=== PATIENT | male | born 1950 | race Caucasian/White ===

== ENCOUNTER → 2019-01-21 | Outpatient (CLI) | payer MEDICAID, SELFPAY | END | disposition home or self-care (01) | PROVIDERS: Family Provider Physician Assistant; PCP Physician Assistant; Referring Provider Emergency Medicine; Visit Provider Emergency Medicine | DX: R07.9 Chest pain, unspecified (principal) | CPT/HCPCS: 84484 ==

== ENCOUNTER 2019-01-22 15:20 | Observation (INO) | payer MEDICARE, SELFPAY ==
[2019-01-22 15:22] VITALS: BP 113/67; PULSE 54; RESP 16; TEMP 36.6; O2SAT 98; BMI 27.4
--- NOTE | 2019-01-22 15:46 | CT_ITS ---
STUDY: CT ABDOMEN AND PELVIS WITH CONTRAST REASON FOR EXAM: Male, 68 years old. Diffuse abdominal pain with history of prior AAA repair RADIATION DOSAGE (If Supplied By Facility): CTDIvol = ( 15.66 ) mGy, DLP = ( 882.48 ) mGycm TECHNIQUE: Transaxial images were obtained from the dome of the diaphragm to the symphysis pubis without oral contrast. IV Isovue 300 75 was administered. Sagittal and coronal images were reconstructed. Individualized dose optimization techniques were used for this CT. COMPARISON: None. FINDINGS: The visualized portions of the heart are within normal limits. Normal liver. There are surgical clips in the gallbladder fossa consistent with a prior cholecystectomy. Normal spleen. Normal pancreas. Normal bilateral adrenal glands. Atrophy of the bilateral kidneys. There are simple bilateral renal cysts. Normal visualized stomach. Normal small intestine. There is long segment (diffuse) wall thickening of the colon including the right, transverse and left colon. There is non-visualization of the appendix. Significant tortuosity of descending thoracic aorta. There is a granuloma in the left lower lobe. Aortobiiliac stent graft is identified with abdominal aortic aneurysm measuring up to 5.9 cm. No endoleak or periaortic fluid/extravasation. Normal inferior vena cava. There is borderline retroperitoneal lymphadenopathy with enlarged nodes no greater than 10mm in the short axis diameter adjacent to the proximal aortic stent graft (renal artery level). Normal urinary bladder. There is enlargement of the prostate gland. Normal abdominal wall. There are diffuse degenerative changes of the visualized lumbar spine. CT/Abdomen/Pelvis W IV Cont ONLY IMPRESSION: 1. Long segment/diffuse colon wall thickening suggesting colitis. No evidence of bowel obstruction. No focal fluid collection. 2. Mild mid retroperitoneal adenopathy without dominant va mass (adjacent to proximal aortic stent graft margin). Electronically Signed: Yonis Bella MD (Brooks) at 17:08 EDT , Service support ,
--- NOTE | 2019-01-22 15:46 | EKG12_ITS ---
Test Reason : Blood Pressure : / mmHG Vent. Rate : 048 BPM Atrial Rate : 048 BPM P-R Int : 174 ms QRS Dur : 090 ms QT Int : 474 ms P-R-T Axes : 066 051 035 degrees QTc Int : 423 ms Sinus bradycardia Otherwise normal ECG Confirmed by GIULIANO ROPER, MADELEINE ([id number]), video effects editor FROILAN NEWTON ([id number]) on 02/02/2019 9:16:04 A M Referred By: DARIEN Confirmed By:MARISELA NOBLES MD
--- NOTE | 2019-01-22 15:47 | ED.DCSUM_ITS ---
History of Present Illness Chief Complaint: Nausea/Vomiting/Diarrhea Informant: Patient Onset: Days - 4 Context: Gradual Onset Timing: Intermittent Narrative: Patient is a 68-year-old male with history of coronary artery disease ([address]), aortic aneurysm status post stenting-patient, chronic diarrhea, and hypertension presenting with vomiting and diarrhea. Patient states he has not been feeling well for the past few days and has not been able to eat. He states whenever he eats he has vomiting and diarrhea. He states he had 2 episodes of diarrhea today. He denies any blood in his vomit or stool. He has not had any vomiting today. He is taken Imodium is not been helping. Patient denies any associated abdominal pain, chest pain, shortness of breath, sweating or urinary symptoms. Patient states his symptoms are slightly improved today but still present. He went to urgent care at [facility] yesterday. He was sent home. Patient was then called because apparently he was supposed to go to the emergency room for a CT. Patient states that he is not sure why they wanted a CT but that it was because he has a bent aorta. Past Medical History - Allergies and Home Meds Allergies/Adverse Reactions: Allergies tiotropium [From Spiriva with HandiHaler] Allergy (Verified 01/22/19 15:21) Swelling Smoking Status: Current every day smoker Review of Systems All systems negative except as indicated Gastrointestinal: Reports: Nausea, Vomiting, Diarrhea. Denies: Melena, Hematochezia Physical Exam Vital Signs/Narrative: Vital Signs Temp Pulse Resp BP Pulse Ox 01/22/19 15:22 97.9 F 54 L 16 113/67 98 Inital Vital Signs reviewed: Yes General: Well nourished, Well developed, No Acute Distress Head: Normocephalic, Atraumatic Eyes: Perrl, EOMI ENT: No rhinorrhea, Dry mucous membranes Neck: Supple, Nontender Cardiovascular: Regular rate, Regular rhythm, No murmurs Respiratory: No distress, CTA bilaterally, Chest nontender Abdomen: Soft, Nontender, Nondistended, Hypoactive bowel sounds, - - No pulsatile mass Back: Nontender, Normal Inspection Extremities: Nontender, No edema Skin: Normal color, No rash Neurological: Alert, Oriented x3, Cranial nerves II-XII grossly intact, Normal Strength, Normal Sensation Psychological: Normal affect, Normal Mood Diagnostic/Tx/Re-eval Clinical Impression(s) from Imaging Studies Abdomen/Pelvis CT 01/22/19 15:46 IMPRESSION: 1. Long segment/diffuse colon wall thickening suggesting colitis. No evidence of bowel obstruction. No focal fluid collection. 2. Mild mid retroperitoneal adenopathy without dominant va mass (adjacent to proximal aortic stent graft margin). Electronically Signed: Yonis Bella MD (Brooks) at 17:08 EDT , Service support , Laboratory Data 01/22/19 01/22/19 15:56 15:56 WBC 6.8 RBC 4.44 L Hgb 14.7 Hct 44.2 MCV 99.5 H MCH 33.1 H MCHC 33.3 RDW Std Deviation 46.8 H RDW Coeff of Kylie 12.8 Plt Count 163 MPV 9.5 Immature Gran % (Auto) 0.300 Neut % (Auto) 64.2 Lymph % (Auto) 25.7 [place] % (Auto) 7.1 Eos % (Auto) 2.1 Baso % (Auto) 0.6 Absolute Neuts (auto) 4.4 Absolute Lymphs (auto) 1.75 Nucleated RBC % 0 Sodium 137 Potassium 3.9 Chloride 104 Carbon Dioxide 29.0 Anion Gap 4 L BUN 29 H Creatinine 1.93 H Estim Creat Clear Calc 30.25 Est GFR (MDRD) Af Amer 45 L Est GFR (MDRD) Non-Af 37 L BUN/Creatinine Ratio 15.0 Glucose 166 H Calcium 9.5 Total Bilirubin 0.50 AST 16 ALT 18 Alkaline Phosphatase 95 Troponin I < 0.015 Total Protein 8.6 H Albumin 3.7 Globulin 4.9 H Albumin/Globulin Ratio 0.8 L Lipase 110 - Rhythm Strip Rhythm Strip: Sinus bradycardia Rate: 48 Ectopy: None - EKG Initial EKG Interpretation: Sinus Bradycardia, - - Normal intervals Normal ST segments Normal axis No prior EKG available for comparison - Medical Decision Making Patient is evaluated for a couple days of diarrhea and decreased appetite. He appears nontoxic in no acute distress. Vital signs remarkable for bradycardia. Patient is on blood pressure medication which may cause this. Abdomen is soft and nontender. He has normal white blood cell count. Patient does not have diarrhea while in the emergency room. I do not suspect C. difficile at this time however stool culture is ordered. Patient does have an elevated creatinine. His states he has a history of CKD 3. No prior lab work is available so I am not sure if this is an acute or chronic elevation of his crea tinine. Patient is given a liter of IV fluids in the emergency room. CT of the abdomen does show colitis. He will be admitted for IV antibiotics and further monitoring. He is agreeable to this plan. He is given first dose of Rocephin and Flagyl in the emergency room. He is stable for the general medical floor at time of disposition. ED Disposition - Plan for ED Patient: Disposition: Acute [facility] Diagnosis: Colitis, Elevated serum creatinine
[2019-01-22] MEDS: Ondansetron 4 MG/2 ML Vial IV (16:01)
[2019-01-22] MEDS: 0.9% Normal Saline 1,000 ML 1000 ML IV (16:01)
[2019-01-22 16:21] LABS: ALB/GLOB Ratio 0.8 RATIO (0.9-2.4); AST(SGOT) 16 U/L (15-37); Alanine Aminotransfer ALT/SGPT 18 U/L (16-61); Albumin, Serum 3.7 g/dL (3.2-5.0); Alkaline Phosphatase 95 U/L (45-117); Anion Gap 4 (5-15); BUN 29 mg/dL (7-18); Calcium,Total 9.5 mg/dL (8.5-10.1); Chloride 104 mmol/L (98-107); Creatinine, Serum 1.93 mg/dL (0.70-1.30); EST Glomerular Filtration Rate 37 mL/min (>60); Est Glom Filt Rate - Afr Amer 45 mL/min (>60); Estimated Creatinine Clearance 30.25 ml/min; Globulin 4.9 g/dL (2.2-4.2); Glucose 166 mg/dL (74-106); Lipase 110 U/L (73-393); Potassium 3.9 mmol/L (3.5-5.1); Protein, Total 8.6 g/dL (6.4-8.2); Sodium Level 137 mmol/L (136-145)
[2019-01-22 16:24] LABS: Absolute Lymphocyte Count 1.75 X10^3/uL (0.83-4.51); Absolute Neutrophil Count 4.4 X10^3/uL (2.0-7.7); Basophil# 0.04 X10^3/uL; Basophil% 0.6 % (0-1); Eosinophil# 0.14 X10^3/uL; Eosinophils% 2.1 % (0-5); Hematocrit 44.2 % (40-54); Hemoglobin 14.7 g/dL (13.0-16.5); Lymphocyte # 1.75 X10^3/ul (4.0); Lymphocyte % 25.7 % (19-41); Mean Corp Hgb Conc 33.3 g/dL (32-36); Mean Corpuscular Hgb 33.1 pg (27.0-32.0); Mean Corpuscular Volume 99.5 fL (80-94); Mean Platelet Vol. 9.5 fl (6.2-12.0); Monocyte# 0.48 X10^3/uL; Monocyte% 7.1 % (0-10); NRBC Flagged by Analyzer 0 % (0-5); Neutrophil # 4.37 X10^3/uL (2.7-7.7); Neutrophil % 64.2 % (47-70); Platelet Count 163 K/mm3 (150-450); RBC Distribution Width CV 12.8 % (11.6-14.6); RBC Distribution Width SD 46.8 fl (35.1-43.9); Red Blood Count 4.44 M/mm3 (4.6-6.2); White Blood Count 6.8 K/mm3 (4.4-11.0)
--- NOTE | 2019-01-22 17:36 | HP.PCM_ITS ---
History of Present Illness Date of Admission: 01/22/19 Chief Complaint: diarrhea and vomiting The patient is a 68 year old M with a past medical history of CAD status post stents x2 in 2014, and hypertension. He was admitted through the ED on 01/22/2019 with a complaint of diarrhea and vomiting for the past few days prior to admission. He had no assisted fever and chills and denied taking any antibiotics recently. He had gone to a [facility] urgent care on the day prior to admission and was sent home. However on the morning of admission, his daughter was called from the urgent care and told that an x-ray of his abdomen which was done on the day of admission showed a twist in his aorta in his chest and abdomen so recommended that he come to the emergency room for a CT scan to evaluate this. Diarrhea has improved and he had only 2 episodes today. he also complained of mild chest pain yesterday, which resolved spontaneously, and he hasnt had any symptoms since then. He is able to tolerate oral liquids but he was up when he takes solids. Patient states he has been told he has stage III kidney disease and is scheduled to see a professional tutor soon. also said that he had been noted to have a slow heart rate and his heart rate went as low as 47 today. Patient is on beta-blockers on account of CAD but states he has not had a history of slow heart rate in the past. Evaluation in the ED, blood pressure was 147/87 and pulse rate was 50. Chemistry showed creatinine of 1.93 with no baseline in the EMR; chemistry was otherwise normal. CBC showed no leukocytosis and was otherwise normal. CT of the abdomen and pelvis done showed a long segment diffuse colon wall thickening suggesting colitis with no evidence of bowel obstruction and no focal fluid collection with mild mid retroperitoneal adenopathy without dominant va mass. He has been admitted to be managed for colitis. [] Past Medical History Allergies tiotropium [From Spiriva with HandiHaler] Allergy (Verified 01/22/19 15:21) Swelling Home Medications: Ambulatory Orders Medication Instructions Recorded Albuterol Inhaler [Ventolin Hfa 2 puff INHALATION Q4H PRN PRN 01/22/19 (SP)] Amlodipine [Norvasc] 5 mg PO DAILY 01/22/19 Aspirin E.C. [Ecotrin] 81 mg PO DAILY@0800 01/22/19 Atorvastatin Calcium [Lipitor] 20 mg PO QHS 01/22/19 Budesonide/Formoterol Fumarate 10.2 gm IH 4X/DAY PRN PRN 01/22/19 [Symbicort 80-4.5 Mcg Inhaler] Carvedilol 25 mg PO DAILY 01/22/19 Cholecalciferol (Vitamin D3) 1,000 unit PO DAILY 01/22/19 [Vitamin D3] Clonidine HCl [Catapres] 0.1 mg PO BID 01/22/19 Clopidogrel Bisulfate [Clopidogrel] 75 mg PO DAILY 01/22/19 Duloxetine Hcl [Cymbalta] 30 mg PO BID 01/22/19 Famotidine [Pepcid] 20 mg PO BID 01/22/19 Loperamide [Imodium] 2 mg PO BID 01/22/19 Loratadine [Claritin] 10 mg PO DAILY 01/22/19 Mometasone Furoate [Nasonex] 2 spray NASAL DAILY 01/22/19 Prednisone 20 mg PO DAILY 01/22/19 Surgical History: no surgical history Psychiatric History: Depression Lives: Spouse/ Significant Other Smoking Status: Current every day smoker Tobacco Use: Cigarettes - Half pack daily Alcohol: None Drugs: None - *Family History Maternal History Items: No pertinent history Paternal History Items: No pertinent history Review of Systems Constitutional: Denies: Chills, Fever, Malaise, Weakness, Weight Change, Fatigue Eyes: Denies: Blurred vision HEENT: Denies: Head Aches, Sinus Congestion, Sinus Drainage Cardiovascular: Denies: Chest Pain, Palpitations Respiratory: Denies: Cough, Shortness of breath at rest, Sputum production Gastrointestinal: Reports: Diarrhea, Nausea, Vomiting. Denies: Abdominal Pain Genitourinary: Denies: Dysuria Musculoskeletal: Denies: Joint Pain, Joint Tenderness Skin: Denies: Rash, Wounds Neurological: Denies: Numbness, Tingling, Focal weakness Psychiatric: Denies: Anxiety, Depression, Homicidal Ideations, Suicidal Ideations Hematologic/ Lymphatic: Denies: Easy Bruising, Easy Bleeding VTE Information - Inpt Only VTE Present on Admission: No VTE Pharm Prophylaxis ordered?: Yes - Physical Exam General: Alert, Oriented x3, Cooperative, No apparent distress HEENT: Atraumatic, PERRLA, EOMI, Normocephalic Oral: Dry Mucosa Neck: Supple, No JVD, Negative Carotid Bruits Lungs: Clear to auscultation, Normal air movement, No rhonchi, No wheeze, No rales Cardiovascular: Regular rate, Regular Rhythm, Normal S1, Normal S2, No murmurs Abdomen: Bowel Sounds Present, Soft, Non Tender, Non-Distended, No Hepato- splenomegaly Extremities: No clubbing, No cyanosis, No edema, Capillary Refill Less than 3 Seconds Skin: No rashes, No breakdown Musculoskeletal: No Tenderness to Palpation of Joints or Extremities Lymphatic: No Cervical, Supraclavicular, or Inguinal Adenopathy Neurological: Cranial nerves II-XII grossly intact, Neuro grossly intact, Motor Exam 5/5 strength throughout Psych/Mental Status: Normal Affect, Appropriate, Alert and oriented to time, place, person, mood and affect Vital Signs Temp Pulse Resp BP Pulse Ox 97.9 F 54 L 16 113/67 98 01/22/19 15:22 01/22/19 15:22 01/22/19 15:22 01/22/19 15:22 01/22/19 15:22 Oxygen Delivery Method Room Air Weight: 160 lb Body Mass Index (BMI) 27.4 Intake and Output for Last 24 Hours 01/20/19 01/21/19 01/22/19 23:59 23:59 23:59 Intake Total 1000 / 1000 Balance 1000 / 1000 Laboratory Tests Past 24 Hrs 01/22/19 01/22/19 15:56 15:56 WBC 6.8 RBC 4.44 L Hgb 14.7 Hct 44.2 MCV 99.5 H MCH 33.1 H MCHC 33.3 RDW Std Deviation 46.8 H RDW Coeff of Kylie 12.8 Plt Count 163 MPV 9.5 Immature Gran % (Auto) 0.300 Neut % (Auto) 64.2 Lymph % (Auto) 25.7 [place] % (Auto) 7.1 Eos % (Auto) 2.1 Baso % (Auto) 0.6 Absolute Neuts (auto) 4.4 Absolute Lymphs (auto) 1.75 Nucleated RBC % 0 Sodium 137 Potassium 3.9 Chloride 104 Carbon Dioxide 29.0 Anion Gap 4 L BUN 29 H Creatinine 1.93 H Estim Creat Clear Calc 30.25 Est GFR (MDRD) Af Amer 45 L Est GFR (MDRD) Non-Af 37 L BUN/Creatinine Ratio 15.0 Glucose 166 H Calcium 9.5 Total Bilirubin 0.50 AST 16 ALT 18 Alkaline Phosphatase 95 Troponin I < 0.015 Total Protein 8.6 H Albumin 3.7 Globulin 4.9 H Albumin/Globulin Ratio 0.8 L Lipase 110 Diagnostic Data Abdomen/Pelvis CT 01/22/19 15:46 IMPRESSION: 1. Long segment/diffuse colon wall thickening suggesting colitis. No evidence of bowel obstruction. No focal fluid collection. 2. Mild mid retroperitoneal adenopathy without dominant va mass (adjacent to proximal aortic stent graft margin). Electronically Signed: Yonis Bella MD (Brooks) at 17:08 EDT , Service support , Assessment/Plan 68 y/o admitted with a complaint of diarrhea and vomiting. 1. colitis, likely infectious * patient has had 2 episodes of nonbloody diarrhea and vomiting today * denies any significant abdominal pain * CT abdomen showed long segment/diffuse colon wall thickening suggesting colitis with no bowel obstruction or focal fluid collection * admit to Med surg * hydrate with IVF * C Diff screen * patient says diarrhea is actually getting better, and he is able to tolerate oral diet. Patient received a dose of IV ceftriaxone and flagyl in the ED * clear liquid diet, to advance as tolerated. * 2. Bradycardia * HR was 50 at time of review; says HR was as low as 47 on admission. Doesnt have a history of bradycardia. * Hold beta blockers for now and monitor * 3.CAD s/p stents: had 2 stents placed in [place] in 2016. On aspirin, Plavix, atorvastatin and carvedilol. Carvedilol currently on hold. 4. CKD stage III: * Creatinine is 1.93. Baseline is not known. * However patient and his state he has been diagnosed with CKD stage III and is scheduled to follow-up with Dr. Bettye horowitz. * 5. Hypertension: On amlodipine and carvedilol. Also on clonidine. Carvedilol held as under 2. DVT prophylaxis: Lovenox Code Visit OBSV E&M: 43393 Initial observation care L2
[2019-01-22] MEDS: Ceftriaxone 1 GM/50 ML BAG IV (17:55)
[2019-01-22 17:56] VITALS: BP 147/87; PULSE 50; RESP 16; O2SAT 92
[2019-01-22 18:20] VITALS: BMI 28.0; BMI 28.1
[2019-01-22 18:35] VITALS: BP 144/80; PULSE 53; RESP 18; TEMP 36.8; O2SAT 92
[2019-01-22] MEDS: 0.9% Normal Saline 1,000 ML 150 ML IV (18:51)
[2019-01-22] MEDS: metroNIDAZOLE 500 MG/100 ML BAG 100 MG IV (18:53)
[2019-01-22 19:38] LABS: Bacteria 0 SEEN /hpf (None Seen); Mucous, Urine 0 SEEN /hpf (<or=2+); White Blood Cells 0 SEEN /hpf (0-5)
[2019-01-22 19:43] LABS: Color, Urine Yellow (Yellow); Glucose, Dipstick Normal (Normal); Ketone-Dipstick Negative (Negative); Leukocyte Esterase-Dipstick Negative /ul (Negative); Nitrite-Dipstick Negative (Negative); Occult Blood-Urine 25 /ul (Negative); Protein-Dipstick 30 mg/dl (Negative); Specific Gravity, Urine 1.015 (1.002-1.030); Urine Bilirubin Dipstick Negative (Negative); Urine Clarity Sl. Cloudy (Clear); Urine Urobilinogen 1 mg/dl (Normal)
[2019-01-22 19:49] LABS: Red Blood Cells-Urine 0-5 SEEN /hpf (0-5)
[2019-01-22 19:50] LABS: Amorphous Sediment 1+ URATE; Squamous Epithelial Cells - UA 0-5 SEEN /hpf (0-5)
--- NOTE | 2019-01-22 20:10 | NURSING ---
Updated home medication list provided by pt's daughter. Changes made to home med list in computer and made known to primary RN.
[2019-01-22 21:32] VITALS: BP 148/82; PULSE 58; RESP 16; TEMP 36.4; O2SAT 96
[2019-01-22] MEDS: DULoxetine Hcl 30 MG Capsule PO (21:40)
[2019-01-22] MEDS: cloNIDine HCl 0.1 MG Tablet PO (21:40)
[2019-01-22] MEDS: Atorvastatin Calcium 20 MG Tablet PO (21:40)
[2019-01-22 21:46] VITALS: O2SAT 96
[2019-01-23] MEDS: 0.9% Normal Saline 1,000 ML 150 ML IV (02:37)
[2019-01-23 04:37] VITALS: BP 150/74; PULSE 60; RESP 18; TEMP 36.3; O2SAT 96
[2019-01-23] MEDS: 0.9% NaCl Peripheral Flush Adult/Peds IV (04:49)
[2019-01-23 04:55] VITALS: PULSE 56; RESP 14; O2SAT 92
[2019-01-23] MEDS: Albuterol 2.5 MG/3 ML VIAL.NEB. INHALATION (04:55)
[2019-01-23 07:12] VITALS: O2SAT 96
[2019-01-23 07:36] VITALS: BP 140/60; PULSE 57; RESP 20; TEMP 36.5; O2SAT 93
[2019-01-23] MEDS: Fluticasone 0.05% 1 SPRAY NASAL.SRY NASAL (07:39)
[2019-01-23] MEDS: amLODIPine 5 MG Tablet PO (07:40)
[2019-01-23] MEDS: Clopidogrel Bisulfate 75 MG Tablet PO (07:41)
[2019-01-23] MEDS: DULoxetine Hcl 30 MG Capsule PO (07:41)
[2019-01-23] MEDS: Famotidine 20 MG Tablet PO (07:41)
[2019-01-23] MEDS: Aspirin E.C. 81 MG Tablet PO (07:41)
[2019-01-23] MEDS: cloNIDine HCl 0.1 MG Tablet PO ×2 (07:41→21:19)
[2019-01-23] MEDS: Loratadine 10 MG Tablet PO (07:41)
[2019-01-23 08:09] LABS: Anion Gap 6 (5-15); BUN 23 mg/dL (7-18); BUN/Creat Ratio 14.6 RATIO (10-20); Calcium,Total 8.5 mg/dL (8.5-10.1); Chloride 111 mmol/L (98-107); Creatinine, Serum 1.57 mg/dL (0.70-1.30); EST Glomerular Filtration Rate 47 mL/min (>60); Est Glom Filt Rate - Afr Amer 57 mL/min (>60); Estimated Creatinine Clearance 37.18 ml/min; Glucose 91 mg/dL (74-106); Potassium 4.1 mmol/L (3.5-5.1); Sodium Level 141 mmol/L (136-145)
[2019-01-23 08:10] LABS: Thyroid Stim Hormone (TSH) 1.22 uIU/mL (0.358-3.74)
[2019-01-23 08:54] LABS: Basophil% 0.6 % (0-1); Eosinophils% 2.2 % (0-5); Hematocrit 40.2 % (40-54); Hemoglobin 13.3 g/dL (13.0-16.5); Lymphocyte % 30.8 % (19-41); Mean Corp Hgb Conc 33.1 g/dL (32-36); Mean Corpuscular Hgb 33.4 pg (27.0-32.0); Mean Platelet Vol. 9.5 fl (6.2-12.0); Monocyte% 11.1 % (0-10); Platelet Count 142 K/mm3 (150-450); RBC Distribution Width CV 13.1 % (11.6-14.6); RBC Distribution Width SD 48.3 fl (35.1-43.9); Red Blood Count 3.98 M/mm3 (4.6-6.2); White Blood Count 6.4 K/mm3 (4.4-11.0)
[2019-01-23 08:55] LABS: Absolute Lymphocyte Count 1.97 X10^3/uL (0.83-4.51); Absolute Neutrophil Count 3.5 X10^3/uL (2.0-7.7); Basophil# 0.04 X10^3/uL; Eosinophil# 0.14 X10^3/uL; Lymphocyte # 1.97 X10^3/ul (4.0); Monocyte# 0.71 X10^3/uL; NRBC Flagged by Analyzer 0 % (0-5); Neutrophil # 3.52 X10^3/uL (2.7-7.7)
[2019-01-23] MEDS: Ciprofloxacin 400 MG/200 ML BAG 200 MG IV ×2 (10:02→22:40)
[2019-01-23] MEDS: 0.9% NaCl IVPB Med Flush (250 mL) 15 ML IV (11:24)
[2019-01-23] MEDS: metroNIDAZOLE 500 MG/100 ML BAG 100 MG IV ×2 (11:24→21:19)
--- NOTE | 2019-01-23 12:43 | PN_ITS ---
Patient Problems: Active and Suspected Problems Colitis (Acute) Subjective: Feels better. No further diarrhea. Vitals/I&O's: Vital Signs Temp Pulse Resp BP Pulse Ox 36.5 C L 57 L 20 H 140/60 H 93 01/23/19 07:36 01/23/19 07:36 01/23/19 07:36 01/23/19 07:36 01/23/19 07:36 Oxygen Flow Rate (L/min) 2 Oxygen Delivery Method Nasal Cannula Weight: 74.2 kg Body Mass Index (BMI) 28.0 Intake and Output for Last 24 Hours 01/21/19 01/22/19 01/23/19 23:59 23:59 23:59 Intake Total 1152.5 / 1152.5 2397.5 / 2397.5 Balance 1152.5 / 1152.5 2397.5 / 2397.5 General: Alert, No apparent distress HEENT: Atraumatic, Normocephalic Oral: Moist Mucosa, No Gingival or Mucosal Lesions/ Ulcerations Neck: No Nodes, Thyroid Normal Size and Texture Lungs: Clear to auscultation, Normal air movement, No rhonchi, No wheeze Cardiovascular: Regular rate, Regular Rhythm, Normal S1, Normal S2, No murmurs Abdomen: Bowel Sounds Present, Soft, Non Tender, Non-Distended, No Hepato- splenomegaly Extremities: No edema, No Calf Tenderness Psych/Mental Status: Normal Affect, Appropriate Laboratory Results 01/22/19 15:56: WBC 6.8, RBC 4.44 L, Hgb 14.7, Hct 44.2, MCV 99.5 H, MCH 33.1 H, MCHC 33.3, RDW Std Deviation 46.8 H, RDW Coeff of Kylie 12.8, Plt Count 163, MPV 9.5, Immature Gran % (Auto) 0.300, Neut % (Auto) 64.2, Lymph % (Auto) 25.7, Lucas % (Auto) 7.1, Eos % (Auto) 2.1, Baso % (Auto) 0.6, Absolute Neuts (auto) 4.4, Absolute Lymphs (auto) 1.75, Nucleated RBC % 0 01/22/19 15:56: Sodium 137, Potassium 3.9, Chloride 104, Carbon Dioxide 29.0, Anion Gap 4 L, BUN 29 H, Creatinine 1.93 H, Estim Creat Clear Calc 30.25, Est GFR (MDRD) Af Amer 45 L, Est GFR (MDRD) Non-Af 37 L, BUN/Creatinine Ratio 15.0, Glucose 166 H, Calcium 9.5, Total Bilirubin 0.50, AST 16, ALT 18, Alkaline Phosphatase 95, Troponin I < 0.015, Total Protein 8.6 H, Albumin 3.7, Globulin 4.9 H, Albumin/Globulin Ratio 0.8 L, Lipase 110 01/22/19 19:30: Urine Color Yellow, Urine Clarity Sl. Cloudy, Urine pH 6.0, Ur Specific Richards 1.015, Urine Protein 30 H, Urine Glucose (UA) Normal, Urine Ketones Negative, Urine Occult Blood 25 H, Urine Nitrite Negative, Urine Bilirubin Negative, Urine Urobilinogen 1 H, Ur Leukocyte Esterase Negative, Urine RBC 0-5 SEEN, Urine WBC 0 SEEN, Ur Squamous Epith Cells 0-5 SEEN, Amorphous Sediment 1+ URATE, Urine Bacteria 0 SEEN, Urine Mucus 0 SEEN 01/23/19 06:38: Sodium 141, Potassium 4.1, Chloride 111 H, Carbon Dioxide 24.0, Anion Gap 6, BUN 23 H, Creatinine 1.57 H, Estim Creat Clear Calc 37.18, Est GFR (MDRD) Af Amer 57 L, Est GFR (MDRD) Non-Af 47 L, BUN/Creatinine Ratio 14.6, Glucose 91, Calcium 8.5, TSH 1.22 01/23/19 06:38: WBC 6.4, RBC 3.98 L, Hgb 13.3, Hct 40.2, MCV 101.0 H, MCH 33.4 H , MCHC 33.1, RDW Std Deviation 48.3 H, RDW Coeff of Kylie 13.1, Plt Count 142 L, MPV 9.5, Immature Gran % (Auto) 0.300, Neut % (Auto) 55.0, Lymph % (Auto) 30.8, Lucas % (Auto) 11.1 H, Eos % (Auto) 2.2, Baso % (Auto) 0.6, Absolute Neuts (auto) 3.5, Absolute Lymphs (auto) 1.97, Nucleated RBC % 0 Current Medications Albuterol Sulfate (Ventolin Aerosols) 2.5 mg INHALATION Q4H PRN Last Admin: 01/23/19 04:55 Dose: 2.5 mg Documented by: Amlodipine Besylate (Norvasc) 5 mg PO DAILY [facility] Last Admin: 01/23/19 07:40 Dose: 5 mg Documented by: Aspirin (Ecotrin) 81 mg PO DAILY@0800 [facility] Last Admin: 01/23/19 07:41 Dose: 81 mg Documented by: Atorvastatin Calcium (Lipitor) 20 mg PO QHS [facility] Last Admin: 01/22/19 21:40 Dose: 20 mg Documented by: Cholecalciferol (Vitamin D) 1,000 unit PO DAILY [facility] Last Admin: 01/23/19 07:40 Dose: 1,000 unit Documented by: Clonidine (Catapres) 0.1 mg PO BID [facility] Last Admin: 01/23/19 07:41 Dose: 0.1 mg Documented by: Clopidogrel Bisulfate (Plavix) 75 mg PO DAILY [facility] Last Admin: 01/23/19 07:41 Dose: 75 mg Documented by: Dextrose (D50w Syringe) 0 gm IV X1 PRN; Protocol PRN Reason: Hypoglycemia Famotidine (Pepcid) 20 mg PO DAILY [facility] Last Admin: 01/23/19 07:41 Dose: 20 mg Documented by: Fluticasone Propionate (Flonase Nasal [place]) 0 spray NASAL DAILY [facility] Last Admin: 01/23/19 07:39 Dose: 1 spray Documented by: Glucagon () 1 mg IM .X1 PRN PRN Reason: Hypoglycemia Ciprofloxacin (Cipro) 400 mg in 200 mls @ 200 mls/hr IV Q12 [facility] Last Infusion: 01/23/19 11:02 Dose: Infused Documented by: Metronidazole (Flagyl) 500 mg in 100 mls @ 100 mls/hr IV Q8 [facility] Last Admin: 01/23/19 11:24 Dose: 100 mls/hr Documented by: Sodium Chloride () 250 mls @ 15 mls/hr IV .[id number] PRN PRN Reason: SALINE FLUSH Last Infusion: 01/23/19 11:24 Dose: 0 mls/hr Documented by: Loratadine (Claritin) 10 mg PO DAILY [facility] Last Admin: 01/23/19 07:41 Dose: 10 mg Documented by: Ondansetron HCl (Zofran) 4 mg IV Q8H PRN PRN PRN Reason: NAUSEA/VOMITING Sodium Chloride () 5 - 15 ml IV UD PRN PRN Reason: SALINE FLUSH Last Admin: 01/23/19 04:49 Dose: 10 ml Documented by: Medical Necessity - Tobacco Use Smoking Status: Current every day smoker Tobacco Use: Cigarettes Assessment/Plan All Active Problems Colitis (Acute) 1. acute colitis * presumably infectious * diet advanced * continue abx * stool studies ordered, but not performed yet. 2. KENNY * presumed as we don't have any baseline labs * admission creatinine 1.97, down to 1.57 * monitor 3. bradycardia, mild * suspect iatrogenic from carvedilol, recommend decreasing to 12.5 BID and observe * likely this is chronic * asymptomatic 4. VTE proph: LMWH Code Visit Inpatient E&M: 47043 Subs Hosp L2
[2019-01-23 13:39] VITALS: BP 128/72; PULSE 60; RESP 18; TEMP 36.9; O2SAT 92
[2019-01-23 19:49] VITALS: BP 139/73; PULSE 65; RESP 18; TEMP 36.6; O2SAT 92
[2019-01-23] MEDS: Atorvastatin Calcium 20 MG Tablet PO (21:19)
[2019-01-23] MEDS: Carvedilol 12.5 MG Tablet PO (21:21)
[2019-01-24 02:30] VITALS: BP 150/75; PULSE 58; RESP 16; TEMP 36.5; O2SAT 95
[2019-01-24] MEDS: metroNIDAZOLE 500 MG/100 ML BAG 100 MG IV (05:21)
[2019-01-24] MEDS: Enoxaparin 40 MG/0.4 ML Syringe SC (05:22)
[2019-01-24 06:57] LABS: Absolute Neutrophil Count 4.7 X10^3/uL (2.0-7.7); Basophil# 0.03 X10^3/uL; Basophil% 0.4 % (0-1); Eosinophil# 0.16 X10^3/uL; Eosinophils% 2.1 % (0-5); Hematocrit 38.5 % (40-54); Hemoglobin 12.7 g/dL (13.0-16.5); Lymphocyte % 27.2 % (19-41); Mean Corpuscular Hgb 32.8 pg (27.0-32.0); Mean Corpuscular Volume 99.5 fL (80-94); Mean Platelet Vol. 9.4 fl (6.2-12.0); Monocyte# 0.72 X10^3/uL; Monocyte% 9.3 % (0-10); NRBC Flagged by Analyzer 0 % (0-5); Neutrophil % 60.7 % (47-70); Platelet Count 146 K/mm3 (150-450); RBC Distribution Width SD 47.4 fl (35.1-43.9); Red Blood Count 3.87 M/mm3 (4.6-6.2); White Blood Count 7.7 K/mm3 (4.4-11.0)
[2019-01-24 07:15] LABS: Anion Gap 9 (5-15); BUN 23 mg/dL (7-18); BUN/Creat Ratio 14.1 RATIO (10-20); Calcium,Total 8.6 mg/dL (8.5-10.1); Chloride 107 mmol/L (98-107); Creatinine, Serum 1.63 mg/dL (0.70-1.30); EST Glomerular Filtration Rate 45 mL/min (>60); Est Glom Filt Rate - Afr Amer 54 mL/min (>60); Estimated Creatinine Clearance 35.81 ml/min; Glucose 89 mg/dL (74-106); Potassium 3.8 mmol/L (3.5-5.1); Sodium Level 142 mmol/L (136-145)
[2019-01-24 08:04] VITALS: O2SAT 95
[2019-01-24 08:11] VITALS: BP 139/77; PULSE 56; RESP 16; TEMP 36.3; O2SAT 90
[2019-01-24] MEDS: Aspirin E.C. 81 MG Tablet PO (08:14)
[2019-01-24 08:20] VITALS: O2SAT 90
[2019-01-24] MEDS: Famotidine 20 MG Tablet PO (09:41)
[2019-01-24] MEDS: amLODIPine 5 MG Tablet PO (09:42)
[2019-01-24] MEDS: Loratadine 10 MG Tablet PO (09:43)
[2019-01-24] MEDS: Clopidogrel Bisulfate 75 MG Tablet PO (09:44)
[2019-01-24] MEDS: cloNIDine HCl 0.1 MG Tablet PO (09:44)
[2019-01-24] MEDS: Ciprofloxacin 400 MG/200 ML BAG 200 MG IV (09:48)
--- NOTE | 2019-01-24 10:25 | PN_ITS ---
Patient Problems: Active and Suspected Problems Colitis (Acute) Subjective: The patient is a 68-year-old male with a past medical history of hypertension, tobacco dependence, chronic renal failure stage III, coronary artery disease (2 stents placed in 2014), depression and probable COPD( on Symbicort) who presented to the emergency department at [facility] on 01/22/2019 complaining of diarrhea and vomiting for the preceding few days (was improving). He had been seen at [facility] and sent home but he received a phone call from the [facility] on 01/22/2019 informing him the x-ray of his abdomen showed a twisting his aorta and they advised him to come to the emergency room for a CT scan. CT scan of the abdomen and pelvis showed atrophy of both kidneys with simple renal cysts, a granuloma in the left lower lobe, tortuosity of the descending thoracic aorta, aortobiiliac stent graft with abdominal aortic an eurysm measuring up to 5.9 cm, enlarged prostate gland and a long segment of diffuse wall thickening of the colon including the right, transverse and left colon. CBC was unremarkable. BUN was 29 with a creatinine of 1.93 and a creatinine clearance of 30. We have no prior labs on this gentleman in the computer. TSH was 1.22. A UA had 0 WBCs. He was admitted to the hospital with a diagnosis of colitis, suspected to be infectious and bradycardia (on both a beta chito and Clonidine). He was started on Cipro and Flagyl at admission. On 01/23/2019 he had no diarrhea. None of the stool studies ordered have been completed because he has not had a BM. All events of the past 24 hours have been reviewed. Afebrile since admission Heart rate remains in the 50s ....he remains on both Clonidine and Coreg. WBC has been normal since admission . CREAT is 1.63 today. TSH is normal at 1.22. - Physical Exam Vital Signs Temp Pulse Resp BP Pulse Ox 97.4 F L 56 L 16 139/77 H 90 01/24/19 08:11 01/24/19 08:11 01/24/19 08:11 01/24/19 08:11 01/24/19 08:20 Oxygen Flow Rate (L/min) 3 Oxygen Delivery Method Room Air Weight: 163 lb 9.328 oz Body Mass Index (BMI) 28.0 Intake and Output for Last 24 Hours 01/22/19 01/23/19 01/24/19 23:59 23:59 23:59 Intake Total 1152.5 / 1152.5 3656.25 / 3656.25 385.5 / 385.5 Balance 1152.5 / 1152.5 3656.25 / 3656.25 385.5 / 385.5 Laboratory Tests Past 24 Hrs 01/23/19 01/24/19 01/24/19 06:38 06:05 06:05 WBC 7.7 RBC 3.87 L Hgb 12.7 L Hct 38.5 L MCV 99.5 H MCH 32.8 H MCHC 33.0 RDW Std Deviation 47.4 H RDW Coeff of Kylie 13.0 Plt Count 146 L MPV 9.4 Immature Gran % (Auto) 0.300 Neut % (Auto) 60.7 Lymph % (Auto) 27.2 [place] % (Auto) 9.3 Eos % (Auto) 2.1 Baso % (Auto) 0.4 Absolute Neuts (auto) 4.7 Absolute Lymphs (auto) 2.10 Nucleated RBC % 0 Sodium 141 142 Potassium 4.1 3.8 Chloride 111 H 107 Carbon Dioxide 24.0 26.0 Anion Gap 6 9 BUN 23 H 23 H Creatinine 1.57 H 1.63 H Estim Creat Clear Calc 37.18 35.81 Est GFR (MDRD) Af Amer 57 L 54 L Est GFR (MDRD) Non-Af 47 L 45 L BUN/Creatinine Ratio 14.6 14.1 Glucose 91 89 Calcium 8.5 8.6 TSH 1.22 Medical Necessity - Tobacco Use Smoking Status: Current every day smoker Tobacco Use: Cigarettes Assessment/Plan All Active Problems Colitis (Acute)
--- NOTE | 2019-01-24 11:09 | CASEMGMT ---
Case Management Progress Note: This instructional writer to bedside, introduced self and role. Explained and reviewed CALLE form with patient regarding his current treatment. Notified patient that outpatient billing is determined by his insurance policy and status during hospital stay is reviewed for changes in condition that may warrant inpatient stay. Patient states understanding and signed CALLE form which was placed in patient chart. Patient given a copy and denies any questions or concerns. Delia Hancock RNCM
[2019-01-24] MEDS: 0.9% NaCl IVPB Med Flush (250 mL) 15 ML IV (11:29)
--- NOTE | 2019-01-24 11:50 | DCINST_ITS ---
- Discharge Diagnoses Current Active Problems: Current Active and Chronic Problems Colitis (Acute) You will use the following diet at home:: Other - Resume previous diet....IT SHOULD BE A LOW SALT LOW CHOLESTEROL DIET. Your food should be the consistency of: Regular Your liquids should be the consistency of: Regular/Thin Discharge Activity: Return to Normal Activity Call your doctor if you observe: Fever of 101 or Higher, Shortness of breath, Dizziness, Fainting spells, Swelling in the ankles, Chest pain, - - Recurrent nausea/vomiting/abdominal pain/diarrhea Additional Instructions: 1. i THINK YOU PROBABLY HAD A VIRAL INFECTION THAT CAUSED THE DIARRHEA.......YOU HAVE HAD NO FEVERS, NO ELEVATION OF THE WBC COUNT AND YOUR SYMPTOMS WERE ALREADY GETTING BETTER PRIOR TO ADMISSION. I DO NOT THINK YOU NEED ANTIBIOTICS AND SO I AM NOT SENDING YOU HOME WITH A PRESCRIPTION. IF YOU HAVE RECURRENT NAUSEA, VOMITING, DIARRHEA OR ABDOMINAL PAIN CALL YOUR PCP OR RETURN TO THE ER. 2. YOUR HEART RATE IS SLOW BECAUSE YOU ARE ON 2 MEDICATIONS THAT SLOW YOUR HEART RATE....CLONIDINE AND COREG. THE COREG IS FOR YOUR HEART AND SINCE WE KNOW YOU HAVE CORONARY DISEASE I THINK YOU SHOULD STAY ON THIS MEDICATION. THE CLONIDINE HAS TO BE WEANED OFF SO TAKE THE CLONIDINE ONLY ONCE A DAY FOR THE NEXT 5 DAYS AND THEN DISCONTINUE CLONIDINE. SEE YOUR PCP IN 7-10 DAYS TO HAVE THE BLOOD PRESSURE AND THE HEART RATE CHECKED. 3. SMOKING SIGNIFICANTLY INCREASES THE RISK THAT STENTS AND GRAFTS CLOSE UP.......IT WOULD BE IN YOUR BEST INTEREST TO QUIT SMOKING SINCE IT IS SUCH A HUGE RISK FACTOR FOR STROKES AND HEART ATTACKS. WE HAVE A SMOKING CESSATION PROGRAM AT THE HOSPITAL AND ALL YOU HAVE TO DO IS CALL THE HOSPITAL AND ASK TO SPEAK WITH THE SMOKING CESSATION COORDINATOR. Pending Tests on Discharge: NONE Allergies/Adverse Reactions: Allergies tiotropium [From Spiriva with HandiHaler] Allergy (Verified 01/22/19 15:21) Swelling Medications to take at Discharge Albuterol Inhaler [Ventolin Hfa] 2 puff INHALATION Q4H PRN PRN 01/22/19 Amlodipine [Norvasc] 5 mg PO DAILY 01/22/19 Aspirin E.C. [Ecotrin] 81 mg PO DAILY@0800 01/22/19 Atorvastatin Calcium [Lipitor] 20 mg PO QHS 01/22/19 Budesonide/Formoterol Fumarate [Symbicort 80-4.5 Mcg Inhaler] 2 puff INHALATION BID 01/22/19 Carvedilol 25 mg PO BID 01/22/19 Cholecalciferol (Vitamin D3) [Vitamin D3] 1,000 unit PO DAILY 01/22/19 Clopidogrel Bisulfate [Clopidogrel] 75 mg PO DAILY 01/22/19 Duloxetine Hcl [Cymbalta] 60 mg PO DAILY 01/22/19 Famotidine [Pepcid] 20 mg PO DAILY 01/22/19 Loperamide [Imodium] 4 mg PO Q4H PRN 01/22/19 Loratadine [Claritin] 10 mg PO DAILY 01/22/19 Losartan Potassium 50 mg PO DAILY 01/22/19 Mometasone Furoate [Nasonex] 2 spray NASAL DAILY 01/22/19 Nitroglycerin (INPATIENT USE) [Nitrostat] 0.4 mg SUBLINGUAL PRN PRN 01/22/19 Clonidine HCl [Catapres] 0.1 mg PO DAILY #0 01/24/19 Primary Care Physician: Edi Steven PA [Primary Care Provider] - Please follow up with your Primary Care Physician in: 7-10 DAYS TO CHECK bp AND HEART RATE Test Results: Test results from this visit will be discussed in further detail at your follow- up appointment, if applicable. Proposed Discharge Date: 01/24/19
[2019-01-24 12:45] VITALS: BP 138/100; PULSE 85; RESP 18; TEMP 36.5; O2SAT 90; O2SAT 91
[2019-01-24 12:50] VITALS: BP 138/89
--- NOTE | 2019-01-24 13:35 | DS.PCM_ITS ---
Discharge Date and Diagnosis - Problem List Patient Problems: Active and Suspected Problems Acute kidney injury (Suspected) Bradycardia with 41-50 beats per minute (Acute) Date of Admission: 01/22/19 Date of Discharge: 01/24/19 - Primary Discharge Diagnosis Active and Suspected Problems Acute kidney injury (Suspected) likely has CRF - no baseline lab available Bradycardia with 41-50 beats per minute (Acute) - due to the combined effects of Clonidine and Coreg Colitis - diagnosed from CT scan. Suspect what he had was Viral Gastroenteritis - Secondary Discharge Diagnosis Suspected chronic kidney disease-stage III Hypertension Coronary artery disease with history of PTCA/JULIA in [facility] in 2016 Tobacco dependence Hospital Course and Treatment Imaging Results: Clinical Impression(s) from Imaging Studies Abdomen/Pelvis CT 01/22/19 15:46 IMPRESSION: 1. Long segment/diffuse colon wall thickening suggesting colitis. No evidence of bowel obstruction. No focal fluid collection. 2. Mild mid retroperitoneal adenopathy without dominant va mass (adjacent to proximal aortic stent graft margin). Electronically Signed: Yonis Bella MD (Brooks) at 17:08 EDT , Service support , Laboratory Results - last 24 hr 01/24/19 01/24/19 06:05 06:05 WBC 7.7 RBC 3.87 L Hgb 12.7 L Hct 38.5 L MCV 99.5 H MCH 32.8 H MCHC 33.0 RDW Std Deviation 47.4 H RDW Coeff of Kylie 13.0 Plt Count 146 L MPV 9.4 Immature Gran % (Auto) 0.300 Neut % (Auto) 60.7 Lymph % (Auto) 27.2 [place] % (Auto) 9.3 Eos % (Auto) 2.1 Baso % (Auto) 0.4 Absolute Neuts (auto) 4.7 Absolute Lymphs (auto) 2.10 Nucleated RBC % 0 Sodium 142 Potassium 3.8 Chloride 107 Carbon Dioxide 26.0 Anion Gap 9 BUN 23 H Creatinine 1.63 H Estim Creat Clear Calc 35.81 Est GFR (MDRD) Af Amer 54 L Est GFR (MDRD) Non-Af 45 L BUN/Creatinine Ratio 14.1 Glucose 89 Calcium 8.6 none Operations: None Procedures: None Summary of Care Provided: The patient is a 68-year-old male with a past medical history of hypertension, tobacco dependence, suspected chronic renal failure stage III, coronary artery disease (2 stents placed in 2016 in [facility]), depression and probable COPD or asthma (on Symbicort) who presented to the emergency department at [facility] on 01/22/2019 complaining of diarrhea and vomiting for the preceding few days (sx were improving). He had been seen at an [facility] and sent home but he received a phone call from the [facility] on 01/22/2019 informing him the x-ray of his abdomen showed a twisting of his aorta and they advised him to come to the emergency room for a CT scan. CT scan of the abdomen and pelvis showed atrophy of both kidneys with simple renal cysts, a granuloma in the left lower lobe, tortuosity of the descending thoracic aorta, aortobiiliac stent graft with abdominal aortic aneurysm measuring up to 5.9 cm, enlarged prostate gland and a long segment of diffuse wall thickening of the colon including the right, transverse and left colon. He denied abdominal pain. CBC was unremarkable. BUN was 29 with a creatinine of 1.93 and a creatinine clearance of 30. We have no prior labs on this gentleman in the computer, but I suspect he has chronic renal failure because both kidneys are a trophied. TSH was 1.22. A UA had 0 WBCs. He was admitted to the hospital with a diagnosis of colitis, suspected to be infectious and bradycardia with heart rates in the 40-50 range (on both a beta chito and Clonidine). Coreg was held atr admission and Clonidine was continued. He was started on Cipro and Flagyl at admission. On 01/23/2019 he had no diarrhea. His diet was advanced. None of the stool studies ordered were completed because he had no BM since the morning of admission. On 01/24/19 he denied Nausea, abdominal pain, diarrhea and vomiting. He was tolerating a regular cardiac diet. He was afebrile for the duration of the hospital stay and the WBC counts were WNL X 3. I doubt he had colitis, he was already getting better at the time of admission and his sx completely resolved within 24 H of admission. The diagnosis is more consistent with gastroenteritis. He was not discharged on antibiotics. Since he has a hx of CAD and PCI we thought it more prudent to continue the Coreg and DC the Clonidine. Clonidine must be tapered so he was instructed at discharge to take the Clonidine only once a day for 5 days and then discontinue. He will follow up with James Steven in the office in 7-10 days to check the BP. He was asymptomatic with bradycardia and the heart rate prior to DC was in the 50-60 range at rest. Smoking cessation counselling was provided while he was in the hospital and he was strongly advised to quit smoking. PHYSICAL EXAM: GENERAL: alert, oriented X 3, Cooperative, NAD ORAL: moist mucosa, no mucosal lesions NECK: No JVD, supple, trachea midline LUNGS: CTA, symmetric chest expansion HEART: RRR, Normal S1 and S2, no rub, no gallop ABDOMEN: soft, NT, ND, BS present, no guarding with palpation EXTREMITIES: no edema, no cyanosis, no calf tenderness SKIN: No rashes, no breakdown NEUROLOGIC: no focal neurologic deficits PSYCH: appropriate, normal affect, pleasant This note was generated with [employer] dictation software. It may contain incorrect words, spelling, and punctuation that were not noted in checking the note before signing. Patient Problems: Active and Suspected Problems Acute kidney injury (Suspected) Bradycardia with 41-50 beats per minute (Acute) - Physical Exam Vital Signs Temp Pulse Resp BP Pulse Ox 97.7 F L 85 18 138/89 H 91 01/24/19 12:45 01/24/19 12:45 01/24/19 12:45 01/24/19 12:50 01/24/19 12:45 Oxygen Flow Rate (L/min) 3 Oxygen Delivery Method Room Air Weight: 163 lb 9.328 oz Body Mass Index (BMI) 28.0 Intake and Output for Last 24 Hours 01/22/19 01/23/19 01/24/19 23:59 23:59 23:59 Intake Total 1152.5 / 1152.5 3656.25 / 3656.25 626.50 / 626.50 Balance 1152.5 / 1152.5 3656.25 / 3656.25 626.50 / 626.50 Laboratory Tests Past 24 Hrs 01/24/19 01/24/19 06:05 06:05 WBC 7.7 RBC 3.87 L Hgb 12.7 L Hct 38.5 L MCV 99.5 H MCH 32.8 H MCHC 33.0 RDW Std Deviation 47.4 H RDW Coeff of Kylie 13.0 Plt Count 146 L MPV 9.4 Immature Gran % (Auto) 0.300 Neut % (Auto) 60.7 Lymph % (Auto) 27.2 [place] % (Auto) 9.3 Eos % (Auto) 2.1 Baso % (Auto) 0.4 Absolute Neuts (auto) 4.7 Absolute Lymphs (auto) 2.10 Nucleated RBC % 0 Sodium 142 Potassium 3.8 Chloride 107 Carbon Dioxide 26.0 Anion Gap 9 BUN 23 H Creatinine 1.63 H Estim Creat Clear Calc 35.81 Est GFR (MDRD) Af Amer 54 L Est GFR (MDRD) Non-Af 45 L BUN/Creatinine Ratio 14.1 Glucose 89 Calcium 8.6 Discharge Activity: Return to Normal Activity Call your doctor if you observe: Fever of 101 or Higher, Shortness of breath, Dizziness, Fainting spells, Swelling in the ankles, Chest pain, - - Recurrent nausea/vomiting/abdominal pain/diarrhea Home Medications: Medications to take at Discharge Albuterol Inhaler [Ventolin Hfa] 2 puff INHALATION Q4H PRN PRN 01/22/19 Amlodipine [Norvasc] 5 mg PO DAILY 01/22/19 Aspirin E.C. [Ecotrin] 81 mg PO DAILY@0800 01/22/19 Atorvastatin Calcium [Lipitor] 20 mg PO QHS 01/22/19 Budesonide/Formoterol Fumarate [Symbicort 80-4.5 Mcg Inhaler] 2 puff INHALATION BID 01/22/19 Carvedilol 25 mg PO BID 01/22/19 Cholecalciferol (Vitamin D3) [Vitamin D3] 1,000 unit PO DAILY 01/22/19 Clopidogrel Bisulfate [Clopidogrel] 75 mg PO DAILY 01/22/19 Duloxetine Hcl [Cymbalta] 60 mg PO DAILY 01/22/19 Famotidine [Pepcid] 20 mg PO DAILY 01/22/19 Loperamide [Imodium] 4 mg PO Q4H PRN 01/22/19 Loratadine [Claritin] 10 mg PO DAILY 01/22/19 Losartan Potassium 50 mg PO DAILY 01/22/19 Mometasone Furoate [Nasonex] 2 spray NASAL DAILY 01/22/19 Nitroglycerin (INPATIENT USE) [Nitrostat] 0.4 mg SUBLINGUAL PRN PRN 01/22/19 Clonidine HCl [Catapres] 0.1 mg PO DAILY #0 01/24/19 Primary Care Physician: Edi Steven PA [Primary Care Provider] - Please follow up with your Primary Care Physician in: 7-10 DAYS TO CHECK bp AND HEART RATE Disposition: Home Minutes spent on discharge:: 30 Medical Necessity - Tobacco Use Smoking Status: Current every day smoker Tobacco Use: Cigarettes Meaningful Use Info Meaningful Use Diagnoses (Choose all that apply): None applicable Code Visit Inpatient E&M: 14795 Disch Hosp
== END 2019-01-24 12:55 | disposition home or self-care (01) ==
LOC: ED 15:41 → MS3 18:25
PROVIDERS: Admitting Provider Student in an Organized Health Care Education/Training Program; Emergency Provider Emergency Medicine; Family Provider Physician Assistant; PCP Physician Assistant; Visit Provider Internal Medicine
DX: K52.9 Noninfective gastroenteritis and colitis, unspecified (principal); R00.1 Bradycardia, unspecified; I25.10 Atherosclerotic heart disease of native coronary artery without angina pectoris; I10 Essential (primary) hypertension; F17.210 Nicotine dependence, cigarettes, uncomplicated; F32.9 Major depressive disorder, single episode, unspecified; Z79.899 Other long term (current) drug therapy; Z95.5 Presence of coronary angioplasty implant and graft; Z79.82 Long term (current) use of aspirin; Z79.02 Long term (current) use of antithrombotics/antiplatelets
CPT/HCPCS: 36415; 74177; 80048; 80053; 81001; 83690; 84443; 84484; 85025; 93005; 94640; 96361; 96365; 96366; 96367; 96372; 96375; 99218; 99284; 99406; J7030; J7050; Q9967; A4216; G0378; J0744; J2405

== ENCOUNTER 2019-07-19 19:11 | Inpatient (IN) | payer MEDICARE, MEDICAID, SELFPAY ==
[2019-01-22 18:20] VITALS: BMI 28.0
[2019-07-19 19:14] VITALS: BP 145/75; PULSE 55; RESP 21; TEMP 36.4; O2SAT 94; BMI 21.4
--- NOTE | 2019-07-19 19:14 | ED.RN ---
rn called for ekg, pull old ekgs for
[2019-07-19 19:20] VITALS: BP 145/75; PULSE 55; RESP 21; TEMP 36.4; O2SAT 94
--- NOTE | 2019-07-19 19:24 | CT_ITS ---
STUDY: CT BRAIN WITHOUT CONTRAST REASON FOR EXAM: Male, 69 years old. SYNCOPE EPISODE,ALTERED MENTAL STATUS,NAUSEA -- HX:HTN,COPD RADIATION DOSAGE (If Supplied By Facility): CTDIvol = ( 44.99 ) mGy, DLP = ( 812.98 ) mGycm TECHNIQUE: Transaxial CT imaging of the brain was performed without administration of intravenous contrast material. Individualized dose optimization techniques were used for this CT. COMPARISON: No relevant priors. FINDINGS: Normal soft tissue structures. Normal calvarium. Normal size ventricles and extra-axial spaces for the patient''s age. There are areas of decreased attenuation within the white matter tracts of the supratentorial brain, consistent with microvascular disease changes. Normal age-related changes of the basal ganglia. Normal brainstem. Normal cerebellum. There is no intracranial hemorrhage. There are no findings of an acute ischemic infarction. Remote infarcts in the bilateral brewer radiata. Normal visualized paranasal sinuses. CT/Brain/Head without Contrast IMPRESSION: No CT evidence of acute infarct or hemorrhage. If there is clinical concern for hyperacute ischemia that is not evident by CT, MRI should be considered if possible. Electronically Signed: Mohsen Pulido MD at 19:58 EDT Tel , Service support ,
--- NOTE | 2019-07-19 19:25 | EKG12_ITS ---
Test Reason : CP Blood Pressure : / mmHG Vent. Rate : 057 BPM Atrial Rate : 057 BPM P-R Int : 170 ms QRS Dur : 088 ms QT Int : 476 ms P-R-T Axes : 061 057 057 degrees QTc Int : 463 ms Sinus bradycardia Otherwise normal ECG Confirmed by GIULIANO ROPER, MADELEINE ([id number]), makeup editor GERSON CALLE ([id number]) on 07/26/2019 2:00:11 PM Referred By: MASSIMO Confirmed By:MARISELA NOBLES MD
--- NOTE | 2019-07-19 19:27 | ED.DCSUM_ITS ---
History of Present Illness Chief Complaint: Syncope Informant: Process Design Engineer Onset: Today Context: Sudden Onset Timing: Continuous Quality: Collapsed Location: Home Current Severity: Mild Maximum Severity: Severe Worsened by: Unknown Relieved by: Unknown Associated Symptoms: Unknown Narrative: Patient is a 69-year-old male who had a syncopal episode with incontinence. There was no seizure activity per paramedics. According the nurse who took the report from the paramedics he collapsed. There is no seizure activity. They called for cardiopulmonary arrest since they did not believe he was breathing. Upon arrival he is oriented to person only. He does not appear well. He is breathing shallowly. He is bradycardic on the monitor. No other history is available at this time. Per old records he was admitted the end of last year for colitis and acute kidney injury. Prior similar symptoms: No Recent Illness/Hospitalization: No - Past Medical History (1) Bradycardia with 41-50 beats per minute Status: Acute (2) Acute kidney injury Status: Suspected (3) Colitis Status: Resolved Past Medical History - Allergies and Home Meds Allergies/Adverse Reactions: Allergies tiotropium [From Spiriva with HandiHaler] Allergy (Verified 07/19/19 19:37) Swelling Primary Care Physician: Edi Steven PA [Primary Care Provider] - Prior records reviewed: Yes Surgical History: no surgical history Lives: Spouse/ Significant Other, With Family Smoking Status: Current every day smoker Alcohol: None Drugs: None - Family History Maternal Family History: Reports: No pertinent history Paternal Family History: Reports: No pertinent history Review of Systems ROS: Unable to Obtain - Patient responded no to every question asked. Physical Exam Vital Signs/Narrative: Vital Signs Temp Pulse Resp BP Pulse Ox 07/19/19 19:14 97.6 F L 55 L 21 H 145/75 H 94 Inital Vital Signs reviewed: Yes General: Well nourished, Well developed, No Acute Distress, - - Does not appear well. He appears older than age. Head: Normocephalic, Atraumatic. Negative for: Trauma, Tenderness Eyes: EOMI, - - Nipples are pinpoint. Squad gave Narcan with no improvement.. Negative for: Pale conjunctiva, Scleral icterus ENT: No rhinorrhea, TM's clear, - - Is no clinical findings of basilar skull fracture. Neck: Supple, Nontender, No lymphadenopathy, No JVD Cardiovascular: Regular rate, No murmurs, Normal S1, Normal S2, Bradycardia Respiratory: No distress, Chest nontender, - - There is a friction rub noted on the left, pleuritic. Negative for: CTA bilaterally Abdomen: Soft, Nontender, Nondistended, Normal bowel sounds, No masses Rectal: Deferred Back: Nontender, Normal Inspection. Negative for: CVA tenderness Skin: No rash, No Trauma, Pallor. Negative for: Cyanosis, Diaphoresis, Jaundice Neurological: Cranial nerves II-XII grossly intact, Normal Strength, Normal Sensation, Normal DTR - TR 1+ symmetric with no clonus. He withdraws when testing for Babinski sign.. Negative for: Alert, Oriented x3, Normal Gait Psychological: - - Unable to determine Diagnostic/Tx/Re-eval Impressions Brain CT 07/19/19 19:24 IMPRESSION: No CT evidence of acute infarct or hemorrhage. If there is clinical concern for hyperacute ischemia that is not evident by CT, MRI should be considered if possible. Electronically Signed: Mohsen Pulido MD at 19:58 EDT Tel , Service support , 07/19/19 19:24 Brain/Head without Contrast [CT] Stat 07/19/19 19:40 Chest 1 View (Portable) [RAD] Stat Laboratory Results 07/19/19 07/19/19 07/19/19 19:15 19:15 19:15 WBC 8.6 RBC 3.68 L Hgb 12.1 L Hct 36.8 L MCV 100.0 H MCH 32.9 H MCHC 32.9 RDW Std Deviation 50.8 H RDW Coeff of Kylie 13.7 Plt Count 150 MPV 9.7 Immature Gran % (Auto) 0.300 Neut % (Auto) 59.2 Lymph % (Auto) 27.3 [place] % (Auto) 9.7 Eos % (Auto) 2.7 Baso % (Auto) 0.8 Absolute Neuts (auto) 5.1 Absolute Lymphs (auto) 2.34 Nucleated RBC % 0 PT 15.6 H INR 1.3 APTT 31.9 Specimen Type Sample Site VBG pH VBG pO2 VBG O2 Sat (Calc) VBG O2 Content VBG Base Excess POC Mix VBG pCO2 Pt Tmp O2 Delivery Device Blood Gas Notified Whom Blood Gas Notified Time Sodium 139 Potassium 3.9 Chloride 109 H Carbon Dioxide 25.0 Anion Gap 5 BUN 46 H Creatinine 2.18 H Estim Creat Clear Calc 31.89 Est GFR (MDRD) Af Amer 39 L Est GFR (MDRD) Non-Af 32 L BUN/Creatinine Ratio 21.1 H Glucose 121 H Lactic Acid Calcium 8.7 Total Bilirubin 0.50 AST 17 ALT 19 Alkaline Phosphatase 75 Troponin I < 0.015 B-Natriuretic Peptide Total Protein 7.2 Albumin 3.2 Globulin 4.0 Albumin/Globulin Ratio 0.8 L Urine Color Urine Clarity Urine pH Ur Specific [place] Urine Protein Urine Glucose (UA) Urine Ketones Urine Occult Blood Urine Nitrite Urine Bilirubin Urine Urobilinogen Ur Leukocyte Esterase Urine RBC Urine WBC Ur Squamous Epith Cells Ur Transition Epith Cell Urine Bacteria Hyaline Casts Urine Mucus 07/19/19 07/19/19 07/19/19 19:15 19:15 19:30 WBC RBC Hgb Hct MCV MCH MCHC RDW Std Deviation RDW Coeff of Kylie Plt Count MPV Immature Gran % (Auto) Neut % (Auto) Lymph % (Auto) [place] % (Auto) Eos % (Auto) Baso % (Auto) Absolute Neuts (auto) Absolute Lymphs (auto) Nucleated RBC % PT INR APTT Specimen Type Sample Site VBG pH VBG pO2 VBG O2 Sat (Calc) VBG O2 Content VBG Base Excess POC Mix VBG pCO2 Pt Tmp O2 Delivery Device Blood Gas Notified Whom Blood Gas Notified Time Sodium Potassium Chloride Carbon Dioxide Anion Gap BUN Creatinine Estim Creat Clear Calc Est GFR (MDRD) Af Amer Est GFR (MDRD) Non-Af BUN/Creatinine Ratio Glucose Lactic Acid 1.2 Calcium Total Bilirubin AST ALT Alkaline Phosphatase Troponin I B-Natriuretic Peptide 53.0 Total Protein Albumin Globulin Albumin/Globulin Ratio Urine Color Yellow Urine Clarity Clear Urine pH 6.0 Ur Specific [place] 1.015 Urine Protein 100 H Urine Glucose (UA) Normal Urine Ketones Negative Urine Occult Blood 25 H Urine Nitrite Negative Urine Bilirubin Negative Urine Urobilinogen Normal Ur Leukocyte Esterase Negative Urine RBC 0-5 SEEN Urine WBC 0-5 SEEN Ur Squamous Epith Cells 0 SEEN Ur Transition Epith Cell 0-5 SEEN Urine Bacteria 0 SEEN Hyaline Casts 0-5 SEEN Urine Mucus 0 SEEN 07/19/19 20:09 WBC RBC Hgb Hct MCV MCH MCHC RDW Std Deviation RDW Coeff of Kylie Plt Count MPV Immature Gran % (Auto) Neut % (Auto) Lymph % (Auto) [place] % (Auto) Eos % (Auto) Baso % (Auto) Absolute Neuts (auto) Absolute Lymphs (auto) Nucleated RBC % PT INR APTT Specimen Type JASON Sample Site L Brachial VBG pH 7.29 L VBG pO2 26 VBG O2 Sat (Calc) 41 L VBG O2 Content 26 VBG Base Excess -2 L POC Mix VBG pCO2 Pt Tmp 51.2 H O2 Delivery Device Room Air Blood Gas Notified Whom ED MD Blood Gas Notified Time 1999 Sodium Potassium Chloride Carbon Dioxide Anion Gap BUN Creatinine Estim Creat Clear Calc Est GFR (MDRD) Af Amer Est GFR (MDRD) Non-Af BUN/Creatinine Ratio Glucose Lactic Acid Calcium Total Bilirubin AST ALT Alkaline Phosphatase Troponin I B-Natriuretic Peptide Total Protein Albumin Globulin Albumin/Globulin Ratio Urine Color Urine Clarity Urine pH Ur Specific [place] Urine Protein Urine Glucose (UA) Urine Ketones Urine Occult Blood Urine Nitrite Urine Bilirubin Urine Urobilinogen Ur Leukocyte Esterase Urine RBC Urine WBC Ur Squamous Epith Cells Ur Transition Epith Cell Urine Bacteria Hyaline Casts Urine Mucus Globin is approximately 1 to 2 g lower than prior labs. Creatinine is at baseline. BUN is slightly higher than prior. This would raise question for GI bleed. Venous blood gas reveals a acidosis. Troponin, BNP and lactate are normal. With acute change in mental status collapse with incontinence need to admit for further work-up to determine etiology. - Medical Decision Making With collapse incontinence need to evaluate for cardiac versus noncardiac etiology of syncope. Need to rule out GI bleed. Since patient is not hypoxic doubt pulmonary embolus. CT of the head was obtained to rule out intracranial process ischemic versus hemorrhagic versus other abnormality. CBC to assess white count and H&H. With prior history of KENNY basic metabolic panel was ordered. Since patient is not capable of standing Bravo was placed for accurate I's and O's and to prevent skin breakdown/irritation since he is incontinent. - Critical Care Time Critical care time (excluding procedures): 30-74 minutes - Critical care time 31 minutes, Discussing w/Patient &/or Family/Pipe Stem Repairer, Discussing w/Consultants, Arranging Admission or Transfer ED Disposition - Plan for ED Patient: Disposition: Acute Care Hospital [facility] Diagnosis: Altered mental status, Syncope and collapse, End stage renal disease Referrals: Edi Steven PA [Primary Care Provider] -
[2019-07-19 19:34] LABS: Bacteria 0 SEEN /hpf (None Seen); Mucous, Urine 0 SEEN /hpf (<or=2+); Squamous Epithelial Cells - UA 0 SEEN /hpf (0-5)
[2019-07-19 19:36] LABS: Color, Urine Yellow (Yellow); Glucose, Dipstick Normal (Normal); Ketone-Dipstick Negative (Negative); Leukocyte Esterase-Dipstick Negative /ul (Negative); Nitrite-Dipstick Negative (Negative); Occult Blood-Urine 25 /ul (Negative); Protein-Dipstick 100 mg/dl (Negative); Specific Gravity, Urine 1.015 (1.002-1.030); Urine Bilirubin Dipstick Negative (Negative); Urine Clarity Clear (Clear); Urine Urobilinogen Normal (Normal)
[2019-07-19 19:40] LABS: Absolute Lymphocyte Count 2.34 X10^3/uL (0.83-4.51); Absolute Neutrophil Count 5.1 X10^3/uL (2.0-7.7); Basophil# 0.07 X10^3/uL; Basophil% 0.8 % (0-1); Eosinophil# 0.23 X10^3/uL; Eosinophils% 2.7 % (0-5); Hematocrit 36.8 % (40-54); Hemoglobin 12.1 g/dL (13.0-16.5); Lymphocyte # 2.34 X10^3/ul (4.0); Lymphocyte % 27.3 % (19-41); Mean Corp Hgb Conc 32.9 g/dL (32-36); Mean Corpuscular Hgb 32.9 pg (27.0-32.0); Mean Platelet Vol. 9.7 fl (6.2-12.0); Monocyte# 0.83 X10^3/uL; Monocyte% 9.7 % (0-10); NRBC Flagged by Analyzer 0 % (0-5); Neutrophil # 5.08 X10^3/uL (2.7-7.7); Neutrophil % 59.2 % (47-70); Platelet Count 150 K/mm3 (150-450); RBC Distribution Width CV 13.7 % (11.6-14.6); RBC Distribution Width SD 50.8 fl (35.1-43.9); Red Blood Count 3.68 M/mm3 (4.6-6.2); White Blood Count 8.6 K/mm3 (4.4-11.0)
--- NOTE | 2019-07-19 19:40 | RAD_ITS ---
STUDY: X-RAY CHEST REASON FOR EXAM: Male, 69 years old. SYNCOPAL EPISODE, SHORTNESS OF BREATH TECHNIQUE: Single frontal view of the chest. COMPARISON: None. FINDINGS: Patchy alveolar disease is suspected in both lung bases. Mild bibasilar pneumonia cannot be excluded. Left basilar atelectasis. There is no demonstrated pleural abnormality. Normal size heart. Normal mediastinum and estefani. Normal visualized pulmonary arteries. There is atherosclerotic tortuosity of the aortic arch and descending thoracic aorta. Normal visualized thoracic spine. Normal visualized ribs, clavicles, and shoulders. There is no demonstrated abnormality of the visualized soft tissue structures of the upper abdomen. RAD/Chest 1 View (Portable) IMPRESSION: Patchy alveolar disease is suspected in both lung bases. Mild bibasilar pneumonia cannot be excluded. Left basilar atelectasis. Electronically Signed: Mohsen Pulido MD at 20:51 EDT Tel , Service support ,
[2019-07-19 19:44] LABS: International Normalized Ratio 1.3; Prothrombin Time (Protime)PT. 15.6 SECONDS (11.7-14.9)
[2019-07-19 19:45] LABS: Partial Thromboplast Time 31.9 Seconds (24.1-36.2)
[2019-07-19 19:48] LABS: Hyaline Cast 0-5 SEEN /lpf (0-5)
[2019-07-19 19:52] LABS: Red Blood Cells-Urine 0-5 SEEN /hpf (0-5)
[2019-07-19 19:52] LABS: ALB/GLOB Ratio 0.8 RATIO (0.9-2.4); AST(SGOT) 17 U/L (15-37); Alanine Aminotransfer ALT/SGPT 19 U/L (16-61); Albumin, Serum 3.2 g/dL (3.2-5.0); Alkaline Phosphatase 75 U/L (45-117); Anion Gap 5 (5-15); BUN 46 mg/dL (7-18); BUN/Creat Ratio 21.1 RATIO (10-20); Calcium,Total 8.7 mg/dL (8.5-10.1); Chloride 109 mmol/L (98-107); Creatinine, Serum 2.18 mg/dL (0.70-1.30); EST Glomerular Filtration Rate 32 mL/min (>60); Est Glom Filt Rate - Afr Amer 39 mL/min (>60); Estimated Creatinine Clearance 31.89 ml/min; Glucose 121 mg/dL (74-106); Lactic Acid 1.2 mmol/L (0.4-1.9); Potassium 3.9 mmol/L (3.5-5.1); Protein, Total 7.2 g/dL (6.4-8.2); Sodium Level 139 mmol/L (136-145)
[2019-07-19 19:53] LABS: Transitional Epithelial - Ur 0-5 SEEN /hpf (0-5); White Blood Cells 0-5 SEEN /hpf (0-5)
[2019-07-19] MEDS: Ondansetron 4 MG/2 ML Vial IV (19:56)
[2019-07-19 20:16] LABS: Blood Gas Specimen Type VEN; O2 Delivery Device Room Air; SITE L Brachial; Time Given 2000; VBG BASE EXCESS -2 mmol/L (-1.0-3.5); VBG Bicarbonate 25 mmol/L (22-26); VBG Oxygen Content 26 mmol/L (23-33); VBG PO2 26 mmHg (25-40); VBG SO2 41 % (50-70); VBG pCO2 51.2 mmHg (41-51); VBG pH 7.29 (7.32-7.42)
--- NOTE | 2019-07-19 20:30 | HP.PCM_ITS ---
Problem List (1) Syncope Status: Acute History of Present Illness Date of Admission: 07/19/19 Chief Complaint: syncope The patient is a 69 year old M with significant history of hypertension; COPD who presented to emergency department with a syncopal episode. Reportedly he was briefly unresponsive. Patient was brought to emergency department by the paramedics. No CPR was done. At the time of evaluation patient did not recall event leading to Hospit alization. Past Medical History Past Medical History (Chronic Problems): Chronic Problems (Last Updated 07/20/19 @ 00:[address] Suresh Shetty MD) HTN (hypertension) (Chronic) Medical History: Medical History (Last Updated 07/20/19 @ 00:[address] Suresh Shetty MD) HTN (hypertension) (Chronic) I10 Allergies tiotropium [From Spiriva with HandiHaler] Allergy (Verified 07/19/19 19:37) Swelling Home Medications: Ambulatory Orders Medication Instructions Recorded Albuterol Inhaler [Ventolin Hfa] 2 puff INHALATION Q4H PRN PRN 01/22/19 Amlodipine [Norvasc] 5 mg PO DAILY 01/22/19 Aspirin E.C. [Ecotrin] 81 mg PO DAILY@0800 01/22/19 Atorvastatin Calcium [Lipitor] 20 mg PO QHS 01/22/19 Budesonide/Formoterol Fumarate 2 puff INHALATION BID 01/22/19 [Symbicort 80-4.5 Mcg Inhaler] Carvedilol 25 mg PO BID 01/22/19 Cholecalciferol (Vitamin D3) 1,000 unit PO DAILY 01/22/19 [Vitamin D3] Clopidogrel Bisulfate [Clopidogrel] 75 mg PO DAILY 01/22/19 Duloxetine Hcl [Cymbalta] 60 mg PO DAILY 01/22/19 Famotidine [Pepcid] 20 mg PO DAILY 01/22/19 Loperamide [Imodium] 4 mg PO Q4H PRN 01/22/19 Losartan Potassium 50 mg PO DAILY 01/22/19 Nitroglycerin (INPATIENT USE) 0.4 mg SUBLINGUAL PRN PRN 01/22/19 [Nitrostat] Surgical History: - - Patient denies any surgical history. Psychiatric History: Depression Lives: Spouse/ Significant Other, With Family Smoking Status: Current every day smoker Alcohol: None Drugs: None - *Family History Maternal History Items: - - Patient denies knowledge of maternal medical history. Paternal History Items: Heart Disease Review of Systems Constitutional: Denies: Chills, Fever, Weight Change HEENT: Denies: Head Aches, Sinus Congestion, Sinus Drainage Cardiovascular: Reports: Syncope. Denies: Chest Pain, Palpitations Respiratory: Denies: Cough, Shortness of breath at rest, Sputum production Gastrointestinal: Denies: Abdominal Pain, Nausea, Vomiting Genitourinary: Denies: Dysuria Musculoskeletal: Denies: Joint Pain, Joint Tenderness Skin: Denies: Rash, Wounds Neurological: Denies: Numbness, Tingling, Focal weakness Psychiatric: Denies: Anxiety, Depression, Homicidal Ideations, Suicidal Ideations Hematologic/ Lymphatic: Denies: Easy Bruising, Easy Bleeding VTE Information - Inpt Only VTE Present on Admission: No VTE Mechan Device Prophylaxis: None VTE Pharm Prophylaxis ordered?: Yes Patient Problems: Active and Suspected Problems (Last Updated 07/20/19 @ 00:[address] Suresh Shetty MD) Altered mental status (Acute) Syncope and collapse (Acute) End stage renal disease (Acute) Syncope (Acute) - Physical Exam Vitals/I&O's: Vital Signs Temp Pulse Resp BP Pulse Ox 97.6 F L 55 L 21 H 145/75 H 94 07/19/19 19:20 07/19/19 19:20 07/19/19 19:20 07/19/19 19:20 07/19/19 19:20 Oxygen Delivery Method Room Air Weight: 71.5 kg Body Mass Index (BMI) 21.4 General: Alert, Cooperative, - - The patient's knows the city and the state. He knows that he is in the hospital. He does not know the year or the month. HEENT: Atraumatic, EOMI, Normocephalic Neck: Supple, Trachea Midline Lungs: Clear to auscultation, Normal air movement Cardiovascular: Normal S1, Normal S2, No murmurs, Bradycardic Abdomen: Bowel Sounds Present, Soft, Non Tender Extremities: No edema, Capillary Refill Less than 3 Seconds Skin: No rashes, No breakdown Musculoskeletal: No Tenderness to Palpation of Joints or Extremities Neurological: Cranial nerves II-XII grossly intact Psych/Mental Status: Normal Affect, Appropriate Laboratory Results 07/19/19 19:15: WBC 8.6, RBC 3.68 L, Hgb 12.1 L, Hct 36.8 L, MCV 100.0 H, MCH 32.9 H, MCHC 32.9, RDW Std Deviation 50.8 H, RDW Coeff of Kylie 13.7, Plt Count 150, MPV 9.7, Immature Gran % (Auto) 0.300, Neut % (Auto) 59.2, Lymph % (Auto) 2 7.3, [place] % (Auto) 9.7, Eos % (Auto) 2.7, Baso % (Auto) 0.8, Absolute Neuts (auto) 5.1, Absolute Lymphs (auto) 2.34, Nucleated RBC % 0 07/19/19 19:15: PT 15.6 H, INR 1.3, APTT 31.9 07/19/19 19:15: Sodium 139, Potassium 3.9, Chloride 109 H, Carbon Dioxide 25.0, Anion Gap 5, BUN 46 H, Creatinine 2.18 H, Estim Creat Clear Calc 31.89, Est GFR (MDRD) Af Amer 39 L, Est GFR (MDRD) Non-Af 32 L, BUN/Creatinine Ratio 21.1 H, Glucose 121 H, Calcium 8.7, Total Bilirubin 0.50, AST 17, ALT 19, Alkaline Phosphatase 75, Troponin I < 0.015, Total Protein 7.2, Albumin 3.2, Globulin 4.0, Albumin/Globulin Ratio 0.8 L 07/19/19 19:15: Lactic Acid 1.2 07/19/19 19:15: B-Natriuretic Peptide 53.0 07/19/19 19:30: Urine Color Yellow, Urine Clarity Clear, Urine pH 6.0, Ur Specific [place] 1.015, Urine Protein 100 H, Urine Glucose (UA) Normal, Urine Ketones Negative, Urine Occult Blood 25 H, Urine Nitrite Negative, Urine Bilirubin Negative, Urine Urobilinogen Normal, Ur Leukocyte Esterase Negative, Urine RBC 0-5 SEEN, Urine WBC 0-5 SEEN, Ur Squamous Epith Cells 0 SEEN, Ur Transition Epith Cell 0-5 SEEN, Urine Bacteria 0 SEEN, Hyaline Casts 0-5 SEEN, Urine Mucus 0 SEEN 07/19/19 20:09: Specimen Type JASON, Sample Site L Brachial, VBG pH 7.29 L, VBG pO2 26, VBG O2 Sat (Calc) 41 L, VBG O2 Content 26, VBG Base Excess -2 L, POC Mix VBG pCO2 Pt Tmp 51.2 H, O2 Delivery Device Room Air, Blood Gas Notified Whom ED MD, Blood Gas Notified Time 1999 Assessment/Plan All Active Problems (Last Updated 07/20/19 @ 00:[address] Suresh Shetty MD) Colitis (Resolved) Bradycardia with 41-50 beats per minute (Acute) Altered mental status (Acute) Syncope and collapse (Acute) End stage renal disease (Acute) Syncope (Acute) The patient is a 69 year old M with significant history of hypertension; COPD who presented to emergency department with a syncopal episode Syncope EKG showed sinus bradycardia. Get orthostatic vitals. Get an echocardiogram Watch patient overnight on the telemetry. IV fluids. Teleneurologist consult KENNY on CKD stage III His creatinine on presentation was 2.18. His creatinine in January 2019 was 1.57, 1.63 and 1.93. Avoid nephrotoxins. As such will hold home losartan. Gentle IV hydration Trend BMP. Hypertension Resume home antihypertensive medication. Avoid nephrotoxins. COPD On home ICS?LABA continued. Albuterol as needed. DVT Prophylaxis Subcutaneous Lovenox. OBSV E&M: [id number] Initial observation care L3
--- NOTE | 2019-07-19 20:54 | ED.RN ---
yahir : [id number]
[2019-07-19 21:02] VITALS: BP 130/77; PULSE 62; RESP 23; TEMP 36.6; O2SAT 92
--- NOTE | 2019-07-19 21:19 | ED.RN ---
daughter sebas was notified per pt request of getting admitted
[2019-07-19 21:38] VITALS: BMI 25.1; BMI 25.2
--- NOTE | 2019-07-19 21:38 | ECHOD_ITS ---
Reason For Study: SYNCOPE/NEAR SYNCOPE Procedure This was a 2D Doppler, Color Flow transthoracic echocardiogram. Exam performed portable in patient room. Left Ventricle Mild concentric left ventricular hypertrophy. The estimated ejection fraction is 65 %. Stage 1 diastolic dysfunction. No regional wall motion abnormalities noted. Right Ventricle Normal size and thickness. Normal systolic function. Atria Normal left atrium. Normal right atrium. Normal atrial septum. Mitral Valve Mild diffuse mitral valve thickening. Mild mitral annular calcification extending into the posterior leaflet. Trivial mitral valve insufficiency. Tricuspid Valve Normal tricuspid valve. Trivial tricuspid valve insufficiency. Right ventricular systolic pressure estimated to be 34 mmHg. Aortic Valve Trisinus/trileaflet aortic valve. Mild diffuse aortic valve thickening. There is no aortic stenosis. Trivial aortic valve insufficiency. Pulmonic Valve Normal pulmonic valve. Great Vessels Normal aortic root. Normal arch. Normal inferior vena cava. Inferior vena cava collapse with sniff. Pericardium/Pleural No pericardial effusion. MMode/2D Measurements & Calculations LVIDd: 4.7 cm IVSd: 1.2 cm Ao root diam: 3.6 cm LVIDs: 3.0 cm LVPWd: 1.2 cm RVDd: 3.5 cm FS: 35.6 % LAV(MOD-bp): 58.8 ml LA A4 area: 19.3 cm2 LA dimension(2D): 3.8 cm LAV(MOD-bp) Indexed: 31.1 ml/m2 LAV(MOD-sp2): 58.4 ml LAV(MOD-sp4): 58.0 ml RA A4 area: 13.4 cm2 Time Measurements MV dec time: 0.19 sec Doppler Measurements & Calculations MV E max edison: 64.2 cm/sec Lat Peak E' Edison: 8.5 cm/sec Med Peak E' Edison: 7.5 cm/sec MV A max edison: 79.5 cm/sec E/E' lat: 7.6 E/E' med: 8.6 MV E/A: 0.81 Ao V2 max: 135.7 cm/sec AI max edison: 398.9 cm/sec LV V1 max: 87.7 cm/sec Ao max P.4 mmHg AI max P.8 mmHg LV V1 max P.1 mmHg Ao V2 mean: 99.8 cm/sec AI dec slope: 222.7 cm/sec2 LV V1 mean P.8 mmHg Ao mean P.3 mmHg AI P1/2t: 524.7 msec LV V1 mean: 64.0 cm/sec Ao V2 VTI: 27.5 cm LV V1 VTI: 22.8 cm PA V2 max: 96.9 cm/sec TR max edison: 270.0 cm/sec TR max P.2 mmHg Interpretation Summary Mild concentric left ventricular hypertrophy. The estimated ejection fraction is 65 %. Stage 1 diastolic dysfunction. Trivial mitral valve insufficiency. Trivial tricuspid valve insufficiency. Right ventricular systolic pressure estimated to be 34 mmHg. Trivial aortic valve insufficiency. There is no aortic stenosis. There is no comparison study available. Ordering Physician: Suresh Shetty Referring Physician: Scott Steven Performed By: Mala Villegas RDCS, RVT
[2019-07-19 21:40] VITALS: BP 146/75; PULSE 62; RESP 18; TEMP 36.4; O2SAT 94
[2019-07-19 22:03] VITALS: PULSE 63
[2019-07-19] MEDS: 0.9% Normal Saline 1,000 ML 100 ML IV (22:06)
[2019-07-20] VITALS (10 sets, daily range): BP systolic 104–148; BP diastolic 53–81; PULSE 61–93; RESP 16–20; TEMP 36.4–37.1; O2SAT 85–95
[2019-07-20 01:07] LABS: Prolactin 36.8 ng/mL
[2019-07-20] MEDS: 0.9% Saline Lock 10 ML Syringe IV ×3 (05:12→12:45)
[2019-07-20] MEDS: Enoxaparin 30 MG/0.3 ML Syringe SC (05:12)
[2019-07-20 06:03] LABS: Absolute Lymphocyte Count 1.61 X10^3/uL (0.83-4.51); Absolute Neutrophil Count 4.5 X10^3/uL (2.0-7.7); Basophil# 0.04 X10^3/uL; Basophil% 0.6 % (0-1); Eosinophil# 0.09 X10^3/uL; Eosinophils% 1.3 % (0-5); Hematocrit 37.1 % (40-54); Hemoglobin 12.3 g/dL (13.0-16.5); Lymphocyte # 1.61 X10^3/ul (4.0); Lymphocyte % 23.5 % (19-41); Mean Corp Hgb Conc 33.2 g/dL (32-36); Mean Corpuscular Volume 99.5 fL (80-94); Mean Platelet Vol. 9.4 fl (6.2-12.0); Monocyte# 0.61 X10^3/uL; Monocyte% 8.9 % (0-10); NRBC Flagged by Analyzer 0 % (0-5); Neutrophil # 4.47 X10^3/uL (2.7-7.7); Neutrophil % 65.3 % (47-70); Platelet Count 149 K/mm3 (150-450); RBC Distribution Width CV 13.5 % (11.6-14.6); Red Blood Count 3.73 M/mm3 (4.6-6.2); White Blood Count 6.9 K/mm3 (4.4-11.0)
[2019-07-20 06:23] LABS: Anion Gap 9 (5-15); BUN 45 mg/dL (7-18); BUN/Creat Ratio 24.3 RATIO (10-20); Calcium,Total 8.7 mg/dL (8.5-10.1); Chloride 107 mmol/L (98-107); Creatinine, Serum 1.85 mg/dL (0.70-1.30); EST Glomerular Filtration Rate 39 mL/min (>60); Est Glom Filt Rate - Afr Amer 47 mL/min (>60); Estimated Creatinine Clearance 32.32 ml/min; Glucose 169 mg/dL (74-106); Sodium Level 137 mmol/L (136-145)
[2019-07-20] MEDS: Albuterol 2.5 MG/3 ML VIAL.NEB. INHALATION ×2 (07:05→18:24)
[2019-07-20] MEDS: Budesonide Respules 0.5 MG/2 ML AMPUL.NEB. INHALATION (07:05)
[2019-07-20] MEDS: 0.9% Normal Saline 1,000 ML 100 ML IV ×2 (08:13→19:40)
--- NOTE | 2019-07-20 08:55 | MRI_ITS ---
STUDY: MRI BRAIN WITHOUT CONTRAST REASON FOR EXAM: Male, 69 years old. SYNCOPE, ALTERED MENTAL STATUS TECHNIQUE: Standardized multiplanar fat and water weighted pulse sequences were obtained. COMPARISON: [address] of the head FINDINGS: There is moderate cerebral atrophy with widening of the extra-axial spaces and ventricular dilatation. There are multiple white matter hyperintensities, distributed throughout the deep white matter tracts of the cerebral hemispheres, consistent with moderate chronic white matter ischemic changes. There is no extra-axial fluid accumulation. Normal flow voids within the major intracranial circulation suggesting patency by spin echo criteria. Normal sella turcica, pituitary gland, infundibular stalk, optic chiasm and hypothalamus. Normal tectal plate and pineal gland. Normal midbrain, miah and medulla. Normal cerebellum. Normal basal cisterns. MRI/Brain without Contrast IMPRESSION: No acute intracranial abnormality. Moderate chronic microvascular ischemic changes Electronically Signed: Darlene Thomson MD at 14:38 EDT Tel , Service support ,
[2019-07-20] MEDS: Aspirin E.C. 81 MG Tablet PO (09:31)
[2019-07-20] MEDS: Carvedilol 25 MG Tablet PO ×2 (09:31→22:35)
[2019-07-20] MEDS: DULoxetine Hcl 60 MG Capsule PO (09:31)
[2019-07-20] MEDS: Famotidine 20 MG Tablet PO (09:32)
[2019-07-20] MEDS: Clopidogrel Bisulfate 75 MG Tablet PO (09:32)
[2019-07-20] MEDS: amLODIPine 5 MG Tablet PO (09:32)
--- NOTE | 2019-07-20 12:05 | PN_ITS ---
<Neris Corral - Last Filed: 07/20/19 12:18> Patient Problems: Active and Suspected Problems (Last Updated 07/20/19 @ 00:[address] Suresh Shetty MD) Altered mental status (Acute) Syncope and collapse (Acute) End stage renal disease (Acute) Syncope (Acute) Subjective: Patient seen and examined. No further syncope, lightheadedness. Denies other complaints. - Physical Exam Vitals/I&O's: Vital Signs Temp Pulse Resp BP Pulse Ox 97.5 F L 80 20 H 107/53 L 95 07/20/19 09:30 07/20/19 09:30 07/20/19 09:30 07/20/19 09:30 07/20/19 09:30 Oxygen Flow Rate (L/min) 2 Oxygen Delivery Method Nasal Cannula Weight: 151 lb 3.794 oz Body Mass Index (BMI) 25.1 Orthostatic Vital Signs Start: 07/20/19 03:47 Freq: q24h Status: Active Protocol: Activity Type Activity Date Activity User E-Sign Co-Sign Detail Recorded Client Recorded Date Recorded By Document 07/20/19 03:40 MAB [id number] 07/20/19 04:11 MAB 07/20/19 03:40 Orthostatic Vitals Standing -Blood Pressure (90/60-120/80) 107/71 -Extremity Use Right Arm -Pulse Rate (60-100) 93 Sitting -Blood Pressure (90/60-120/80) 104/72 -Extremity Use Right Arm -Pulse Rate (60-100) 90 Lying -Blood Pressure (90/60-120/80) 114/81 H -Extremity Use Right Arm -Pulse Rate (60-100) 82 Intake and Output for Last 24 Hours 07/18/19 07/19/19 07/20/19 23:59 23:59 23:59 Intake Total 1480 / 1480 Output Total 350 / 350 200 / 200 Balance -350 / -350 1280 / 1280 General: Alert, Oriented x3, Cooperative HEENT: Atraumatic, PERRLA, EOMI, Normocephalic Neck: Supple, No JVD, Negative Carotid Bruits Lungs: Clear to auscultation, Normal air movement Cardiovascular: Regular rate, Regular Rhythm, Normal S1, Normal S2, No murmurs Abdomen: Bowel Sounds Present, Soft, Non Tender, Non-Distended Extremities: No clubbing, No cyanosis, No edema, Capillary Refill Less than 3 Seconds Skin: No rashes, No breakdown Musculoskeletal: No Tenderness to Palpation of Joints or Extremities Neurological: Cranial nerves II-XII grossly intact, Neuro grossly intact Psych/Mental Status: Normal Affect, Appropriate Laboratory Results 07/19/19 19:15: WBC 8.6, RBC 3.68 L, Hgb 12.1 L, Hct 36.8 L, MCV 100.0 H, MCH 32.9 H, MCHC 32.9, RDW Std Deviation 50.8 H, RDW Coeff of Kylie 13.7, Plt Count 150, MPV 9.7, Immature Gran % (Auto) 0.300, Neut % (Auto) 59.2, Lymph % (Auto) 27.3, [place] % (Auto) 9.7, Eos % (Auto) 2.7, Baso % (Auto) 0.8, Absolute Neuts (auto) 5.1, Absolute Lymphs (auto) 2.34, Nucleated RBC % 0 07/19/19 19:15: PT 15.6 H, INR 1.3, APTT 31.9 07/19/19 19:15: Sodium 139, Potassium 3.9, Chloride 109 H, Carbon Dioxide 25.0, Anion Gap 5, BUN 46 H, Creatinine 2.18 H, Estim Creat Clear Calc 31.89, Est GFR (MDRD) Af Amer 39 L, Est GFR (MDRD) Non-Af 32 L, BUN/Creatinine Ratio 21.1 H, Glucose 121 H, Calcium 8.7, Total Bilirubin 0.50, AST 17, ALT 19, Alkaline Phosphatase 75, Troponin I < 0.015, Total Protein 7.2, Albumin 3.2, Globulin 4.0, Albumin/Globulin Ratio 0.8 L 07/19/19 19:15: Lactic Acid 1.2 07/19/19 19:15: B-Natriuretic Peptide 53.0 07/19/19 19:15: Prolactin 36.8 07/19/19 19:30: Urine Color Yellow, Urine Clarity Clear, Urine pH 6.0, Ur Specific [place] 1.015, Urine Protein 100 H, Urine Glucose (UA) Normal, Urine Ketones Negative, Urine Occult Blood 25 H, Urine Nitrite Negative, Urine Bilirubin Negative, Urine Urobilinogen Normal, Ur Leukocyte Esterase Negative, Urine RBC 0-5 SEEN, Urine WBC 0-5 SEEN, Ur Squamous Epith Cells 0 SEEN, Ur Transition Epith Cell 0-5 SEEN, Urine Bacteria 0 SEEN, Hyaline Casts 0-5 SEEN, Urine Mucus 0 SEEN 07/19/19 20:09: Specimen Type JASON, Sample Site L Brachial, VBG pH 7.29 L, VBG pO2 26, VBG O2 Sat (Calc) 41 L, VBG O2 Content 26, VBG Base Excess -2 L, POC Mix VBG pCO2 Pt Tmp 51.2 H, O2 Delivery Device Room Air, Blood Gas Notified Whom ED MD, Blood Gas Notified Time 199907/20/19 05:30: WBC 6.9, RBC 3.73 L, Hgb 12.3 L, Hct 37.1 L, MCV 99.5 H, MCH 33.0 H, MCHC 33.2, RDW Std Deviation 49.0 H, RDW Coeff of Kylie 13.5, Plt Count 149 L, MPV 9.4, Immature Gran % (Auto) 0.400, Neut % (Auto) 65.3, Lymph % (Auto) 23.5, [place] % (Auto) 8.9, Eos % (Auto) 1.3, Baso % (Auto) 0.6, Absolute Neuts (auto) 4.5, Absolute Lymphs (auto) 1.61, Nucleated RBC % 0 07/20/19 05:30: Sodium 137, Potassium 4.0, Chloride 107, Carbon Dioxide 21.0, Anion Gap 9, BUN 45 H, Creatinine 1.85 H, Estim Creat Clear Calc 32.32, Est GFR (MDRD) Af Amer 47 L, Est GFR (MDRD) Non-Af 39 L, BUN/Creatinine Ratio 24.3 H, Glucose 169 H, Calcium 8.7 Current Medications Albuterol Sulfate (Ventolin Aerosols) 2.5 mg INHALATION Q2H PRN PRN PRN Reason: sob/wheezing Albuterol Sulfate (Ventolin Aerosols) 2.5 mg INHALATION Q6HWA.RT [facility] Last Admin: 07/20/19 07:05 Dose: 2.5 mg Documented by: Amlodipine Besylate (Norvasc) 5 mg PO DAILY [facility] Last Admin: 07/20/19 09:32 Dose: 5 mg Documented by: Aspirin (Ecotrin) 81 mg PO DAILY@0800 [facility] Last Admin: 07/20/19 09:31 Dose: 81 mg Documented by: Atorvastatin Calcium (Lipitor) 20 mg PO QHS [facility] Budesonide (Pulmicort Aerosol) 0.5 mg INHALATION Q12H.RT [facility] Last Admin: 07/20/19 07:05 Dose: 0.5 mg Documented by: Carvedilol (Coreg) 25 mg PO BID [facility] Last Admin: 07/20/19 09:31 Dose: 25 mg Documented by: Cholecalciferol (Vitamin D (25mcg)) 1,000 unit PO DAILY [facility] Last Admin: 07/20/19 09:31 Dose: 1,000 unit Documented by: Clopidogrel Bisulfate (Plavix) 75 mg PO DAILY [facility] Last Admin: 07/20/19 09:32 Dose: 75 mg Documented by: Dextrose (D50w Syringe) 0 gm IV X1 PRN; Protocol PRN Reason: Hypoglycemia Duloxetine HCl (Cymbalta) 60 mg PO DAILY [facility] Last Admin: 07/20/19 09:31 Dose: 60 mg Documented by: Enoxaparin Sodium (Lovenox) 30 mg SC DAILY@0600 [facility] Last Admin: 07/20/19 05:12 Dose: 30 mg Documented by: Famotidine (Pepcid) 20 mg PO DAILY [facility] Last Admin: 07/20/19 09:32 Dose: 20 mg Documented by: Glucagon () 1 mg IM .X1 PRN PRN Reason: Hypoglycemia Sodium Chloride () 1,000 mls @ 100 mls/hr IV .Q10H [facility] Last Admin: 07/20/19 08:13 Dose: 100 mls/hr Documented by: Sodium Chloride () 250 mls @ 15 mls/hr IV .[id number] PRN PRN Reason: Saline Flush Sodium Chloride () 250 mls @ 15 mls/hr IV .[id number] PRN PRN Reason: Additional IVPB Infusion Ondansetron HCl (Zofran) 4 mg IV Q8H PRN PRN PRN Reason: NAUSEA/VOMITING Sodium Chloride () 10 - 40 ml IV UD PRN PRN Reason: SALINE FLUSH Last Admin: 07/20/19 09:36 Dose: 10 ml Documented by: Medical Necessity - Tobacco Use Smoking Status: Current every day smoker Tobacco Use: Cigarettes Assessment/Plan All Active Problems (Last Updated 07/20/19 @ 00:[address] Suresh Shetty MD) Colitis (Resolved) Bradycardia with 41-50 beats per minute (Acute) Altered mental status (Acute) Syncope and collapse (Acute) End stage renal disease (Acute) Syncope (Acute) 1. Syncope-unclear etiology. Orthostatic vitals negative. Patient dehydrated on admission. Neurology consult obtained, recommended EEG, MRI of brain. EEG unremarkable. MRI of brain pending. Echocardiogram pending. Troponin negative. 2. CAD with history of stents x2-continue aspirin, statin, Plavix, carvedilol, losartan. Patient denies chest pain. 3. Acute kidney injury on chronic kidney disease stage III-improved following hydration. Trend BMP. 4. Chronic COPD-no exacerbation. As needed albuterol aerosol. 5. Hypertension-stable, continue amlodipine, carvedilol, losartan regimen. 6. Tobacco dependence-encouraged cessation. 7. Depression-continue home Cymbalta regimen. DVT prophylaxis-Lovenox subcu This patient was seen by KRISTAN Champagne under the supervision of Dr. Schuster. <Yvon Schuster F - Last Filed: 07/20/19 12:46> - Physical Exam Vitals/I&O's: Vital Signs Temp Pulse Resp BP Pulse Ox 97.5 F L 80 20 H 107/53 L 95 07/20/19 09:30 07/20/19 09:30 07/20/19 09:30 07/20/19 09:30 07/20/19 09:30 Oxygen Flow Rate (L/min) 2 Oxygen Delivery Method Nasal Cannula Weight: 151 lb 3.794 oz Body Mass Index (BMI) 25.1 Orthostatic Vital Signs Start: 07/20/19 03:47 Freq: q24h Status: Active Protocol: Activity Type Activity Date Activity User E-Sign Co-Sign Detail Recorded Client Recorded Date Recorded By Document 07/20/19 03:40 MAB [id number] 07/20/19 04:11 MAB 07/20/19 03:40 Orthostatic Vitals Standing -Blood Pressure (90/60-120/80) 107/71 -Extremity Use Right Arm -Pulse Rate (60-100) 93 Sitting -Blood Pressure (90/60-120/80) 104/72 -Extremity Use Right Arm -Pulse Rate (60-100) 90 Lying -Blood Pressure (90/60-120/80) 114/81 H -Extremity Use Right Arm -Pulse Rate (60-100) 82 Intake and Output for Last 24 Hours 07/18/19 07/19/19 07/20/19 23:59 23:59 23:59 Intake Total 1480 / 1480 Output Total 350 / 350 200 / 200 Balance -350 / -350 1280 / 1280 Laboratory Results 07/19/19 19:15: WBC 8.6, RBC 3.68 L, Hgb 12.1 L, Hct 36.8 L, MCV 100.0 H, MCH 32.9 H, MCHC 32.9, RDW Std Deviation 50.8 H, RDW Coeff of Kylie 13.7, Plt Count 150, MPV 9.7, Immature Gran % (Auto) 0.300, Neut % (Auto) 59.2, Lymph % (Auto) 27.3, [place] % (Auto) 9.7, Eos % (Auto) 2.7, Baso % (Auto) 0.8, Absolute Neuts (auto) 5.1, Absolute Lymphs (auto) 2.34, Nucleated RBC % 0 07/19/19 19:15: PT 15.6 H, INR 1.3, APTT 31.9 07/19/19 19:15: Sodium 139, Potassium 3.9, Chloride 109 H, Carbon Dioxide 25.0, Anion Gap 5, BUN 46 H, Creatinine 2.18 H, Estim Creat Clear Calc 31.89, Est GFR (MDRD) Af Amer 39 L, Est GFR (MDRD) Non-Af 32 L, BUN/Creatinine Ratio 21.1 H, Glucose 121 H, Calcium 8.7, Total Bilirubin 0.50, AST 17, ALT 19, Alkaline Phosphatase 75, Troponin I < 0.015, Total Protein 7.2, Albumin 3.2, Globulin 4.0, Albumin/Globulin Ratio 0.8 L 07/19/19 19:15: Lactic Acid 1.2 07/19/19 19:15: B-Natriuretic Peptide 53.0 07/19/19 19:15: Prolactin 36.8 07/19/19 19:30: Urine Color Yellow, Urine Clarity Clear, Urine pH 6.0, Ur Specific [place] 1.015, Urine Protein 100 H, Urine Glucose (UA) Normal, Urine Ketones Negative, Urine Occult Blood 25 H, Urine Nitrite Negative, Urine Bilirubin Negative, Urine Urobilinogen Normal, Ur Leukocyte Esterase Negative, Urine RBC 0-5 SEEN, Urine WBC 0-5 SEEN, Ur Squamous Epith Cells 0 SEEN, Ur Transition Epith Cell 0-5 SEEN, Urine Bacteria 0 SEEN, Hyaline Casts 0-5 SEEN, Urine Mucus 0 SEEN 07/19/19 20:09: Specimen Type JASON, Sample Site L Brachial, VBG pH 7.29 L, VBG pO2 26, VBG O2 Sat (Calc) 41 L, VBG O2 Content 26, VBG Base Excess -2 L, POC Mix VBG pCO2 Pt Tmp 51.2 H, O2 Delivery Device Room Air, Blood Gas Notified Whom ED , Blood Gas Notified Time 199907/20/19 05:30: WBC 6.9, RBC 3.73 L, Hgb 12.3 L, Hct 37.1 L, MCV 99.5 H, MCH 33.0 H, MCHC 33.2, RDW Std Deviation 49.0 H, RDW Coeff of Kylie 13.5, Plt Count 149 L, MPV 9.4, Immature Gran % (Auto) 0.400, Neut % (Auto) 65.3, Lymph % (Auto) 23.5, [place] % (Auto) 8.9, Eos % (Auto) 1.3, Baso % (Auto) 0.6, Absolute Neuts (auto) 4.5, Absolute Lymphs (auto) 1.61, Nucleated RBC % 0 07/20/19 05:30: Sodium 137, Potassium 4.0, Chloride 107, Carbon Dioxide 21.0, Anion Gap 9, BUN 45 H, Creatinine 1.85 H, Estim Creat Clear Calc 32.32, Est GFR (MDRD) Af Amer 47 L, Est GFR (MDRD) Non-Af 39 L, BUN/Creatinine Ratio 24.3 H, Glucose 169 H, Calcium 8.7 Current Medications Albuterol Sulfate (Ventolin Aerosols) 2.5 mg INHALATION Q2H PRN PRN PRN Reason: sob/wheezing Albuterol Sulfate (Ventolin Aerosols) 2.5 mg INHALATION Q6HWA.RT [facility] Last Admin: 07/20/19 07:05 Dose: 2.5 mg Documented by: Amlodipine Besylate (Norvasc) 5 mg PO DAILY [facility] Last Admin: 07/20/19 09:32 Dose: 5 mg Documented by: Aspirin (Ecotrin) 81 mg PO DAILY@0800 [facility] Last Admin: 07/20/19 09:31 Dose: 81 mg Documented by: Atorvastatin Calcium (Lipitor) 20 mg PO QHS [facility] Budesonide (Pulmicort Aerosol) 0.5 mg INHALATION Q12H.RT [facility] Last Admin: 07/20/19 07:05 Dose: 0.5 mg Documented by: Carvedilol (Coreg) 25 mg PO BID [facility] Last Admin: 07/20/19 09:31 Dose: 25 mg Documented by: Cholecalciferol (Vitamin D (25mcg)) 1,000 unit PO DAILY [facility] Last Admin: 07/20/19 09:31 Dose: 1,000 unit Documented by: Clopidogrel Bisulfate (Plavix) 75 mg PO DAILY [facility] Last Admin: 07/20/19 09:32 Dose: 75 mg Documented by: Dextrose (D50w Syringe) 0 gm IV X1 PRN; Protocol PRN Reason: Hypoglycemia Duloxetine HCl (Cymbalta) 60 mg PO DAILY [facility] Last Admin: 07/20/19 09:31 Dose: 60 mg Documented by: Enoxaparin Sodium (Lovenox) 30 mg SC DAILY@0600 [facility] Last Admin: 07/20/19 05:12 Dose: 30 mg Documented by: Famotidine (Pepcid) 20 mg PO DAILY [facility] Last Admin: 07/20/19 09:32 Dose: 20 mg Documented by: Glucagon () 1 mg IM .X1 PRN PRN Reason: Hypoglycemia Sodium Chloride () 1,000 mls @ 100 mls/hr IV .Q10H [facility] Last Admin: 07/20/19 08:13 Dose: 100 mls/hr Documented by: Sodium Chloride () 250 mls @ 15 mls/hr IV .[id number] PRN PRN Reason: Saline Flush Sodium Chloride () 250 mls @ 15 mls/hr IV .[id number] PRN PRN Reason: Additional IVPB Infusion Ondansetron HCl (Zofran) 4 mg IV Q8H PRN PRN PRN Reason: NAUSEA/VOMITING Sodium Chloride () 10 - 40 ml IV UD PRN PRN Reason: SALINE FLUSH Last Admin: 07/20/19 09:36 Dose: 10 ml Documented by: Addendum: Dr. Schuster I personally examined the patient and reviewed the chart. I agree with the above. 69-year-old male with a history of hypertension, and COPD presents with what appears to be a syncopal episode. There was initial some concern for possible seizure versus stroke so tele-neurology was consulted and they felt that an EEG and an MRI of the brain would be warranted. The EEG is negative for any seizure-like activity however the MRI is pending. Given the syncope and some bradycardia, an echocardiogram is also pending. He does have an KENNY, his baseline creatinine is around 1.6 and on admission was 2.18. He started some IV fluids and his creatinine today is 1.85. We will continue with PT/OT evaluation for possible placement and await further results of his testing. He is currently not bradycardic, with heart rate in the 70s and 80s. Therefore we will continue with his home blood pressure medications and continue to monitor. Orthostatic vital signs are unremarkable. OBSV E&M: [id number] Subsequent observation care L2
[2019-07-20] MEDS: LORazepam 2 MG/ML Syringe 0.5 MG IV (12:45)
[2019-07-20] MEDS: predniSONE 20 MG Tablet 40 MG PO (15:19)
--- NOTE | 2019-07-20 15:45 | NURSING ---
This RN taking over patient care at this time. Report received from Alyssa Harris RN
[2019-07-20] MEDS: Atorvastatin Calcium 20 MG Tablet PO (22:35)
[2019-07-21] MEDS: Enoxaparin 30 MG/0.3 ML Syringe SC (05:25)
[2019-07-21] MEDS: 0.9% Normal Saline 1,000 ML 100 ML IV (05:25)
[2019-07-21 06:51] VITALS: PULSE 74
[2019-07-21 07:34] VITALS: PULSE 88; RESP 18; O2SAT 90
[2019-07-21] MEDS: Albuterol 2.5 MG/3 ML VIAL.NEB. INHALATION (07:34)
[2019-07-21 08:56] LABS: Anion Gap 8 (5-15); BUN 36 mg/dL (7-18); BUN/Creat Ratio 20.1 RATIO (10-20); Calcium,Total 8.4 mg/dL (8.5-10.1); Chloride 108 mmol/L (98-107); Creatinine, Serum 1.79 mg/dL (0.70-1.30); EST Glomerular Filtration Rate 40 mL/min (>60); Est Glom Filt Rate - Afr Amer 48 mL/min (>60); Glucose 119 mg/dL (74-106); Potassium 4.3 mmol/L (3.5-5.1); Sodium Level 136 mmol/L (136-145)
[2019-07-21 09:00] VITALS: BP 166/89; PULSE 75; RESP 20; TEMP 36.4; O2SAT 93
[2019-07-21] MEDS: Aspirin E.C. 81 MG Tablet PO (09:05)
[2019-07-21] MEDS: Clopidogrel Bisulfate 75 MG Tablet PO (09:05)
[2019-07-21] MEDS: predniSONE 20 MG Tablet 40 MG PO (09:05)
[2019-07-21] MEDS: amLODIPine 5 MG Tablet PO (09:05)
[2019-07-21] MEDS: Carvedilol 25 MG Tablet PO (09:05)
[2019-07-21] MEDS: DULoxetine Hcl 60 MG Capsule PO (09:05)
[2019-07-21] MEDS: Famotidine 20 MG Tablet PO (09:05)
--- NOTE | 2019-07-21 10:15 | CASEMGMT ---
Addendum entered by Domenica Hill 07/21/19 14:24: D/C summary faxed at this time. [place] MARTI TOWNSEND Original Note: MARTI TOWNSEND Face to Face with patient for initial transition planning/care coordination assessment. MARTI TOWNSEND introduced self and role at [facility]. Patient sitting in chair, alert and confused. Patient gave permission for CM to call . RN CM called and willing to participate in assessment and is able to answer all questions appropriately. Care providers, pharmacy, and demographics verified. , Jada, wishes for patient to discharge home with HHC. MARTI TOWNSEND review list of HHC with and [facility] states she has no further needs or concerns at this time. CM to follow for discharge planning needs that may arise. PCP: Maurizio Specialists: [facility] on [address] Preferred Pharmacy: [facility] Insurance: [facility] Prescription Benefit: yes Living Will/HPOA: none LNOK: , daughter, grandson Living Arrangements: Patient lives with and grandson in 1 story home with no steps to enter. states that patient needs assistance with ADLs. Transportation: DME/HHC: states patient has cane and walkers at home. Oxygen 2 lpm with portability through [facility] in [place] [phone]. Patient mostly wears oxygen at night if he remembers. Per , oxygen company in [place] says concentrator is his as insurance has paid for it and portable tanks are not the companies responsibility anymore. states it has been over five years since they have used the company. Disposition Plan: Patient to discharge home with HHC, family support, and follow-up plans in place. Domenica MENDIETA, RN, CM
--- NOTE | 2019-07-21 10:58 | PCM.DC ---
- Discharge Diagnoses Current Active Problems: Current Active and Chronic Problems (Last Updated 07/20/19 @ 00:[address] Suresh Shetty MD) Altered mental status (Acute) Syncope and collapse (Acute) End stage renal disease (Acute) Syncope (Acute) HTN (hypertension) (Chronic) You will use the following diet at home:: Cardiac Your food should be the consistency of: Regular Your liquids should be the consistency of: Regular/Thin Discharge Activity: Return to Normal Activity Additional Instructions: discuss with your PCP whether you may resume taking losartan. Allergies/Adverse Reactions: Allergies tiotropium [From [facility] with [employer]] Allergy (Verified 07/19/19 19:37) Swelling Medications to take at Discharge Albuterol Inhaler [Ventolin Hfa] 2 puff INHALATION Q4H PRN PRN 01/22/19 Amlodipine [Norvasc] 5 mg PO DAILY 01/22/19 Aspirin E.C. [Ecotrin] 81 mg PO DAILY@0800 01/22/19 Atorvastatin Calcium [Lipitor] 20 mg PO QHS 01/22/19 Budesonide/Formoterol Fumarate [Symbicort 80-4.5 Mcg Inhaler] 2 puff INHALATION BID 01/22/19 Carvedilol 25 mg PO BID 01/22/19 Cholecalciferol (Vitamin D3) [Vitamin D3] 1,000 unit PO DAILY 01/22/19 Clopidogrel Bisulfate [Clopidogrel] 75 mg PO DAILY 01/22/19 Duloxetine Hcl [Cymbalta] 60 mg PO DAILY 01/22/19 Famotidine [Pepcid] 20 mg PO DAILY 01/22/19 Loperamide [Imodium] 4 mg PO Q4H PRN 01/22/19 Nitroglycerin (INPATIENT USE) [Nitrostat] 0.4 mg SUBLINGUAL PRN PRN 01/22/19 predniSONE tablet 40 mg PO DAILY@0800 #6 tab 07/21/19 The following prescriptions were given: predniSONE tablet 40 mg PO DAILY@0800 #6 tab Transmission Status: Pending to [id number] Primary Care Physician: Edi Steven PA [Primary Care Provider] - Please follow up with your Primary Care Physician in: 1 week Test Results: Test results from this visit will be discussed in further detail at your follow-up appointment, if applicable. Proposed Discharge Date: 07/21/19
[2019-07-21 11:24] VITALS: O2SAT 80
--- NOTE | 2019-07-21 11:26 | NURSING ---
discharge instructions reviewed with daughter, Stefanie, via phone. informed that we are waiting for new portable oxygen tank to arrive and then will be able to d/c patient. will call daughter when tank arrives.
--- NOTE | 2019-07-21 12:04 | PCM.DC.SUM ---
<Juaquin Hercules - Last Filed: 07/21/19 12:04> Discharge Date and Diagnosis Date of Admission: 07/19/19 Date of Discharge: 07/21/19 - Primary Discharge Diagnosis Active and Suspected Problems (Last Updated 07/20/19 @ 00:[address] Suresh Shetty MD) Syncope, KENNY, 2/2 dehydration, CKD III Chronic hypoxic respiratory failure 2/2 COPD, no acute exacerbation HTN Suspect underlying dementia - Secondary Discharge Diagnosis Chronic Problems (Last Updated 07/20/19 @ 00:[address] Suresh Shetty MD) HTN (hypertension) (Chronic) Hospital Course and Treatment Imaging Results: CT/Brain/Head without Contrast IMPRESSION: No CT evidence of acute infarct or hemorrhage. If there is clinical concern for hyperacute ischemia that is not evident by CT, MRI should be considered if possible. RAD/Chest 1 View (Portable) IMPRESSION: Patchy alveolar disease is suspected in both lung bases. Mild bibasilar pneumonia cannot be excluded. Left basilar atelectasis. Echo: Interpretation Summary Mild concentric left ventricular hypertrophy. The estimated ejection fraction is 65 %. Stage 1 diastolic dysfunction. Trivial mitral valve insufficiency. Trivial tricuspid valve insufficiency. Right ventricular systolic pressure estimated to be 34 mmHg. Trivial aortic valve insufficiency. There is no aortic stenosis. There is no comparison study available. MRI/Brain without Contrast IMPRESSION: No acute intracranial abnormality. Moderate chronic microvascular ischemic changes EEG: negative Operations: None Procedures: 2-D Echocardiogram, Electroencephalogram Summary of Care Provided: Hospital course: The patient is a 69 year old M with pmhx as above who presented to the ER with c/o syncope. The patient cannot remember what happened. He was brought to the ER by paramedics from home, he had some bradycardia on EKG. He had a BMP consistent with KENNY on CKD stage III. His Coreg and losartan were held. He was admitted for syncope work-up. Tele-neurology was consulted. CT of the brain was negative, MRI of the brain was negative, EEG was negative, echo was unremarkable as above. He was felt to have had syncope secondary to dehydration and KENNY, he was given IV fluids for this and had good improvement in his renal function. Coreg was resumed with no further issues with bradycardia. Losartan continues to be held due to his acute kidney injury, the possibility of restarting this can be discussed with his PCP at follow-up. Also of note he did continue to require oxygen throughout the day, normally he only uses it at night. Is felt that he did not have any acute issue attributing to this, he likely was receiving inadequate oxygen supplementation with his prior dose, and will continue to need 2 L/min via nasal cannula during the day as well as he is active at home and in the community. He continued to have some underlying confusion at times and we suspect he has some underlying dementia. The patient was discharged home with home health care in stable condition. He will need follow-up with his PCP in 1 week. This patient was seen by Juaquin Hercules PA-C under the supervision of Doctor Landen. [] - Physical Exam Vitals/I&O's: Vital Signs Temp Pulse Resp BP Pulse Ox 97.5 F L 75 20 H 166/89 H 80 07/21/19 09:00 07/21/19 09:00 07/21/19 09:00 07/21/19 09:00 07/21/19 11:24 Oxygen Flow Rate (L/min) 2 Oxygen Delivery Method Nasal Cannula Weight: 151 lb 3.794 oz Body Mass Index (BMI) 25.1 Intake and Output for Last 24 Hours 07/19/19 07/20/19 07/21/19 23:59 23:59 23:59 Intake Total 2960.00 / 3510.00 2100 / 2100 Output Total 350 / 350 975 / 1300 325 / 325 Balance -350 / -350 1985.00 / 2210.00 1775 / 1775 General: Alert, Oriented x3, Cooperative HEENT: Atraumatic, PERRLA, EOMI, Normocephalic Neck: Supple, No JVD, Negative Carotid Bruits Lungs: Clear to auscultation, Normal air movement Cardiovascular: Regular rate, No murmurs Abdomen: Bowel Sounds Present, Soft, Non Tender Extremities: No edema, Capillary Refill Less than 3 Seconds Skin: No rashes, No breakdown Musculoskeletal: No Tenderness to Palpation of Joints or Extremities Neurological: Cranial nerves II-XII grossly intact Psych/Mental Status: Normal Affect, Appropriate, Alert and oriented to time, place, person, mood and affect Laboratory Results 07/21/19 04:50: Sodium 136, Potassium 4.3, Chloride 108 H, Carbon Dioxide 20.0 L, Anion Gap 8, BUN 36 H, Creatinine 1.79 H, Estim Creat Clear Calc 33.40, Est GFR (MDRD) Af Amer 48 L, Est GFR (MDRD) Non-Af 40 L, BUN/Creatinine Ratio 20.1 H, Glucose 119 H, Calcium 8.4 L Current Medications Albuterol Sulfate (Ventolin Aerosols) 2.5 mg INHALATION Q2H PRN PRN PRN Reason: sob/wheezing Albuterol Sulfate (Ventolin Aerosols) 2.5 mg INHALATION Q6HWA.RT [facility] Last Admin: 07/21/19 07:34 Dose: 2.5 mg Documented by: Amlodipine Besylate (Norvasc) 5 mg PO DAILY [facility] Last Admin: 07/21/19 09:05 Dose: 5 mg Documented by: Aspirin (Ecotrin) 81 mg PO DAILY@0800 [facility] Last Admin: 07/21/19 09:05 Dose: 81 mg Documented by: Atorvastatin Calcium (Lipitor) 20 mg PO QHS [facility] Last Admin: 07/20/19 22:35 Dose: 20 mg Documented by: Carvedilol (Coreg) 25 mg PO BID [facility] Last Admin: 07/21/19 09:05 Dose: 25 mg Documented by: Cholecalciferol (Vitamin D (25mcg)) 1,000 unit PO DAILY [facility] Last Admin: 07/21/19 09:05 Dose: 1,000 unit Documented by: Clopidogrel Bisulfate (Plavix) 75 mg PO DAILY [facility] Last Admin: 07/21/19 09:05 Dose: 75 mg Documented by: Dextrose (D50w Syringe) 0 gm IV X1 PRN; Protocol PRN Reason: Hypoglycemia Duloxetine HCl (Cymbalta) 60 mg PO DAILY [facility] Last Admin: 07/21/19 09:05 Dose: 60 mg Documented by: Enoxaparin Sodium (Lovenox) 30 mg SC DAILY@0600 [facility] Last Admin: 07/21/19 05:25 Dose: 30 mg Documented by: Famotidine (Pepcid) 20 mg PO DAILY [facility] Last Admin: 07/21/19 09:05 Dose: 20 mg Documented by: Glucagon () 1 mg IM .X1 PRN PRN Reason: Hypoglycemia Sodium Chloride () 1,000 mls @ 100 mls/hr IV .Q10H [facility] Last Infusion: 07/21/19 11:10 Dose: Infused Documented by: Sodium Chloride () 250 mls @ 15 mls/hr IV .[id number] PRN PRN Reason: Saline Flush Sodium Chloride () 250 mls @ 15 mls/hr IV .[id number] PRN PRN Reason: Additional IVPB Infusion Ondansetron HCl (Zofran) 4 mg IV Q8H PRN PRN PRN Reason: NAUSEA/VOMITING Prednisone () 40 mg PO DAILY@0800 [facility] Last Admin: 07/21/19 09:05 Dose: 40 mg Documented by: Sodium Chloride () 10 - 40 ml IV UD PRN PRN Reason: SALINE FLUSH Last Admin: 07/20/19 12:45 Dose: 10 ml Documented by: Discharge Diet: Low fat/ Low Cholesterol, 2000 mg Sodium Diet Discharge Activity: Return to Normal Activity Home Medications: Medications to take at Discharge Albuterol Inhaler [Ventolin Hfa] 2 puff INHALATION Q4H PRN PRN 01/22/19 Amlodipine [Norvasc] 5 mg PO DAILY 01/22/19 Aspirin E.C. [Ecotrin] 81 mg PO DAILY@0800 01/22/19 Atorvastatin Calcium [Lipitor] 20 mg PO QHS 01/22/19 Budesonide/Formoterol Fumarate [Symbicort 80-4.5 Mcg Inhaler] 2 puff INHALATION BID 01/22/19 Carvedilol 25 mg PO BID 01/22/19 Cholecalciferol (Vitamin D3) [Vitamin D3] 1,000 unit PO DAILY 01/22/19 Clopidogrel Bisulfate [Clopidogrel] 75 mg PO DAILY 01/22/19 Duloxetine Hcl [Cymbalta] 60 mg PO DAILY 01/22/19 Famotidine [Pepcid] 20 mg PO DAILY 01/22/19 Loperamide [Imodium] 4 mg PO Q4H PRN 01/22/19 Nitroglycerin (INPATIENT USE) [Nitrostat] 0.4 mg SUBLINGUAL PRN PRN 01/22/19 predniSONE tablet 40 mg PO DAILY@0800 #6 tab 07/21/19 Following Prescrptions Were Given to Patient: predniSONE tablet 40 mg PO DAILY@0800 #6 tab Transmission Status: Received by [facility] Primary Care Physician: Edi Steven PA [Primary Care Provider] - Please follow up with your Primary Care Physician in: 1 week Disposition: Home with Home Health Minutes spent on discharge:: 35 Patient Condition:: Stable Medical Necessity - Tobacco Use Smoking Status: Current every day smoker Tobacco Use: Cigarettes Meaningful Use Info Meaningful Use Diagnoses (Choose all that apply): None applicable <Yvon Schuster Suzanne - Last Filed: 07/21/19 17:04> Discharge Date and Diagnosis - Secondary Discharge Diagnosis Chronic Problems (Last Updated 07/20/19 @ 00:[address] Suresh Shetty MD) HTN (hypertension) (Chronic) Hospital Course and Treatment Summary of Care Provided: The patient is a 69 year old M [] - Physical Exam Vitals/I&O's: Vital Signs Temp Pulse Resp BP Pulse Ox 97.5 F L 75 20 H 166/89 H 80 07/21/19 09:00 07/21/19 09:00 07/21/19 09:00 07/21/19 09:00 07/21/19 11:24 Oxygen Flow Rate (L/min) 2 Oxygen Delivery Method Nasal Cannula Weight: 151 lb 3.794 oz Body Mass Index (BMI) 25.1 Intake and Output for Last 24 Hours 07/19/19 07/20/19 07/21/19 23:59 23:59 23:59 Intake Total 2960.00 / 3510.00 2100 / 2100 Output Total 350 / 350 975 / 1300 325 / 325 Balance -350 / -350 1985.00 / 2210.00 1775 / 1775 Laboratory Results 07/21/19 04:50: Sodium 136, Potassium 4.3, Chloride 108 H, Carbon Dioxide 20.0 L, Anion Gap 8, BUN 36 H, Creatinine 1.79 H, Estim Creat Clear Calc 33.40, Est GFR (MDRD) Af Amer 48 L, Est GFR (MDRD) Non-Af 40 L, BUN/Creatinine Ratio 20.1 H, Glucose 119 H, Calcium 8.4 L Addendum: Dr. Schuster I personally examined the patient and reviewed the chart. I agree with the above. 69-year-old male with a history of hypertension and COPD presents with what appears to be a syncopal episode. He had some incontinence with the episode so there is also concern for some possible seizure-like activity therefore [facility] neurology was consulted. They recommended an MRI and EEG both of which were negative. He also did have an KENNY on admission with a creatinine of 2.18 and his baseline is generally around 1.6. He was started on IV fluids and ultimately did improve to 1.79 however his losartan was continued to be held. He also was evaluated by PT and OT, however he stated he did not want to go to a [place] [facility] [place] facility his felt that she could help take care of him at home. So he was discharged home with home health. He does normally take oxygen at night at 2 L but he was requiring 2 L 24 hours a day so he was discharged home with continuous oxygen. His lungs did have some wheezes and therefore it was felt that he could be in a COPD exacerbation and therefore was also started on prednisone and discharged home with that as well. There was also an issue of some bradycardia, the lowest is gotten here was in the 50s and he was continued on his Coreg and did not have any further issues with bradycardia therefore his syncope was likely related to his KENNY and possible prerenal volume depletion. He will need to follow-up with his primary care doctor likely via tele-visit on discharge. Inpatient E&M: [id number] Disch Hosp
== END 2019-07-21 12:13 | disposition home or self-care (01) | DRG 641 ==
LOC: ED 20:29 → PCU 20:48
PROVIDERS: Nurse Practitioner Family; Admitting Provider Hospitalist; Emergency Provider Emergency Medicine; PCP Physician Assistant; Visit Provider Family Medicine
DX: E86.0 Dehydration (principal); N17.9 Acute kidney failure, unspecified; J96.11 Chronic respiratory failure with hypoxia; N18.3 Chronic kidney disease, stage 3 (moderate); I12.9 Hypertensive chronic kidney disease with stage 1 through stage 4 chronic kidney disease, or unspecified chronic kidney disease; R55 Syncope and collapse; J44.9 Chronic obstructive pulmonary disease, unspecified; F03.90 Unspecified dementia, unspecified severity, without behavioral disturbance, psychotic disturbance, mood disturbance, and anxiety; R41.82 Altered mental status, unspecified; Z79.51 Long term (current) use of inhaled steroids; Z79.899 Other long term (current) drug therapy; F32.9 Major depressive disorder, single episode, unspecified; F17.210 Nicotine dependence, cigarettes, uncomplicated; Z79.82 Long term (current) use of aspirin; I25.10 Atherosclerotic heart disease of native coronary artery without angina pectoris; Z95.5 Presence of coronary angioplasty implant and graft; Z23 Encounter for immunization
CPT/HCPCS: 36415; 36600; 51702; 70450; 70551; 71045; 80048; 80053; 81001; 82803; 83605; 83880; 84146; 84484; 85025; 85610; 85730; 93005; 93306; 94640; 95819; 97110; 97116; 97162; 99285; 99406; G0008; J7030; 90686; A4216; J2405

== ENCOUNTER 2019-07-29 16:02 | Emergency (ER) | payer MEDICARE, MEDICAID, SELFPAY ==
[2019-07-19 21:38] VITALS: BMI 25.1
[2019-07-29 16:03] VITALS: BP 145/85; PULSE 64; RESP 16; TEMP 36.6; O2SAT 96; BMI 29.9
--- NOTE | 2019-07-29 16:52 | EKG12_ITS ---
Test Reason : SOB Blood Pressure : / mmHG Vent. Rate : 059 BPM Atrial Rate : 059 BPM P-R Int : 146 ms QRS Dur : 084 ms QT Int : 410 ms P-R-T Axes : 051 043 056 degrees QTc Int : 405 ms Sinus bradycardia Otherwise normal ECG Confirmed by MELVIN ROPER, DOUG ([id number]), film and video editor GERSON CALLE ([id number]) on 08/01/2019 8:39:14 AM Referred By: BEATRIZ Confirmed By:DOUG CHARLES MD
--- NOTE | 2019-07-29 17:03 | ED.DCSUM_ITS ---
History of Present Illness Chief Complaint: Shortness of Breath Informant: Patient Onset: Month(s) - 2 Timing: Continuous Associated Symptoms: Cough. Negative for: Chills, Fever, Sore throat Narrative: Patient is a 69-year-old male with history of chronic hypoxia on 2 to 3 L in the evening presenting with worsening shortness of breath. Patient states that worsening shortness of breath over the past 2 months. He denies any associated chest pain. He states he does have a mild cough that is been nonproductive. He denies any fever or chills. Denies any swelling of his legs. He does have intermittent wheezing. He states his daughter came over today and was concerned and insisted he come to the emergency room. Patient otherwise would not have came. Patient denies any other complaints at this time. He states his been eating and drinking normally. No GI or symptoms. Past Medical History - Allergies and Home Meds Allergies/Adverse Reactions: Allergies tiotropium [From Spiriva with HandiHaler] Allergy (Verified 07/29/19 16:04) Swelling Primary Care Physician: Edi Steven PA [Primary Care Provider] - 5-7 Days Past Medical History: - - Syncope, chronic kidney disease, hypertension, COPD Surgical History: - - Patient denies any surgical history. Smoking Status: Current every day smoker - Family History Maternal Family History: Reports: - - Patient denies knowledge of maternal medical history. Paternal Family History: Reports: Heart Disease Review of Systems General: Denies: Chills, Fever, Sweats Eyes: Denies: Visual changes - bilaterally, Diplopia ENT: Denies: Rhinorrhea, Sore throat Cardiovascular: Denies: Chest pain, Palpitations Respiratory: Reports: Dyspnea, Cough, Dyspnea on exertion Gastrointestinal: Denies: Abdominal pain, Nausea, Vomiting, Diarrhea, Melena, Hematochezia Genitourinary: Denies: Dysuria, Hematuria, Frequency Musculoskeletal: Denies: Back pain, Extremity Pain Skin: Denies: Rash, Wounds Neurological: Denies: Headache, Weakness, Numbness Physical Exam Vital Signs/Narrative: Vital Signs Temp Pulse Resp BP Pulse Ox 07/29/19 16:03 97.8 F 64 16 145/85 H 96 Inital Vital Signs reviewed: Yes General: Well nourished, Well developed, No Acute Distress Head: Normocephalic, Atraumatic Eyes: Perrl, EOMI ENT: Moist mucous membranes, No rhinorrhea, TM's clear Neck: Supple, Nontender, No JVD Cardiovascular: Regular rate, Regular rhythm, No murmurs Respiratory: No distress, Chest nontender, Rhonchi - Bases bilaterally Abdomen: Soft, Nontender, Nondistended, Normal bowel sounds Back: Nontender, Normal Inspection Extremities: Nontender, No edema Skin: Normal color, No rash Neurological: Alert, Oriented x3, Cranial nerves II-XII grossly intact, Normal Strength, Normal Sensation Psychological: Normal affect, Normal Mood Diagnostic/Tx/Re-eval Chest X-Ray - ED: 1 View, Read by Radiologist Clinical Impression(s) from Imaging Studies Chest X-Ray 07/29/19 17:55 IMPRESSION: Prominent interstitial markings in the lower lobes with slightly improved aeration since previous study. Electronically Signed: Markos Marin MD at 18:15 EDT , Service support , Laboratory Data 07/29/19 07/29/19 07/29/19 17:04 17:04 17:04 WBC 6.1 RBC 4.05 L Hgb 13.3 Hct 39.7 L MCV 98.0 H MCH 32.8 H MCHC 33.5 RDW Std Deviation 47.5 H RDW Coeff of Kylie 13.2 Plt Count 163 MPV 9.7 Immature Gran % (Auto) 0.700 Neut % (Auto) 84.3 H Lymph % (Auto) 11.9 L [place] % (Auto) 2.9 Eos % (Auto) 0.0 Baso % (Auto) 0.2 Absolute Neuts (auto) 5.2 Absolute Lymphs (auto) 0.73 L Nucleated RBC % 0 Differential Comment SCANNED Platelet Estimate ADEQUATE RBC Morphology NORM C+C Sodium 135 L Potassium 4.8 Chloride 102 Carbon Dioxide 28.0 Anion Gap 5 BUN 32 H Creatinine 1.64 H Estim Creat Clear Calc 36.46 Est GFR (MDRD) Af Amer 54 L Est GFR (MDRD) Non-Af 44 L BUN/Creatinine Ratio 19.5 Glucose 134 H Calcium 9.4 Troponin I < 0.015 B-Natriuretic Peptide 219.1 H - Rhythm Strip Rhythm Strip: bradycardia Rate: 59 Ectopy: None - EKG Initial EKG Interpretation: Sinus Bradycardia, - - Sinus bradycardia rate of 59Normal intervals, normal axis. Normal ST segments. - Medical Decision Making Patient is evaluated for worsening shortness of breath over the past few months. Not clear why exactly he came today but seems to be because his daughter was worried about him. Patient is on his baseline oxygen. He is not in any type of extremis. He is hemodynamically stable. He is not hypoxic. Patient is ambulating emergency room and stays above 92%. He is not symptomatic. Patient does have some interstitial changes at the base of his lungs and an elevation of his proBNP. Patient be started on diuretic therapy. I did touch base with PCP on-call, Dr. eRsendez, is agreeable with plan. He is counseled that patient will need follow-up within the week. Patient's creatinine is actually slightly better than his baseline so I think he should tolerate the Lasix well. He will start it tomorrow morning it is his evening time and he is not up all night urinating. Patient counseled on signs and symptoms require return the emergency room. He denies any findings concerning for pneumonia, ACS or acute viral syndrome. Patient discharged home in stable condition. ED Disposition - Plan for ED Patient: Disposition: Home or Assisted Living Diagnosis: Dyspnea, Fluid overload Instructions: ED CHF General Prescriptions: Furosemide [Lasix] 40 mg PO DAILY #10 tab Transmission Status: Pending to [facility] Referrals: Edi Steven PA [Primary Care Provider] - 5-7 Days
[2019-07-29 17:14] LABS: Absolute Lymphocyte Count 0.73 X10^3/uL (0.83-4.51); Absolute Neutrophil Count 5.2 X10^3/uL (2.0-7.7); Basophil# 0.01 X10^3/uL; Basophil% 0.2 % (0-1); Hematocrit 39.7 % (40-54); Hemoglobin 13.3 g/dL (13.0-16.5); Lymphocyte # 0.73 X10^3/ul (4.0); Lymphocyte % 11.9 % (19-41); Mean Corp Hgb Conc 33.5 g/dL (32-36); Mean Corpuscular Hgb 32.8 pg (27.0-32.0); Mean Platelet Vol. 9.7 fl (6.2-12.0); Monocyte# 0.18 X10^3/uL; Monocyte% 2.9 % (0-10); NRBC Flagged by Analyzer 0 % (0-5); Neutrophil # 5.15 X10^3/uL (2.7-7.7); Neutrophil % 84.3 % (47-70); POSITIVE MORPHOLOGY YES; Platelet Count 163 K/mm3 (150-450); RBC Distribution Width CV 13.2 % (11.6-14.6); RBC Distribution Width SD 47.5 fl (35.1-43.9); Red Blood Count 4.05 M/mm3 (4.6-6.2); White Blood Count 6.1 K/mm3 (4.4-11.0)
[2019-07-29 17:43] LABS: Differential Indicated SCAN CRITERIA MET
[2019-07-29 17:44] LABS: Anion Gap 5 (5-15); BUN 32 mg/dL (7-18); BUN/Creat Ratio 19.5 RATIO (10-20); Calcium,Total 9.4 mg/dL (8.5-10.1); Chloride 102 mmol/L (98-107); Creatinine, Serum 1.64 mg/dL (0.70-1.30); EST Glomerular Filtration Rate 44 mL/min (>60); Est Glom Filt Rate - Afr Amer 54 mL/min (>60); Estimated Creatinine Clearance 36.46 ml/min; Glucose 134 mg/dL (74-106); Potassium 4.8 mmol/L (3.5-5.1); Sodium Level 135 mmol/L (136-145)
[2019-07-29 17:49] LABS: BNP,B-Type NATRIURETIC PEPTIDE 219.1 pg/mL (0-100)
--- NOTE | 2019-07-29 17:55 | RAD_ITS ---
STUDY: X-RAY CHEST REASON FOR EXAM: Male, 69 years old. SOB, WORSENING DYSPNEA, HX COPD TECHNIQUE: PA and lateral COMPARISON: July 19, 2019 FINDINGS: There is prominence of the interstitial markings in the lower lobes.. There is no demonstrated pleural abnormality. Normal size heart. Normal mediastinum and estefani. Normal visualized pulmonary arteries. Tortuous aortic arch and descending thoracic aorta. Dorsal spine is trace degenerative change Normal visualized ribs, clavicles, and shoulders. Postsurgical changes are seen within the upper abdomen. There is slightly improved aeration in the lower lobes since prior exam. RAD/Chest PA and Lateral IMPRESSION: Prominent interstitial markings in the lower lobes with slightly improved aeration since previous study. Electronically Signed: Markos Marin MD at 18:15 EDT , Service support ,
[2019-07-29 18:24] VITALS: BP 145/78; PULSE 88; RESP 14; O2SAT 97
[2019-07-29 18:37] VITALS: O2SAT 99
[2019-07-29 18:43] LABS: Differential Comment SCANNED; Platelet Estimate ADEQUATE (ADEQ); Red Cell Morphology NORM C+C NORMAL (NORM C&C)
[2019-07-29 19:30] VITALS: BP 173/99; PULSE 91; RESP 20; O2SAT 96
--- NOTE | 2019-07-29 19:51 | ED.RN ---
CALLED FOR A RIDE FOR THE PT. SAID SHE WAS GOING TO GET IN TOUCH WITH HIS DAUGHTER TO PICK HIM UP.
--- NOTE | 2019-07-29 21:03 | ED.RN ---
CALLED FAMILY FOR A RIDE FOR A SECOND TIME. THEY SAID THEY WERE ON THEIR WAY TO GET HIM.
== END 2019-07-29 19:34 | disposition home or self-care (01) ==
PROVIDERS: Emergency Provider Emergency Medicine; PCP Physician Assistant
DX: E87.70 Fluid overload, unspecified (principal); R06.00 Dyspnea, unspecified; J44.9 Chronic obstructive pulmonary disease, unspecified; I12.9 Hypertensive chronic kidney disease with stage 1 through stage 4 chronic kidney disease, or unspecified chronic kidney disease; N18.9 Chronic kidney disease, unspecified; F17.200 Nicotine dependence, unspecified, uncomplicated; Z79.51 Long term (current) use of inhaled steroids; Z79.82 Long term (current) use of aspirin; Z79.899 Other long term (current) drug therapy
CPT/HCPCS: 71046; 80048; 83880; 84484; 85025; 93005; 99284; A4216

== ENCOUNTER 2020-05-17 11:07 | Inpatient (IN) | payer MEDICARE, MEDICAID, SELFPAY ==
[2020-05-17] VITALS (13 sets, daily range): BP systolic 163–205; BP diastolic 82–105; PULSE 54–63; RESP 12–20; TEMP 36.3–37.2; O2SAT 96–100; BMI 23.8; BMI 24.5; BMI 23.9; BMI 24.0
--- NOTE | 2020-05-17 11:10 | EKG12_ITS ---
Test Reason : Blood Pressure : / mmHG Vent. Rate : 055 BPM Atrial Rate : 055 BPM P-R Int : 152 ms QRS Dur : 086 ms QT Int : 466 ms P-R-T Axes : 064 046 063 degrees QTc Int : 445 ms Sinus bradycardia Minimal voltage criteria for LVH, may be normal variant Borderline ECG Confirmed by EDSON ROPER, JERZY ([id number]), newspaper or periodical editor JOSE CANNON ([id number]) on 05/30/2020 9:03:15 AM Referred By: LATONYA Confirmed By:JERZY SANDHU MD
--- NOTE | 2020-05-17 11:10 | CT_ITS ---
STUDY: CT HEAD STROKE PROTOCOL W/O CONTRAST INJECTION REASON FOR EXAM: Male, 70 years old. CVA RADIATION DOSAGE (If Supplied By Facility): CTDIvol = ( 44.99 ) mGy, DLP = ( 762.36 ) mGycm TECHNIQUE: Transaxial CT imaging of the brain was performed without administration of intravenous contrast material. Individualized dose optimization techniques were used for this CT. COMPARISON: Comparison is made with prior study dated 07/19/2019. FINDINGS: Normal soft tissue structures. Normal calvarium. There is mild cerebral atrophy with widening of the extra-axial spaces and ventricular dilatation. There are areas of decreased attenuation within the white matter tracts of the supratentorial brain, consistent with microvascular disease changes. 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 Normal brainstem. Normal cerebellum. There is no intracranial hemorrhage. There are no findings of an acute ischemic infarction. Atherosclerotic calcification of the cavernous portions of the internal carotid arteries bilaterally. Normal visualized paranasal sinuses. CT/STROKE Brain/Head without Cont IMPRESSION: Chronic involutional changes of the brain. N.B. : The above information has been verbally conveyed by Med Srinivasan MD to Chase Andersen on 05/17/2020 11:22:18 (ET). Electronically Signed: Med Srinivasan MD at 11:23 EST , Service support ,
--- NOTE | 2020-05-17 11:10 | CM.ED ---
SOCIAL WORK Responded to Stroke Alert. No family present at this time. This worker to remain available for needs. Angela Darnell, NFL PLAYER, SALES CLERK
--- NOTE | 2020-05-17 11:11 | CT_ITS ---
STUDY: CTA HEAD AND NECK WITH CONTRAST REASON FOR EXAM: Male, 70 years old. Neuro deficit, left side. Hx hypertension. RADIATION DOSAGE (If Supplied By Facility): CTDIvol = ( 27.82 ) mGy, DLP = ( 723.97 ) mGycm TECHNIQUE: CT angiography was performed with a multi-detector CT scanner. Data acquisition was obtained from the skull base through the vertex following intravenous administration of IV 100mL Isovue-370. MIP images were reconstructed from the axial data set. Post-processing of the angiographic images was performed, with multiplanar reformation and 3D reconstruction. Individualized dose optimization techniques were used for this CT. COMPARISON: CT earlier today FINDINGS: Mild amount calcified plaque within the petrous carotid arteries bilaterally but without significant stenosis. There is calcified plaque formation of the right cavernous carotid artery, without a cross-sectional luminal stenosis. There is calcified plaque formation of the left cavernous carotid artery, without a cross-sectional luminal stenosis. Normal right A1 segments of the anterior cerebral artery. Normal left A1 segments of the anterior cerebral artery. Normal intact anterior communicating artery (ACOM). Normal bilateral A2 segments of the anterior cerebral arteries. Normal right M1 and M2 segments of the middle cerebral arteries, with a normal M1 bifurcation. Normal left M1 and M2 segments of the middle cerebral arteries, with a normal M1 bifurcation. There is a persistent origin of the right posterior cerebral artery with absence of the posterior communicating artery (PCOM). Normal left posterior communicating artery (PCOM). Normal bilateral vertebral arteries. Normal basilar artery with a normal basilar bifurcation. The visualized bilateral superior cerebellar (SCA) arteries are normal. Normal bilateral P1, P2 and visualized P3 segments of the posterior cerebral arteries. There is no demonstrated aneurysm of the [place] of [place]. There is no demonstrated abnormality of the visualized brain. AORTIC ARCH: Normal visualized aortic arch. Normal origins of the brachiocephalic, left common carotid, and left subclavian arteries. RIGHT CAROTID ARTERIES: Normal right common carotid artery (CCA). There is mild atherosclerotic plaque formation with minimal narrowing of the right carotid bulb. There is mild atherosclerotic plaque formation of the origin of the right internal carotid artery with less than 50% cross sectional diameter stenosis. Normal visualized cervical portion of the right internal carotid artery. Normal origin of the right external carotid artery (ECA). LEFT CAROTID ARTERIES: Normal left common carotid artery (CCA). There is mild atherosclerotic plaque formation with minimal narrowing of the left carotid bulb. Normal origin of the left internal carotid (ICA) artery without a hemodynamically significant stenosis. Normal visualized cervical portion of the left internal carotid artery. Normal origin of the left external carotid artery (ECA). VERTEBRAL ARTERIES: Normal bilateral vertebral arteries. CT/STROKE CTA Head AND Neck W/Con IMPRESSION: 1. Mild (20%) carotid stenosis bilaterally. 2. Patent vertebral arteries. 3. No intracranial stenosis or aneurysm. N.B. : The above information has been verbally conveyed by Keron Barcenas MD to Chase Andersen MD, on 05/17/2020 12:07:56 (ET). Electronically Signed: Keron Barcenas MD at 12:09 EST Tel , Service support ,
[2020-05-17 11:39] LABS: Absolute Lymphocyte Count 1.69 X10^3/uL (0.83-4.51); Absolute Neutrophil Count 2.5 X10^3/uL (2.0-7.7); Basophil# 0.04 X10^3/uL; Basophil% 0.8 % (0-1); Eosinophils% 4.1 % (0-5); Hematocrit 31.9 % (40-54); Hemoglobin 10.4 g/dL (13.0-16.5); Lymphocyte # 1.69 X10^3/ul (4.0); Lymphocyte % 34.3 % (19-41); Mean Corp Hgb Conc 32.6 g/dL (32-36); Mean Corpuscular Hgb 32.1 pg (27.0-32.0); Mean Corpuscular Volume 98.5 fL (80-94); Mean Platelet Vol. 9.2 fl (6.2-12.0); Monocyte# 0.52 X10^3/uL; Monocyte% 10.6 % (0-10); NRBC Flagged by Analyzer 0 % (0-5); Neutrophil # 2.45 X10^3/uL (2.7-7.7); Neutrophil % 49.8 % (47-70); POSITIVE COUNT YES; Platelet Count 93 K/mm3 (150-450); RBC Distribution Width CV 13.7 % (11.6-14.6); RBC Distribution Width SD 49.2 fl (35.1-43.9); Red Blood Count 3.24 M/mm3 (4.6-6.2); White Blood Count 4.9 K/mm3 (4.4-11.0)
[2020-05-17 11:40] LABS: Differential Indicated SCAN CRITERIA MET
[2020-05-17 11:44] LABS: International Normalized Ratio 1.3; Prothrombin Time (Protime)PT. 15.9 SECONDS (11.7-14.9)
[2020-05-17 11:45] LABS: Partial Thromboplast Time 36.3 Seconds (24.1-36.2)
[2020-05-17 11:47] LABS: Anion Gap 5 (5-15); BUN 37 mg/dL (7-18); BUN/Creat Ratio 18.8 RATIO (10-20); Calcium,Total 8.2 mg/dL (8.5-10.1); Chloride 103 mmol/L (98-107); Creatinine, Serum 1.97 mg/dL (0.70-1.30); EST Glomerular Filtration Rate 36 mL/min (>60); Est Glom Filt Rate - Afr Amer 43 mL/min (>60); Estimated Creatinine Clearance 29.92 ml/min; Glucose 89 mg/dL (74-106); Potassium 4.1 mmol/L (3.5-5.1); Sodium Level 133 mmol/L (136-145)
--- NOTE | 2020-05-17 11:50 | RAD_ITS ---
STUDY: X-RAY CHEST REASON FOR EXAM: Male, 70 years old. SLURRED SPEECH AND WEAKNESS. TECHNIQUE: Single AP portable view of the chest. COMPARISON: 07/29/2019 FINDINGS: There is hyperinflation of the lungs consistent with chronic obstructive lung disease (COPD). There is no demonstrated pleural abnormality. Normal size heart. Normal mediastinum and estefani. Normal visualized pulmonary arteries. There is atherosclerotic tortuosity of the aortic arch and descending thoracic aorta. Normal visualized thoracic spine. Normal visualized ribs, clavicles, and shoulders. There is no demonstrated abnormality of the visualized soft tissue structures of the upper abdomen. RAD/Chest 1 View IMPRESSION: Emphysema without pneumonia or atelectasis Electronically Signed: Keron Barcenas MD at 12:12 EST Tel , Service support ,
--- NOTE | 2020-05-17 12:02 | ED.VISSUMM ---
- ER Visit Summary Date of Service: 05/17/20 Chief Complaint: Stroke History of Present Illness: The patient is a 70 M brought in by EMS for possible stroke. Patient was last known well around 9 PM yesterday. He woke up with symptoms around 10:15 AM today. He has left-sided facial droop, left arm and leg weakness, slurred speech, and trouble ambulating. He has a history of TIA, bradycardia, hypertension, acute kidney injury, and colitis. He takes aspirin and Plavix. He has no other complaints. Physical Examination: Afebrile and vital signs unremarkable except for blood pressure 190/93 and heart rate 55. Coarse and diminished breath sounds bilaterally. Heart regular. Abdomen soft. Stroke scale is 6--2 level of consciousness questions, 1 facial palsy, 2 left leg weakness, 1 dysarthria. Otherwise exam was unremarkable. Test Results: EKG showed sinus rhythm at a rate of 55. Hemoglobin 10.4, platelets 93, sodium 133, BUN 37, creatinine 1.97, coags normal. Troponin normal. Covid pending. CT head unremarkable. Chest x-ray and CTA head and neck pending. Emergency Department Course and Treatment: Patient had a stroke team activated prehospital he. I saw the patient on arrival to his room in the ED. He has an NIH score of 6. And will be sent for CT and CTA. He will not meet criteria for TPA, but may have a large vessel occlusion. Remote neurology was contacted. On their evaluation, his weakness has improved. Facial droop has improved. He has some continued dysarthria. Work-up is still pending at this time. The patient will need admission for stroke/TIA evaluation. Hemoglobin 10.4, platelets 93, trending down since about 9 months ago. Kidney function stable. Other work-up is unremarkable. Covid test is pending. CT brain and CTA head and neck showed chronic changes. No significant occlusion or aneurysm. Chest x-ray shows emphysema changes. On reevaluation, patient is stable and will be admitted for further care. Treatment Plan: As above Disposition: Admission Impression: TIA This note was generated with [employer] dictation software. It may contain incorrect words, spelling, and punctuation that were not noted in review of the chart prior to signing ED Disposition - Plan for ED Patient: Referrals: Edi Steven PA [Primary Care Provider] -
[2020-05-17 12:19] LABS: Platelet Estimate MOD DEC (ADEQ)
--- NOTE | 2020-05-17 12:57 | HP.PCM_ITS ---
History of Present Illness Date of Admission: 05/17/20 Chief Complaint: left facial droop left-sided weakness and slurred speech The patient is a 70 year old M with a past medical history as outlined including a history of TIA, bradycardia, hypertension and colitis who was admitted through the ED on 05/17/2020 with a complaint of left-sided facial droop, left arm and leg weakness as well as slurred speech and trouble ambulating. He was therefore brought into the ED his last known well was at 9 PM yesterday. He woke up with the symptoms at around 10:15 AM today according to the ED notes. At the time I reviewed patient, he was alert but told me he did not know why he was brought here. His answer to most questions was I do not know. In the ED, vitals show temperature of 97.4 Fahrenheit with blood pressure of 184/105, pulse rate of 58 and respiratory rate of 19. He was saturating at 99% on 2 L of oxygen. Labs showed creatinine of 1.97 and initial troponin was negative. CBC showed hemoglobin of 10.4 with WBC of 4.9 platelets of 93. ET of the brain showed chronic involutional changes and CTA of the head and neck showed mild 20% carotid stenosis bilaterally with patent vertebral arteries and no intracranial stenosis or aneurysm. NIHSS was 6 on admission in the ED. He is being admitted t o be managed for TIA. Past Medical History Past Medical History (Chronic Problems): Chronic Problems (Last Updated 07/20/19 @ 00:[address] Suresh Shetty MD) HTN (hypertension) (Chronic) Medical History: Medical History (Last Updated 07/20/19 @ 00:[address] Suresh Shetty MD) HTN (hypertension) (Chronic) I10 Allergies tiotropium [From Spiriva with HandiHaler] Allergy (Verified 05/17/20 11:18) Swelling Home Medications: Ambulatory Orders Medication Instructions Recorded Albuterol Inhaler [Ventolin Hfa] 2 puff INHALATION Q4H PRN PRN 01/22/19 Atorvastatin Calcium [Lipitor] 20 mg PO QHS 01/22/19 Budesonide/Formoterol Fumarate 2 puff INHALATION BID PRN PRN 01/22/19 [Symbicort 80-4.5 Mcg Inhaler] Carvedilol 12.5 mg PO BID 01/22/19 Duloxetine Hcl [Cymbalta] 60 mg PO DAILY 01/22/19 Nitroglycerin (INPATIENT USE) 0.4 mg SUBLINGUAL PRN PRN 01/22/19 [Nitrostat] Tamsulosin HCl 0.4 mg PO DAILY 05/17/20 Surgical History: - - Patient denies any surgical history. Psychiatric History: Depression Smoking Status: Current every day smoker - *Family History Maternal History Items: - - Patient denies knowledge of maternal medical history. Paternal History Items: Heart Disease Review of Systems Constitutional: Denies: Chills, Fever, Malaise, Weakness, Weight Change Eyes: Denies: Blurred vision HEENT: Denies: Head Aches, Sinus Congestion, Sinus Drainage Cardiovascular: Denies: Chest Pain, Palpitations Respiratory: Denies: Cough, Shortness of Breath, Shortness of breath at rest, Sputum production Gastrointestinal: Denies: Abdominal Pain, Nausea, Vomiting Genitourinary: Denies: Dysuria Musculoskeletal: Denies: Joint Pain, Joint Tenderness Skin: Denies: Rash, Wounds Neurological: Reports: Confusion. Denies: Balance problems, Blurred vision, Change in Speech, Slurred speech, Focal weakness, Numbness, Tingling Psychiatric: Denies: Anxiety, Depression, Homicidal Ideations, Suicidal Ideations Hematologic/ Lymphatic: Denies: Easy Bruising, Easy Bleeding VTE Information - Inpt Only VTE Present on Admission: No VTE Pharm Prophylaxis ordered?: Yes - Physical Exam Vitals/I&O's: Vital Signs Temp Pulse Resp BP Pulse Ox 97.7 F L 56 L 20 H 205/89 H 97 05/17/20 11:39 05/17/20 12:33 05/17/20 12:33 05/17/20 12:33 05/17/20 12:33 Oxygen Flow Rate (L/min) 2 Oxygen Delivery Method Nasal Cannula Weight: 147 lb 11.355 oz Body Mass Index (BMI) 24.5 Finger Stick Blood Glucose 111 General: Alert, Confused, Disoriented HEENT: Atraumatic, PERRLA, EOMI, Normocephalic Oral: Dry Mucosa Neck: Supple, No JVD, Negative Carotid Bruits Lungs: - - diminished breath sounds bibasally, with few crackles in mid and lower lung jacinto. On 2L of oxygen Cardiovascular: Regular Rhythm, Normal S1, Normal S2, No murmurs, Bradycardic Abdomen: Bowel Sounds Present, Soft, Non Tender Extremities: No clubbing, No cyanosis, No edema, Capillary Refill Less than 3 Seconds Skin: No rashes, No breakdown Musculoskeletal: No Tenderness to Palpation of Joints or Extremities Neurological: Cranial nerves II-XII grossly intact, Motor Exam 5/5 strength throughout, Muscle tone normal, Sensory exam intact to light touch and pain, Coordination normal, - - patient confused. NIHSS is 1, for mild to moderate aphasia Psych/Mental Status: Flat Affect, Alert and oriented to time, place, person, mood and affect Laboratory Results 05/17/20 11:20: WBC 4.9, RBC 3.24 L, Hgb 10.4 L, Hct 31.9 L, MCV 98.5 H, MCH 32.1 H, MCHC 32.6, RDW Std Deviation 49.2 H, RDW Coeff of Kylie 13.7, Plt Count 93 L, MPV 9.2, Immature Gran % (Auto) 0.400, Neut % (Auto) 49.8, Lymph % (Auto) 34.3, Newton % (Auto) 10.6 H, Eos % (Auto) 4.1, Baso % (Auto) 0.8, Absolute Neuts (auto) 2.5, Absolute Lymphs (auto) 1.69, Nucleated RBC % 0, Platelet Estimate MOD DEC 05/17/20 11:20: PT 15.9 H, INR 1.3, APTT 36.3 H 05/17/20 11:20: Sodium 133 L, Potassium 4.1, Chloride 103, Carbon Dioxide 25.0, Anion Gap 5, BUN 37 H, Creatinine 1.97 H, Estim Creat Clear Calc 29.92, Est GFR (MDRD) Af Amer 43 L, Est GFR (MDRD) Non-Af 36 L, BUN/Creatinine Ratio 18.8, Glucose 89, Calcium 8.2 L, Troponin I < 0.[address] 05/17/20 11:10 IMPRESSION: Chronic involutional changes of the brain. N.B. : The above information has been verbally conveyed by Med Srinivasan MD to Chase Andersen on 05/17/2020 11:22:18 (ET). Electronically Signed: Med Srinivasan MD at 11:23 EST , Service support , ADDENDUM: 05/17/20 1130 IMPRESSION: Chronic involutional changes of the brain. N.B. : The above information has been verbally conveyed by Med Srinivasan MD to Chase Andersen on 05/17/2020 11:22:18 (ET). Electronically Signed: Med Srinivasan MD at 11:23 EST , Service support , Head/Neck CTA 05/17/20 11:11 IMPRESSION: 1. Mild (20%) carotid stenosis bilaterally. 2. Patent vertebral arteries. 3. No intracranial stenosis or aneurysm. N.B. : The above information has been verbally conveyed by Keron Barcenas MD to Chase Andersen MD, on 05/17/2020 12:07:56 (ET). Electronically Signed: Keron Barcenas MD at 12:09 EST Tel , Service support , ADDENDUM: 05/17/20 1216 IMPRESSION: 1. Mild (20%) carotid stenosis bilaterally. 2. Patent vertebral arteries. 3. No intracranial stenosis or aneurysm. N.B. : The above information has been verbally conveyed by Keron Barcenas MD to Chase Andersen MD, on 05/17/2020 12:07:56 (ET). Electronically Signed: Keron Barcenas MD at 12:09 EST Tel , Service support , Chest X-Ray 05/17/20 11:50 IMPRESSION: Emphysema without pneumonia or atelectasis Electronically Signed: Keron Barcenas MD at 12:12 EST Tel , Service support , Current Medications Labetalol HCl (Labetalol (Prefilled) 20 Mg/4 Ml) 20 mg IV X1 PRN PRN Reason: BLOOD PRESSURE Assessment/Plan All Active Problems (Last Updated 07/20/19 @ 00:[address] Suresh Shetty MD) Colitis (Resolved) Bradycardia with 41-50 beats per minute (Acute) Altered mental status (Acute) Syncope and collapse (Acute) End stage renal disease (Acute) Syncope (Acute) 70 y/o admitted with a complaint of left sided facial droop and left sided weakness. Symptoms subsequently resolved. #TIA * admit to PCU with telemetry * NIHSS was only 1 at time of review, for mild to moderate aphasia * CT of the brain was negative for any acute intracranial pathology * CTA of the head and neck showed mild <20% stenosis of the carotids bilaterally and patent vertebral arteries * Patient already on aspirin and Plavix. Will continue. * Consult PT OT. Consult speech therapy. Keep n.p.o. until he passes bedside speech evaluation. * MRI of the brain ordered. 2D echo ordered. * Check lipid panel and A1c. * Consult [facility] neurology once MRI results for review. * #COPD: * Chest x-ray showed emphysema. * Patient was on 2 L of oxygen at time of review though he tells me he does not wear oxygen at home. * Continue with breathing treatments with bronchodilators. * Titrate oxygen to maintain saturation above 90%. * #Lipidemia: On statin. #Hypertension: On carvedilol. Hold carvedilol for now to allow for permissive hypertension in the case of probable stroke. Sinus bradycardia: Heart rate was in the high 50s. He is asymptomatic. Continue carvedilol and monitor heart rate. #BPH: On Flomax DV prophylaxis; SCDs. Code status: Unable to discuss CODE STATUS as patient is confused and answers most questions with I do not know. OBSV E&M: 91130 Initial observation care L3
--- NOTE | 2020-05-17 14:32 | MRI_ITS ---
STUDY: MRI BRAIN WITHOUT CONTRAST REASON FOR EXAM: Male, 70 years old. tia -- slurred speech, left side weakness, trouble walking TECHNIQUE: Standardized multiplanar fat and water weighted pulse sequences were obtained. COMPARISON: CT earlier today, MRI 07/20/2019 FINDINGS: There is severe cerebral atrophy with widening of the extra-axial spaces and ventricular dilatation. There are multiple confluent white matter hyperintensities, distributed throughout the deep white matter tracts of the cerebral hemispheres, consistent with severe chronic white matter ischemic changes. There is no evidence for recent intracranial ischemia or other cause of cytotoxic edema on diffusion weighted imaging (DWI). Normal T2* images of the brain without demonstrated susceptibility artifact. There is no demonstrated hemosiderin stain. Normal bilateral basal ganglia. Normal thalami. There is no extra-axial fluid accumulation. Normal flow voids within the major intracranial circulation suggesting patency by spin echo criteria. Normal sella turcica, pituitary gland, infundibular stalk, optic chiasm and hypothalamus. Normal tectal plate and pineal gland. Normal midbrain, miah and medulla. Normal cerebellum. Normal basal cisterns. Normal bilateral temporal bones. Normal bilateral internal auditory canals. No demonstrated orbital abnormality, within the constraints of a routine brain study. Normal visualized paranasal sinuses. Normal calvarium and skull base. Normal visualized soft tissue structures. Normal visualized upper cervical spine. MRI/Brain without Contrast IMPRESSION: Involutional changes of the brain, as described above. No acute infarct. Electronically Signed: Keron Barcenas MD at 17:15 EST Tel , Service support ,
[2020-05-17] MEDS: Albuterol 2.5 MG/3 ML VIAL.NEB. INHALATION (15:26)
--- NOTE | 2020-05-17 16:31 | CHAPLAIN ---
Type of Pastoral Visit ___ Initial Visit ___ Follow-up Visit ___ On-call Visit ___ General Patient Visit ___ Spiritual Assessment ___ Family Conference ___ Bereavement _x__ Rapid Response ___ Code Blue _x__ Other (describe below) Pastoral Care Referral From _x__ Patient ___ Family ___ Nurse ___ Physician ___ Public Relations Supervisor ___ Plum Packer ___ Other (describe below) Sacrament/Intervention ___ Active listening ___ Anointing ___ Uatsdin ___ Bereavement ___ Communion ___ Nataly exploration ___ ___ Life review ___ Prayer ___ Reconciliation ___ Sacrament of Sick ___ Supportive presence ___ Wedding _x__ Other (describe below) Pastoral Comments responded to the stroke alert; pt was being evaluated and then sent to CT scan; no family available and SW was on scene so this poultry field service technician did not stay; patient was a referral after admission to PCU; went to room but patient was not in the room at that time; left a calling card for patient
[2020-05-18] VITALS (11 sets, daily range): BP systolic 144–184; BP diastolic 60–104; PULSE 66–73; RESP 14–22; TEMP 36.3–36.6; O2SAT 94–99
[2020-05-18 06:00] LABS: Absolute Lymphocyte Count 1.94 X10^3/uL (0.83-4.51); Absolute Neutrophil Count 3.1 X10^3/uL (2.0-7.7); Basophil# 0.06 X10^3/uL; Eosinophil# 0.19 X10^3/uL; Eosinophils% 3.2 % (0-5); Hematocrit 36.8 % (40-54); Hemoglobin 12.2 g/dL (13.0-16.5); Lymphocyte # 1.94 X10^3/ul (4.0); Lymphocyte % 32.8 % (19-41); Mean Corp Hgb Conc 33.2 g/dL (32-36); Mean Corpuscular Volume 96.6 fL (80-94); Mean Platelet Vol. 9.8 fl (6.2-12.0); Monocyte# 0.59 X10^3/uL; NRBC Flagged by Analyzer 0 % (0-5); Neutrophil # 3.13 X10^3/uL (2.7-7.7); Neutrophil % 52.8 % (47-70); Platelet Count 125 K/mm3 (150-450); RBC Distribution Width CV 13.6 % (11.6-14.6); RBC Distribution Width SD 48.7 fl (35.1-43.9); Red Blood Count 3.81 M/mm3 (4.6-6.2); White Blood Count 5.9 K/mm3 (4.4-11.0)
[2020-05-18 06:26] LABS: Anion Gap 8 (5-15); BUN 35 mg/dL (7-18); BUN/Creat Ratio 18.7 RATIO (10-20); Chloride 107 mmol/L (98-107); Cholesterol 116 mg/dL (200); Creatinine, Serum 1.87 mg/dL (0.70-1.30); EST Glomerular Filtration Rate 38 mL/min (>60); Est Glom Filt Rate - Afr Amer 46 mL/min (>60); Estimated Creatinine Clearance 31.52 ml/min; Glucose 79 mg/dL (74-106); High Density Lipoprotein 59 mg/dL; Potassium 3.9 mmol/L (3.5-5.1); Sodium Level 137 mmol/L (136-145); Triglycerides 87 mg/dL; Very Low Density Lipoprotein 17 mg/dL (5-40)
--- NOTE | 2020-05-18 07:00 | ECHOD_ITS ---
Version 2 Reason For Study: TIA/CVA Procedure This was a 2D Doppler, Color Flow transthoracic echocardiogram. Exam performed portable in patient room. Left Ventricle Normal LV size. The estimated ejection fraction is 50-55 %. No evidence for diastolic dysfunction. No regional wall motion abnormalities noted. Right Ventricle Normal RV size. Normal systolic function. Atria Normal left atrium. Normal right atrium. No doppler evidence for ASD. Bubble contrast study reveals a few bubbles on the L side. However the RA and RV are full opacified by the bubble contrast in the first images captured. So it unclear if this appearance of bubbles is early or late. Probable PFO. Probable patent foramen ovale. Mitral Valve There is no mitral valve stenosis. Trivial mitral valve insufficiency. Tricuspid Valve There is no tricuspid stenosis. No tricuspid valve insufficiency. Unable to estimate RV systolic pressure due to inadequate jet, pulmonary artery pressure probably normal. Aortic Valve Trisinus/trileaflet aortic valve. There is no aortic stenosis. Mild (1+) aortic valve insufficiency. Pulmonic Valve There is no pulmonic valvular stenosis. No pulmonic valve insufficiency. Great Vessels Normal aortic root. Pericardium/Pleural No pericardial effusion. Medication Performed a rapid injection of agitated mix of 9 cc saline and 1cc air to assess for atrial septal defect. MMode/2D Measurements & Calculations LVIDd: 4.1 cm IVSd: 1.0 cm Ao root diam: 3.7 cm LVIDs: 3.0 cm LVPWd: 1.1 cm RVDd: 3.4 cm FS: 25.5 % LAV(MOD-bp): 25.3 ml LVAd ap4: 23.3 cm2 SV(MOD-sp4): 25.1 ml LAV(MOD-bp) Indexed: 14.7 ml/m2 EDV(MOD-sp4): 56.2 ml LAV(MOD-sp2): 29.9 ml EDV(sp4-el): 58.3 ml LAV(MOD-sp4): 21.4 ml LVAs ap4: 14.9 cm2 ESV(MOD-sp4): 31.1 ml ESV(sp4-el): 30.7 ml EF(MOD-sp4): 44.6 % EF(sp4-el): 47.2 % SV(sp4-el): 27.5 ml LA A4 area: 10.9 cm2 LA dimension(2D): 4.1 cm RA A4 area: 11.8 cm2 Time Measurements MV dec time: 0.26 sec Doppler Measurements & Calculations MV E max edison: 42.4 cm/sec Lat Peak E' Edison: 3.0 cm/sec Med Peak E' Edison: 4.7 cm/sec MV A max edison: 65.3 cm/sec E/E' lat: 14.0 E/E' med: 9.0 MV E/A: 0.65 Ao V2 max: 105.2 cm/sec AI max edison: 454.6 cm/sec LV V1 max: 75.8 cm/sec Ao max P.4 mmHg AI max P.7 mmHg LV V1 max P.3 mmHg AI dec slope: 155.3 cm/sec2 AI P1/2t: 857.3 msec Interpretation Summary The estimated ejection fraction is 50-55 %. No evidence for diastolic dysfunction. Trivial mitral valve insufficiency. Mild (1+) aortic valve insufficiency. Probable patent foramen ovale. Ordering Physician: Rosa Ruiz Referring Physician: ELIGIO HANSON Performed By: Genesis Barrios, JAMAAL, RVT
[2020-05-18] MEDS: Albuterol 2.5 MG/3 ML VIAL.NEB. INHALATION ×2 (07:27→13:26)
--- NOTE | 2020-05-18 09:07 | TELEMED_ITS ---
[facility] Telemed has confirmed receipt of a request for visit. This document confirms receipt of the order initiating the consult. To find the results of the consultation, please view the patient's reports for the scanned Telemed Consult.
[2020-05-18] MEDS: DULoxetine Hcl 60 MG Capsule PO (12:43)
[2020-05-18] MEDS: Carvedilol 12.5 MG Tablet PO (12:43)
[2020-05-18] MEDS: Aspirin 81 MG TAB.CHEW PO (12:43)
--- NOTE | 2020-05-18 13:15 | CASEMGMT ---
Assessment- SW completed assessment with patient, however SW did notice in chart patient has Dementia so SW also talked with patient's . Living situation- Patient lives with his in a 1 story home with 3 entry steps. PCP: Scott Steven-[facility] Specialists: Patient sees a Oxyhydrogen Welder, Motor Mechanic, and Supervisor Sewing Room. Patient's did not know their names at the moment. Pharmacy: [facility] DME: Shower chair, walker, cane, bedside commode, hospital bed, lift chair, home O2 at 2L continuous from [employer], wheel chair, and transport chair. ADL's/IADL's: Patient uses a walker to get around- per his his walk is never steady and he drags his right foot, he gets assist with dressing, and he is incontinent. does all of the household work, bills, and medications. However, patient currently has home health and the nurse is setting up his meds. Patient's does the driving. Past SNF/rehab: [facility] Past HH: [facility] long-term, PT, and OT LW: None POA: None Plan: SW originally completed assessment with patient. However SW noted patient has Dementia. SW spoke with patient's and it was a good thing as patient's answers were incorrect for most things. For instance, he said he drives and is independent with most adls. As you can see above that is inaccurate. However, patient's said the plan is for him to come home unless he cannot walk. SW told her therapy saw him and he walked 30, but he was very unsteady. She said his walk is never steady that is normal for him. They currently have [facility] home health and she would like that resumed. Patient's daughter will transport him home as long as it is before 6p as she goes to work. Kerri ROMERO MSW
--- NOTE | 2020-05-18 13:20 | CASEMGMT ---
Call from [facility] and they state that pt is active with them for SN, PT/OT. Resumption of Care order placed and speech therapy added at this time per speech recommendation. Green sheet left on chart for [facility] at this time. Brandy KIDD CM
--- NOTE | 2020-05-18 13:52 | CASEMGMT ---
SW did not complete a PHQ 9 with patient as he has Dementia and did not answer his assessment questions accurately. Kerri ROMERO MSW
--- NOTE | 2020-05-18 14:56 | PCM.PN.HOSP ---
Subjective: Patient seen and examined. He had no complaints this morning. He now tells me that he thinks he remembers what happened and that he got lightheaded nearly passed out. He does not think he had any focal weakness. Review of symptoms otherwise negative. He has remained hemodynamically stable. Vitals/I&O's: Vital Signs Temp Pulse Resp BP Pulse Ox 97.6 F L 66 14 178/100 H 95 05/18/20 14:50 05/18/20 14:50 05/18/20 14:50 05/18/20 14:50 05/18/20 14:50 Oxygen Flow Rate (L/min) 2 Oxygen Delivery Method Room Air Weight: 143 lb 15.39 oz Body Mass Index (BMI) 23.9 Finger Stick Blood Glucose 111 Intake and Output for Last 24 Hours 05/16/20 05/17/20 05/18/20 23:59 23:59 23:59 Intake Total 0 / 0 0 / 0 Output Total 150 / 150 325 / 325 Balance -150 / -150 -325 / -325 General: Alert, Cooperative, No apparent distress, Confused - alert and oriented x 2 HEENT: Atraumatic, PERRLA, EOMI, Normocephalic Oral: Moist Mucosa Neck: Supple, No JVD, Negative Carotid Bruits Lungs: Clear to auscultation, Normal air movement Cardiovascular: Regular rate, Regular Rhythm, Normal S1, Normal S2, No murmurs Abdomen: Bowel Sounds Present, Soft, Non Tender Extremities: No clubbing, No cyanosis, No edema, Capillary Refill Less than 3 Seconds Skin: No rashes, No breakdown Musculoskeletal: No Tenderness to Palpation of Joints or Extremities Lymphatic: No Cervical, Supraclavicular, or Inguinal Adenopathy Neurological: Cranial nerves II-XII grossly intact, Motor Exam 5/5 strength throughout, - - has ataxic gait on ambulation with assistance Psych/Mental Status: Normal Affect, Appropriate, Alert and oriented to time, place, person, mood and affect Microbiology Past 72 Hours 05/17/20 12:30 Mucosa - Nose SARS-CoV-2 Antigen (Rapid) - Final Laboratory Results 05/18/20 05:10: WBC 5.9, RBC 3.81 L, Hgb 12.2 L, Hct 36.8 L, MCV 96.6 H, MCH 32.0, MCHC 33.2, RDW Std Deviation 48.7 H, RDW Coeff of Kylie 13.6, Plt Count 125 L, MPV 9.8, Immature Gran % (Auto) 0.200, Neut % (Auto) 52.8, Lymph % (Auto) 32.8, [place] % (Auto) 10.0, Eos % (Auto) 3.2, Baso % (Auto) 1.0, Absolute Neuts (auto) 3.1, Absolute Lymphs (auto) 1.94, Nucleated RBC % 0 05/18/20 05:10: Sodium 137, Potassium 3.9, Chloride 107, Carbon Dioxide 22.0, Anion Gap 8, BUN 35 H, Creatinine 1.87 H, Estim Creat Clear Calc 31.52, Est GFR (MDRD) Af Amer 46 L, Est GFR (MDRD) Non-Af 38 L, BUN/Creatinine Ratio 18.7, Glucose 79, Calcium 9.0, Triglycerides 87, Cholesterol 116, LDL Cholesterol 40, VLDL Cholesterol 17, HDL Cholesterol [address] 05/17/20 11:10 IMPRESSION: Chronic involutional changes of the brain. N.B. : The above information has been verbally conveyed by Med Srinivasan MD to Chase Andersen on 05/17/2020 11:22:18 (ET). Electronically Signed: Med Srinivasan MD at 11:23 EST , Service support , ADDENDUM: 05/17/20 1130 IMPRESSION: Chronic involutional changes of the brain. N.B. : The above information has been verbally conveyed by Med Srinivasan MD to Chase Andersen on 05/17/2020 11:22:18 (ET). Electronically Signed: Med Srinivasan MD at 11:23 EST , Service support , Head/Neck CTA 05/17/20 11:11 IMPRESSION: 1. Mild (20%) carotid stenosis bilaterally. 2. Patent vertebral arteries. 3. No intracranial stenosis or aneurysm. N.B. : The above information has been verbally conveyed by Keron Barcenas MD to Chase Andersen MD, on 05/17/2020 12:07:56 (ET). Electronically Signed: Keron Barcenas MD at 12:09 EST Tel , Service support , ADDENDUM: 05/17/20 1216 IMPRESSION: 1. Mild (20%) carotid stenosis bilaterally. 2. Patent vertebral arteries. 3. No intracranial stenosis or aneurysm. N.B. : The above information has been verbally conveyed by Keron Barcenas MD to Chase Andersen MD, on 05/17/2020 12:07:56 (ET). Electronically Signed: Keron Barcenas MD at 12:09 EST Tel , Service support , Chest X-Ray 05/17/20 11:50 IMPRESSION: Emphysema without pneumonia or atelectasis Electronically Signed: Keron Barcenas MD at 12:12 EST Tel , Service support , Brain MRI 05/17/20 14:32 IMPRESSION: Involutional changes of the brain, as described above. No acute infarct. Electronically Signed: Keron Barcenas MD at 17:15 EST Tel , Service support , Current Medications Acetaminophen (Acetaminophen 325 Mg Tablet) 650 mg PO Q6H PRN PRN PRN Reason: Pain Score 1-10/Temp > 100.7 F Albuterol Sulfate (Albuterol 2.5 Mg/3 Ml Vial.Neb.) 2.5 mg INHALATION Q4H PRN PRN PRN Reason: Bronchodialation Albuterol Sulfate (Albuterol 2.5 Mg/3 Ml Vial.Neb.) 2.5 mg INHALATION Q6HWA.RT [facility] Last Admin: 05/18/20 13:26 Dose: 2.5 mg Documented by: Aspirin (Aspirin 81 Mg Tab.Chew) 81 mg PO DAILY@0800 [facility] Last Admin: 05/18/20 12:43 Dose: 81 mg Documented by: Atorvastatin Calcium (Atorvastatin Calcium 20 Mg Tablet) 20 mg PO QHS [facility] Last Admin: 05/17/20 22:06 Dose: Not Given Documented by: Carvedilol (Carvedilol 12.5 Mg Tablet) 12.5 mg PO BID [facility] Last Admin: 05/18/20 12:43 Dose: 12.5 mg Documented by: Duloxetine HCl (Duloxetine Hcl 60 Mg Capsule) 60 mg PO DAILY [facility] Last Admin: 05/18/20 12:43 Dose: 60 mg Documented by: Hydralazine HCl (Hydralazine 20 Mg/Ml Vial) 5 mg IV Q30M PRN PRN Reason: to maintain BP goals Sodium Chloride () 250 mls @ 15 mls/hr IV .[id number] PRN PRN Reason: Saline Flush Sodium Chloride () 250 mls @ 15 mls/hr IV .[id number] PRN PRN Reason: Additional IVPB Infusion Labetalol HCl (Labetalol (Prefilled) 20 Mg/4 Ml) 20 mg IV X1 PRN PRN Reason: BLOOD PRESSURE Labetalol HCl (Labetalol (Prefilled) 20 Mg/4 Ml) 10 - 20 mg IV Q10M PRN PRN PRN Reason: to Maintain BP Goals Nitroglycerin (Nitroglycerin (Inpatient Use) 0.4 Mg Tab.Subl) 0.4 mg SUBLINGUAL PRN PRN PRN Reason: chest pain Ondansetron HCl (Ondansetron 4 Mg/2 Ml Vial) 4 mg IV Q8H PRN PRN PRN Reason: NAUSEA/VOMITING Sodium Chloride (0.9% Saline Lock 10 Ml Syringe) 10 - 40 ml IV UD PRN PRN Reason: SALINE FLUSH Tamsulosin HCl (Tamsulosin Hcl 0.4 Mg Capsule) 0.4 mg PO DAILY@1730 [facility] Last Admin: 05/17/20 17:13 Dose: Not Given Documented by: STROKE Vital Signs/Narrative: Vital Signs Temp Pulse Resp BP Pulse Ox 05/18/20 14:50 97.6 F L 66 14 178/100 H 95 05/18/20 13:26 22 H Medical Necessity - Tobacco Use Smoking Status: Current every day smoker Assessment/Plan All Active Problems (Last Updated 07/20/19 @ 00:[address] Suresh Shetty MD) Colitis (Resolved) Bradycardia with 41-50 beats per minute (Acute) Altered mental status (Acute) Syncope and collapse (Acute) End stage renal disease (Acute) Syncope (Acute) 70 y/o admitted with a complaint of left sided facial droop and left sided weakness. Symptoms subsequently resolved. #TIA MRI of the brain done today is negative for any evidence of stroke CT of the brain was negative for any acute intracranial pathology CTA of the head and neck showed mild <20% stenosis of the carotids bilaterally and patent vertebral arteries Patient was not on aspirin or Plavix apparently as was reported per his med rec on admission. He was therefore started on low-dose aspirin 81 mg daily. Neurology consulted and neurology thinks that patient symptoms are likely due to probable normal pressure hydrocephalus and or dementia. Recommend close follow-up with neurology on outpatient basis. 2D echo done. Report pending. Lipid panel was within normal limits. PT OT on board. Fall precautions. #COPD: Chest x-ray showed emphysema. Patient was on 2 L of oxygen at time of review though he tells me he does not wear oxygen at home. however later confirmed he does wear oxygen at home. Continue with breathing treatments with bronchodilators. Titrate oxygen to maintain saturation above 90%. #Hyperlipidemia: On statin. Lipid panel was WNL #Hypertension: On carvedilol. Sinus bradycardia: resolved. #CKD 3: Cr is 1.87;w as 1.97 on admission. will monitor #BPH: On Flomax DV prophylaxis; SCDs. Disposition: discharge home with home health care. Inpatient E&M: 85624 Subs Hosp L2
--- NOTE | 2020-05-18 15:02 | DCINST_ITS ---
You will use the following diet at home:: Cardiac Your food should be the consistency of: Regular Your liquids should be the consistency of: Regular/Thin Discharge Activity: Return to Normal Activity Weight Bearing Status: Weight bearing as tolerated Call your doctor if you observe: Fever of 101 or Higher, Shortness of breath, Swelling in the ankles, Chest pain, Increased palpitations (irregular heartbeat) Instructions: What Is a TIA? Allergies/Adverse Reactions: Allergies tiotropium [From Spiriva with HandiHaler] Allergy (Verified 05/17/20 11:18) Swelling Medications to take at Discharge Albuterol Inhaler [Ventolin Hfa] 2 puff INHALATION Q4H PRN PRN 01/22/19 Atorvastatin Calcium [Lipitor] 20 mg PO QHS 01/22/19 Budesonide/Formoterol Fumarate [Symbicort 80-4.5 Mcg Inhaler] 2 puff INHALATION BID PRN PRN 01/22/19 Carvedilol 12.5 mg PO BID 01/22/19 Duloxetine Hcl [Cymbalta] 60 mg PO DAILY 01/22/19 Nitroglycerin (INPATIENT USE) [Nitrostat] 0.4 mg SUBLINGUAL PRN PRN 01/22/19 Tamsulosin HCl 0.4 mg PO DAILY 05/17/20 Aspirin [Aspirin, Baby] 81 mg PO DAILY@0800 #30 tab.chew 05/18/20 The following prescriptions were given: Aspirin [Aspirin, Baby] 81 mg PO DAILY@0800 #30 tab.chew Transmission Status: Pending to [id number] Primary Care Physician: Edi Steven PA [Primary Care Provider] - Please follow up with your Primary Care Physician in: 1-2 weeks Test Results: Test results from this visit will be discussed in further detail at your follow- up appointment, if applicable. Please Follow Up With: Edward Chopra MD When: 1-2 weeks Proposed Discharge Date: 05/18/20
--- NOTE | 2020-05-18 15:18 | PCM.DC.SUM ---
Discharge Date and Diagnosis Date of Admission: 05/17/20 Date of Discharge: 05/18/20 - Primary Discharge Diagnosis Acute Problems: left sided weakness, left facial droop, slurred speech. - Secondary Discharge Diagnosis Chronic Problems: Chronic Problems (Last Updated 07/20/19 @ 00:[address] Suresh Shetty MD) HTN (hypertension) (Chronic) Hospital Course and Treatment Imaging Results: 05/18/20 07:00 Echo Complete [ECHO] Routine neurology- SOC teleneurology Operations: None Procedures: 2-D Echocardiogram Summary of Care Provided: The patient is a 70 year old M with a past medical history as outlined including a history of TIA, bradycardia, hypertension and colitis who was admitted through the ED on 05/17/2020 with a complaint of left-sided facial droop, left arm and leg weakness as well as slurred speech and trouble ambulating. He was therefore brought into the ED his last known well was at 9 PM yesterday. He woke up with the symptoms at around 10:15 AM today according to the ED notes. At the time I reviewed patient, he was alert but told me he did not know why he was brought here. His answer to most questions was I do not know. In the ED, vitals show temperature of 97.4 Fahrenheit with blood pressure of 184/105, pulse rate of 58 and respiratory rate of 19. He was saturating at 99% on 2 L of oxygen. Labs showed creatinine of 1.97 and initial troponin was negative. CBC showed hemoglobin of 10.4 with WBC of 4.9 platelets of 93. ET of the brain showed chronic involutional changes and CTA of the head and neck showed mild 20% carotid stenosis bilaterally with patent vertebral arteries and no intracranial stenosis or aneurysm. NIHSS was 6 on admission in the ED. He was admitted to be managed for TIA. He was started on aspirin and plavix as well as high intensity statin. MRI of the brain done was negative for any stroke, and showed chronic involutional changes of the brain, with no acute infarct. SOC neurology was consulted and felt that his symptoms were likely due to dementia versus normal pressure hydrocephalus and recommended outpatient close neurology follow-up with PT OT evaluation for this diagnosis to be confirmed. Patient was evaluated by physical therapy. He did have ataxia but said this was not new when he had just been discharged from halfway 2 weeks prior to admission. Was therefore discharged home with home health on 05/18/2020. He was discharged on p.o. aspirin 81 mg daily. He is follow-up with his primary care doctor and was referred to neurology. Patient was seen and examined prior to discharge. Please refer to progress notes dated 05/18/2020 for physical examination. [] - Physical Exam Vitals/I&O's: Vital Signs Temp Pulse Resp BP Pulse Ox 97.6 F L 66 14 178/100 H 95 05/18/20 14:50 05/18/20 14:50 05/18/20 14:50 05/18/20 14:50 05/18/20 14:50 Oxygen Flow Rate (L/min) 2 Oxygen Delivery Method Room Air Weight: 143 lb 15.39 oz Body Mass Index (BMI) 23.9 Finger Stick Blood Glucose 111 Intake and Output for Last 24 Hours 05/16/20 05/17/20 05/18/20 23:59 23:59 23:59 Intake Total 0 / 0 0 / 0 Output Total 150 / 150 325 / 325 Balance -150 / -150 -325 / -325 Microbiology Past 72 Hours 05/17/20 12:30 Mucosa - Nose SARS-CoV-2 Antigen (Rapid) - Final Laboratory Results 05/18/20 05:10: WBC 5.9, RBC 3.81 L, Hgb 12.2 L, Hct 36.8 L, MCV 96.6 H, MCH 32.0, MCHC 33.2, RDW Std Deviation 48.7 H, RDW Coeff of Kylie 13.6, Plt Count 125 L, MPV 9.8, Immature Gran % (Auto) 0.200, Neut % (Auto) 52.8, Lymph % (Auto) 32.8, [place] % (Auto) 10.0, Eos % (Auto) 3.2, Baso % (Auto) 1.0, Absolute Neuts (auto) 3.1, Absolute Lymphs (auto) 1.94, Nucleated RBC % 0 05/18/20 05:10: Sodium 137, Potassium 3.9, Chloride 107, Carbon Dioxide 22.0, Anion Gap 8, BUN 35 H, Creatinine 1.87 H, Estim Creat Clear Calc 31.52, Est GFR (MDRD) Af Amer 46 L, Est GFR (MDRD) Non-Af 38 L, BUN/Creatinine Ratio 18.7, Glucose 79, Calcium 9.0, Triglycerides 87, Cholesterol 116, LDL Cholesterol 40, VLDL Cholesterol 17, HDL Cholesterol 59 Current Medications Acetaminophen (Acetaminophen 325 Mg Tablet) 650 mg PO Q6H PRN PRN PRN Reason: Pain Score 1-10/Temp > 100.7 F Albuterol Sulfate (Albuterol 2.5 Mg/3 Ml Vial.Neb.) 2.5 mg INHALATION Q4H PRN PRN PRN Reason: Bronchodialation Albuterol Sulfate (Albuterol 2.5 Mg/3 Ml Vial.Neb.) 2.5 mg INHALATION Q6HWA.RT [facility] Last Admin: 05/18/20 13:26 Dose: 2.5 mg Documented by: Aspirin (Aspirin 81 Mg Tab.Chew) 81 mg PO DAILY@0800 [facility] Last Admin: 05/18/20 12:43 Dose: 81 mg Documented by: Atorvastatin Calcium (Atorvastatin Calcium 20 Mg Tablet) 20 mg PO QHS [facility] Last Admin: 05/17/20 22:06 Dose: Not Given Documented by: Carvedilol (Carvedilol 12.5 Mg Tablet) 12.5 mg PO BID [facility] Last Admin: 05/18/20 12:43 Dose: 12.5 mg Documented by: Duloxetine HCl (Duloxetine Hcl 60 Mg Capsule) 60 mg PO DAILY [facility] Last Admin: 05/18/20 12:43 Dose: 60 mg Documented by: Hydralazine HCl (Hydralazine 20 Mg/Ml Vial) 5 mg IV Q30M PRN PRN Reason: to maintain BP goals Sodium Chloride () 250 mls @ 15 mls/hr IV .[id number] PRN PRN Reason: Saline Flush Sodium Chloride () 250 mls @ 15 mls/hr IV .[id number] PRN PRN Reason: Additional IVPB Infusion Labetalol HCl (Labetalol (Prefilled) 20 Mg/4 Ml) 20 mg IV X1 PRN PRN Reason: BLOOD PRESSURE Labetalol HCl (Labetalol (Prefilled) 20 Mg/4 Ml) 10 - 20 mg IV Q10M PRN PRN PRN Reason: to Maintain BP Goals Nitroglycerin (Nitroglycerin (Inpatient Use) 0.4 Mg Tab.Subl) 0.4 mg SUBLINGUAL PRN PRN PRN Reason: chest pain Ondansetron HCl (Ondansetron 4 Mg/2 Ml Vial) 4 mg IV Q8H PRN PRN PRN Reason: NAUSEA/VOMITING Sodium Chloride (0.9% Saline Lock 10 Ml Syringe) 10 - 40 ml IV UD PRN PRN Reason: SALINE FLUSH Tamsulosin HCl (Tamsulosin Hcl 0.4 Mg Capsule) 0.4 mg PO DAILY@1730 [facility] Last Admin: 05/17/20 17:13 Dose: Not Given Documented by: Discharge Diet: Low fat/ Low Cholesterol Discharge Activity: Return to Normal Activity Weight Bearing Status: Weight bearing as tolerated Call your doctor if you observe: Fever of 101 or Higher, Shortness of breath, Swelling in the ankles, Chest pain, Increased palpitations (irregular heartbeat) Home Medications: Medications to take at Discharge Albuterol Inhaler [Ventolin Hfa] 2 puff INHALATION Q4H PRN PRN 01/22/19 Atorvastatin Calcium [Lipitor] 20 mg PO QHS 01/22/19 Budesonide/Formoterol Fumarate [Symbicort 80-4.5 Mcg Inhaler] 2 puff INHALATION BID PRN PRN 01/22/19 Carvedilol 12.5 mg PO BID 01/22/19 Duloxetine Hcl [Cymbalta] 60 mg PO DAILY 01/22/19 Nitroglycerin (INPATIENT USE) [Nitrostat] 0.4 mg SUBLINGUAL PRN PRN 01/22/19 Tamsulosin HCl 0.4 mg PO DAILY 05/17/20 Aspirin [Aspirin, Baby] 81 mg PO DAILY@0800 #30 tab.chew 05/18/20 Following Prescriptions Were Given to Patient: Aspirin [Aspirin, Baby] 81 mg PO DAILY@0800 #30 tab.chew Transmission Status: Pending to [facility] Primary Care Physician: Edi Steven PA [Primary Care Provider] - Please follow up with your Primary Care Physician in: 1-2 weeks Please Follow Up With: Edward Chopra MD When: 1-2 weeks Patient Instructions: What Is a TIA? Disposition: Home with Home Health Minutes spent on discharge:: 40 Patient Condition:: Stable Medical Necessity - Tobacco Use Smoking Status: Current every day smoker Meaningful Use Info Meaningful Use Diagnoses (Choose all that apply): None applicable OBSV E&M: 67900 Observation care discharge
--- NOTE | 2020-05-18 15:54 | CASEMGMT ---
MARTI TOWNSEND NOTE: Pt being discharged home w/family. Call placed to [facility]. They were made aware pt being discharged today and that ST has been added onto resumption of HHC orders. Per Cindy @ [facility], they do not have ST available in pt's area and will be unable to provide this service. Call placed to pt's , Jada. She was made aware of the above. She was given the option to switch to another [facility] agency that could provide ST in addition to PT/OT. She states is agreeable to switching to another [facility] agency and she asks for this MARTI TOWNSEND to call her daughter, Stefanie, to discuss this with her. MARTI TOWNSEND spoke w/Stefanie and she is agreeable to this as well. Both /Stefanie agreeable to [facility]. Call placed to Na[facility] and referral made. She was made aware pt is discharging today. She states they are able to accept pt and SOC will be Thursday. /Stefanie both made aware. Order placed for [facility]: PT/OT, ST, and aide Call placed back to [facility]. She was made aware pt will be starting HHC w/[facility]. She states they will discharge pt from [facility]: Discharge date will be 05/17/20. Anne MENDIETA RN, CM
[2020-05-18] MEDS: amLODIPine 10 MG Tablet PO (15:55)
[2020-05-18] MEDS: hydrALAZINE 20 MG/ML Vial 10 MG IV (15:55)
== END 2020-05-18 16:57 | disposition home health service (06) | DRG 93 ==
LOC: ED 12:58 → PCU 13:31
PROVIDERS: Admitting Provider Student in an Organized Health Care Education/Training Program; Emergency Provider Emergency Medicine; PCP Physician Assistant; Visit Provider Student in an Organized Health Care Education/Training Program
DX: R29.810 Facial weakness (principal); R47.1 Dysarthria and anarthria; R53.1 Weakness; Z86.73 Personal history of transient ischemic attack (TIA), and cerebral infarction without residual deficits; Z79.02 Long term (current) use of antithrombotics/antiplatelets; I10 Essential (primary) hypertension; Z79.899 Other long term (current) drug therapy; F17.200 Nicotine dependence, unspecified, uncomplicated; I65.23 Occlusion and stenosis of bilateral carotid arteries; J44.9 Chronic obstructive pulmonary disease, unspecified; E78.5 Hyperlipidemia, unspecified; R00.1 Bradycardia, unspecified; N40.0 Benign prostatic hyperplasia without lower urinary tract symptoms; Z99.81 Dependence on supplemental oxygen
CPT/HCPCS: 70450; 70496; 70498; 70551; 71045; 80048; 80061; 84484; 85025; 85610; 85730; 87426; 92610; 93005; 93306; 94640; 94762; 97162; 97166; 97802; 99285; 99406; Q9967; A4216

== ENCOUNTER → 2020-06-12 12:45 | Outpatient (CLI) | payer MEDICARE, MEDICAID, SELFPAY ==
[2020-05-17 14:24] VITALS: BMI 23.9
--- NOTE | 2020-06-12 13:23 | ST.MBS ---
Modified Barium Swallow - Patient Information Study Date: 06/12/20 Study Time: 13:00 Direct Billable Minutes: 120 Total Minutes procedure & reportin Diagnosis: oropharyngeal dysphagia (R13.12) Referring Physician: Edi Steven Reason for Referral: Recurrent aspiration pneumonia with most recent event in last 3 months. Medical History: The patient is a 70 year old M with a past medical history including a history of TIA, bradycardia, hypertension and colitis. Pt recently admitted to [facility] ED on 05/17/2020 with a complaint of left-sided facial droop, left arm and leg weakness as well as slurred speech and trouble ambulating. MRI revealed no acute infarct. Patient present today for modified barium swallow study to determine presence of aspiration. Current Diet Ordered: regular textures (some cut up)/thin liquids Dentition: Edentulous Mental Status: Impaired Comment: history of vascular dementia Respiratory Status: Oxygenating on Room Air - Study Findings Consistencies: Thin Liquid, Obetz Thick Liquid, Honey Thick Liquid, Pudding, Cookie - Penetration-Aspiration Scale Penetration-Aspiration Scale: OBJECTIVE ASSESSMENT OF SWALLOW FUNCTION (QUANTITATIVE ? PER TRIAL): PENETRATION / ASPIRATION SCALE (SIERRA): 1 = does not enter airway 2 = enters airway/above vocal folds/ejected 3 = enters airway/above vocal folds/not ejected 4 = enters airway/contacts vocal folds/ejected 5 = enters airway/contacts vocal folds/not ejected 6 = enters airway/below vocal folds/ejected 7 = enters airway/below vocal folds/not ejected despite effort 8 = enters airway/below vocal folds/no effort - Penetration-Aspiration Scale Score Thin Liquid via teaspoon Result: 1= does not enter airway Thin Liquid via small single sip from cup Result: 1= does not enter airway Thin Liquid via large single sip from cup Result: 1= does not enter airway Thin Liquid via sequential sips from cup Result: 3= enters airways/above vocal folds/not ejected Pudding Result: 1= does not enter airway Cookie Result: 1= does not enter airway Thin Liquid via sequential sips from straw Result: 5= enters airways/contacts vocal folds/not ejected Thin Liquid via small single sip from cup Trial 2 Result: 2= enter airway/above vocal folds/ejected Thin Liquid via small single sip from cup Chin tuck Comment: View not clear and unable to determine effectiveness of strategy. - Oral Phase Labial Seal: No Labial Escape Tongue Control During Bolus Hold: Posterior escape of greater than half of bolus Bolus Preparation/Mastication: Disorganized chewing/mashing with solid pieces of bolus unchewed Bolus Transport/Lingual Motion: Slowed tongue motion Oral Residue: Residue collection on oral structures - Pharyngeal Phase Initiation of Pharyngeal Swallow: Bolus head in pyriforms Soft Palate Elevation: No bolus between soft palate and pharyngeal wall Laryngeal Elevation: Partial superior movement thyroid cart/partial apprx aryt-epig petiole Anterior Hyoid Excursion: Partial anterior movement Epiglottic Movement: Partial inversion Laryngeal Vestibule Closure at Height of Swallow: Incomplete; narrow column of air/contrast in laryngeal vestibule Pharyngeal Stripping Wave: Present - diminished Pharyngoesophageal Segment Opening: Parital distension and partial duration; parital obstruction of flow Tongue Base Retraction: Trace column of contrast between tongue base & post. pharyngeal wall Pharyngeal Residue: Collection of residue within or on pharyngeal structures - Diagnosis/Impression Diagnosis: mild-moderate oropharyngeal dysphagia (R13.12) Impression: The patient presented this date with history of recurrent aspiration pneumonia. The patient and patients daughter reported patients current diet is not modified with exception of food cut up into smaller pieces on occasion. Patient is edentulous but denies any particular food avoidance. The patient trialed thin liquid barium via single sips from cup, sequential sips from cup, and sequential sips from straw. At times patient found to jerk head back to assist with anterior to posterior transfer of bolus. The patient demonstrated penetration of thin liquid above the vocal cords that was not ejected when taking sequential sips and penetration to the vocal cords what was not ejected when taking sips via straw. Aspiration was not found during this assessment at this date and time. With trial of solid Mary Doone shortbread cookie, the patient demonstrated lengthy, disorganized mastication with greater than 1/2 bolus spilling back to pyriform sinuses prior to swallow initiation. PESTICIDE CONTROL INSPECTOR explained to the patient and daughter patients risk of asphyxiation if continuing to consume regular textures without cutting into minced pieces given patients edentulous status and untimely deglutition of solids. Both verbalized understanding. Recommending minced and moist textures along with thin liquids. Continued skilled ST intervention recommended. - Recommendations Diet: Mechanical Soft Textures, Thin Liquids Compensatory Strategies: Small Bites - one bite at a time, Small Sips - one sip at a time, No Straws, Slow Rate, Alternate bites/solids and sips/liquids, Sitting upright, Remain sitting upright for 30 minutes after PO intake, Assist with verbal cues to use recommended strategies Supervision: 1:1 Close Supervision Recommend Repeat Modified Barium Swallow: TBD Need for Skilled Speech Therapy Services: Yes - Recommending continued skilled ST Education Completed: 1. Described result of evaluation., 6. Family/caregivers demonstrate recommended strategies., 7. Pt requires further education on strategies & risks. - Status Active ST Patient: Active - Contact Information [facility] Speech Therapy:: Latricia Armando MA, CCC-PESTICIDE CONTROL INSPECTOR [address] [address] [email or web address]
== END ==
PROVIDERS: PCP Physician Assistant; Referring Provider Physician Assistant; Visit Provider Physician Assistant
DX: I69.393 Ataxia following cerebral infarction (principal); J44.9 Chronic obstructive pulmonary disease, unspecified; J96.11 Chronic respiratory failure with hypoxia
CPT/HCPCS: 74230; 92611

== ENCOUNTER 2020-10-05 15:16 | Emergency (ER) | payer MEDICARE, MEDICAID, SELFPAY ==
[2020-05-17 14:24] VITALS: BMI 23.9
[2020-10-05 15:17] VITALS: BP 197/130; PULSE 79; RESP 16; TEMP 36.4; O2SAT 93; BMI 22.9
--- NOTE | 2020-10-05 15:31 | CT_ITS ---
STUDY: CT ORBITS WITHOUT CONTRAST REASON FOR EXAM: Male, 70 years old. Hyperesthesia infraorbital nerve, diminished upward gaze due to blunt trauma RADIATION DOSAGE (If Supplied By Facility): CTDIvol = ( 29.38 ) mGy, DLP = ( 341.77 ) mGycm TECHNIQUE: The patient was scanned in a multi detector CT scanner. Transaxial imaging was performed without the administration of intravenous contrast material. Sagittal and coronal images were reconstructed. Individualized dose optimization techniques were used for this CT. COMPARISON: None. FINDINGS: Normal globes. Normal intraconal spaces. Normal bilateral extraocular muscles. No retrobulbar hematoma. Normal bilateral medial and inferior orbital vance. Normal bilateral maxillary bones. Old healed right zygomatic arch fracture. Trace mucosal thickening in the ethmoid and maxillary sinuses. Paranasal sinuses are otherwise clear. No evidence of trauma. Low-attenuation changes in the periventricular white matter consistent with microvascular ischemia. Moderate atrophy commensurate with the patient''s age. Extensive atherosclerotic calcification of the cavernous carotid arteries. Moderate right periorbital soft tissue swelling. CT/Orb Sella Post Fossa Ear w/o IMPRESSION: 1. Right preorbital soft tissue swelling, otherwise no acute trauma. 2. Intracranial microvascular ischemia and atrophy. Electronically Signed: Michaela Zuleta MD at 16:34 EDT Tel , Service support ,
--- NOTE | 2020-10-05 15:33 | EX.ED.GENINJ ---
HPI History of Present Illness Chief Complaint: Fall Informant: patient and spouse/S.O. Onset/Context/Timing Onset: Yesterday Mechanism/Context: Blunt Injury and Fall Location of pain/injuries: Right shoulder and - (Right periorbital trauma) Quality of Pain: Aching and - Current Severity: Mild Maximum Severity: Mild Worsened by: And palpation of right periorbital regionMovement of right shoulder Relieved by: Nothing Associated Symptoms Associated Symptoms: Negative for Parasthesias, Weakness, Loss of function, Inability to ambulate, Loss of consciousness and Amnesia Narrative Narrative: Patient is an elderly male who walks with a walker. Apparently while using the commode he fell. believes he struck his face with the handle of the commode. His last tetanus shot was approximately 1 year ago. There is no reported loss of conscious. He denies headache. He denies trouble with his vision. Presently he cannot see on the right side due to significant ecchymosis and swelling. He denies ringing in his ears. [place] decreased hearing. He is edentulous. He denies jaw pain. He has difficulty opening closing his mouth. He denies neck pain. He does report shoulder pain. Denies chest pain or shortness of breath. Denies upper or lower back pain. Denies abdominal pain. There is been no vomiting. There has been no change in color of urine. He has no other complaints. Tetanus Immunization: <5 years Prior similar symptoms: No Recent Illness/Hospitalization: No [facility] Medical History (Updated 10/05/20 @ 16:[address] Vinny Daniels MD) Alzheimer disease CVA (cerebral vascular accident) Dementia HTN (hypertension) Hyperthyroidism Home Medications albuterol sulfate 2 puff INHALATION Q4H PRN PRN 01/22/19 [History Last Taken Unknown] atorvastatin 20 mg PO QHS 01/22/19 [History Last Taken 05/16/20] budesonide-formoterol 2 puff INHALATION BID PRN PRN 01/22/19 [History Last Taken Unknown] carvedilol 6.25 mg PO BID 01/22/19 [History Last Taken 05/16/20] duloxetine 60 mg PO DAILY 01/22/19 [History Last Taken 05/16/20] nitroglycerin 0.4 mg SUBLINGUAL PRN PRN 01/22/19 [History Last Taken Unknown] Tamsulosin Hcl 0.4 mg PO DAILY 05/17/20 [History Last Taken 05/16/20] amlodipine 10 mg PO DAILY #30 tab 05/18/20 [Rx Last Taken Unknown] albuterol sulfate 10/05/20 [History Last Taken Unknown] Allergy/AdvReac Type Severity Reaction Status Date / Time tiotropium Allergy Swelling Verified 10/05/20 15:18 [From Spiriva with HandiHaler] Social History (Updated 10/05/20 @ 15:[address] Vinny Daniels MD) household members: spouse Smoking Status: Former smoker alcohol intake: current alcohol intake frequency: other substance use type: does not use ROS ROS ED Constitutional Constitutional ED: Denies chills, fever(s) or sweats Eyes Eyes: Reports other Details: Read HPI ; Denies blurry vision or change in vision ENT ENT ED: Denies ear pain, rhinorrhea or sore throat Cardiovascular Cardiovascular: Denies chest pain, palpitations or racing heartbeat Respiratory/Chest Respiratory/Chest: Reports cough and other Details: Per patient and cough is chronic ; Denies dyspnea or dyspnea on exertion Gastrointestinal Gastrointestinal: Denies abdominal pain, nausea or vomiting Genitourinary Genitourinary ED: Denies hematuria or urinary frequency Musculoskeletal Musculoskeletal: Denies arthralgias, back pain, myalgias or neck pain Integumentary Reports other Details: Right periorbital hematoma and laceration above the right brow and over the right maxillary region ; Denies abscess, Abrasions or rash Neurologic Neurologic: Denies headache(s), paresthesias or weakness Hematologic/Lymphatic Hematologic/Lymphatic: Reports other Details: Patient is on no anticoagulant and he is not taking Plavix or Brilinta. ; Denies easy bleeding or easy bruising EXAM Physical Exam Const Vital Signs: 10/05/20 15:17 10/05/20 15:45 Temperature 97.6 F L Temperature Source Temporal Pulse Rate 79 Respiratory Rate 16 Respiratory Effort Normal Non-Labored Respiratory Depth Normal Respiratory Pattern Normal Blood Pressure 197/130 H Blood Pressure Mean 152 Pulse Ox 93 Oxygen Delivery Method Room Air Room Air Positive well nourished and well developed General Appearance ED: well developed HEENT Denies TM's clear HEENT Narrative: There is no septal deviation hematoma. Patient is edentulous. There is no pain the patient over the right or left TMJ joint. There is hyperesthesia of the right infraorbital nerve. There may be limited upward gaze of the right eye. Patient is not complain of diplopia, however. He complains of pain over the right inferior orbital rim. Because of the discomfort unable to appreciate or push hard enough to appreciate a step-off. There is no clinical findings of basilar skull fracture. There is no septal deviation hematoma noted. trauma and tenderness Nose: Negative for septum abnormal Tympanic Membrane ED: Negative for TM's clear Eyes PERRL and EOMs intact bilaterally General Eye ED: Yes other Other Details: There is evidence of a lateral subconjunctival hemorrhage noted. Neck full ROM General: tenderness Chest Wall inspection of chest normal and palpation of chest normal Resp normal respiratory effort and clear to auscultation bilaterally Cardio regular rhythm, S1 normal heart sound, S2 normal heart sound and no murmurs Rate: regular rate GI normal to inspection, nondistended, normoactive bowel sounds, non-tender and non-distended Palpation: soft Back/Spine normal to inspection and no thoracic nor lumbar tenderness General Back: Negative for CVA tenderness Extremity Negative for normal to inspection Extremity Narrative: There is swelling and tenderness over the proximal right humerus. There is no pain the patient over the clavicle or AC joint. Axillary, median, radial and ulnar function intact. General Extremety ED: Yes tenderness Neuro CN's II-XII intact bilaterally, moves all extremities and no focal motor deficits Neuro Narrative: Per he is not normally oriented to time. Jovana Coma Scale: document GCS findings Spontaneous Obeys Commands Oriented 15 Sensorium / Orientation: alert, oriented to person and oriented to place; Negative for oriented to time Psych mental status grossly normal and thought process normal Skin no rashes or lesions noted Skin Narrative: Wounds were previously described Wounds: wounds noted MDM MDM MDM Narrative Medical decision making narrative: X-ray of the right shoulder was obtained to evaluate for proximal humeral fracture versus contusion and CT of the orbit was obtained because of concern for inferior orbital wall fracture with possible entrapment of the infraorbital nerve and or muscles. The forehead laceration is 3 cm. Since his laceration grade in 24 hours and has approximated well it was not sutured. There is also a 2 cm laceration over the right maxillary region. This has closed with no evidence of infection. Again since this is greater than 24 hours was not sutured. Radiography Diagnostic Testing: Radiology Impression CT Orbit Sella Inner 10/05/20 15:31 IMPRESSION: 1. Right preorbital soft tissue swelling, otherwise no acute trauma. 2. Intracranial microvascular ischemia and atrophy. Electronically Signed: Michaela Zuleta MD at 16:34 EDT Tel , Service support , Shoulder X-Ray 10/05/20 15:58 IMPRESSION: Normal x-ray examination of the shoulder. Electronically Signed: Michaela Zuleta MD at 16:37 EDT Tel , Service support , Three-view x-ray of the shoulder was reviewed by me and there is no evidence of fracture, subluxation or dislocation. There is no arthritic changes noted either there. There is no calcification of the supraspinatus tendon. Discharge Plan Triage Chief Complaint: Fall ED Provider: Vinny Daniels Dx/Rx/DC Orders Clinical Impression: Forehead laceration, Laceration of face, Periorbital hematoma of right eye, Subconjunctival hemorrhage of right eye, Contusion of right shoulder Instructions: ED Facial Contusion, ED Laceration, Old: Not Sutured, ED Subconjunctival Hemorrhage, ED Shoulder Contusion Prescriptions: No Action carvedilol 25 MG tablet 6.25 mg PO BID RF: 0 atorvastatin 20 MG tablet 20 mg PO QHS RF: 0 albuterol sulfate 1 INHALER inhaler 2 puff inhalation Q4H PRN PRN (Reason: Bronchodialation) RF: 0 duloxetine 30 MG capsule 60 mg PO DAILY RF: 0 budesonide-formoterol 10.2 GM HFA aerosol inhaler 2 puff INHALATION BID PRN PRN (Reason: SOB/wheezing) RF: 0 nitroglycerin 0.4 MG tablet, sublingual 0.4 mg sublingual PRN PRN (Reason: chest pain) RF: 0 Tamsulosin Hcl 0.4 MG capsule 0.4 mg PO DAILY RF: 0 amlodipine 10 MG tablet 10 mg PO DAILY Qty: 30 RF: 1 albuterol sulfate 2.5 mg /3 mL (0.083 %) Solution For Nebulization RF: 0 Primary Care Provider: Edi Steven Referrals: Edi Steven, PA [Primary Care Provider] - 1 Week if not improving Activity Restrictions/Additional Instructions: 1. Keep facial lacerations clean and dry 2. Apply ice to right orbit to help decrease swelling 3. Apply ice to right shoulder for swelling and discomfort
--- NOTE | 2020-10-05 15:58 | RAD_ITS ---
STUDY: X-RAY - RIGHT SHOULDER REASON FOR EXAM: Male, 70 years old. Injury/Pain TECHNIQUE: 4 view(s) of the shoulder. COMPARISON: None. FINDINGS: Normal glenohumeral articulation. Normal acromioclavicular joint. Normal acromion. Normal humeral head and visualized proximal humerus. The soft tissue structures are unremarkable. Normal visualized pulmonary apex. RAD/Shoulder min 2 Views IMPRESSION: Normal x-ray examination of the shoulder. Electronically Signed: Michaela Zuleta MD at 16:37 EDT Tel , Service support ,
== END 2020-10-05 17:23 | disposition home or self-care (01) ==
LOC: ED 15:35
PROVIDERS: Emergency Provider Emergency Medicine; PCP Physician Assistant
DX: S01.81XA Laceration without foreign body of other part of head, initial encounter (principal); H11.31 Conjunctival hemorrhage, right eye; S40.011A Contusion of right shoulder, initial encounter; I10 Essential (primary) hypertension; G30.9 Alzheimer's disease, unspecified; F02.80 Dementia in other diseases classified elsewhere, unspecified severity, without behavioral disturbance, psychotic disturbance, mood disturbance, and anxiety; Z87.891 Personal history of nicotine dependence; W18.12XA Fall from or off toilet with subsequent striking against object, initial encounter; Z79.899 Other long term (current) drug therapy
CPT/HCPCS: 70480; 73030; 99282

== ENCOUNTER 2020-10-22 16:16 | Emergency (ER) | payer MEDICARE, MEDICAID, SELFPAY ==
[2020-10-22 16:17] VITALS: BP 190/93; PULSE 73; RESP 22; TEMP 36.8; O2SAT 94; BMI 22.8
[2020-10-22 16:27] VITALS: BP 190/93; PULSE 73; PULSE 75; RESP 22; TEMP 36.8; O2SAT 92; O2SAT 94; O2SAT 98
--- NOTE | 2020-10-22 16:32 | EKG12_ITS ---
Test Reason : SOB Blood Pressure : / mmHG Vent. Rate : 071 BPM Atrial Rate : 071 BPM P-R Int : 136 ms QRS Dur : 088 ms QT Int : 412 ms P-R-T Axes : 043 034 046 degrees QTc Int : 447 ms Normal sinus rhythm Normal ECG Confirmed by JERZY SANDHU MD ([id number]), editor continuity and script JOSE CANNON ([id number]) on 10/24/2020 1:57:44 PM Referred By: NABOR
--- NOTE | 2020-10-22 16:43 | RAD_ITS ---
STUDY: X-RAY CHEST REASON FOR EXAM: Male, 70 years old. sob TECHNIQUE: AP portable COMPARISON: 05/17/2020 FINDINGS: There is mild prominence of interstitial markings in the lower lobes.. There is no demonstrated pleural abnormality. Normal size heart. Normal mediastinum and estefani. Normal visualized pulmonary arteries. Mildly calcified aortic arch and tortuous descending thoracic aorta. Dorsal spine and shoulders demonstrate mild degenerative change.. Normal visualized ribs, and clavicles. There is no demonstrated abnormality of the visualized soft tissue structures of the upper abdomen. No significant change since prior exam RAD/Chest 1 View (Portable) IMPRESSION: ASHD and minor chronic interstitial changes in the lower lobes. No acute disease Electronically Signed: Markos Marin MD at 17:39 EDT , Service support ,
[2020-10-22 16:46] LABS: Absolute Lymphocyte Count 1.37 X10^3/uL (0.83-4.51); Absolute Neutrophil Count 3.2 X10^3/uL (2.0-7.7); Basophil# 0.02 X10^3/uL; Basophil% 0.4 % (0-1); Eosinophil# 0.08 X10^3/uL; Eosinophils% 1.5 % (0-5); Hematocrit 35.4 % (40-54); Hemoglobin 11.1 g/dL (13.0-16.5); Lymphocyte # 1.37 X10^3/ul (0.83-4.51); Lymphocyte % 25.9 % (19-41); Mean Corp Hgb Conc 31.4 g/dL (32-36); Mean Corpuscular Hgb 31.6 pg (27.0-32.0); Mean Corpuscular Volume 100.9 fL (80-94); Monocyte# 0.65 X10^3/uL; Monocyte% 12.3 % (0-10); NRBC Flagged by Analyzer 0 % (0-5); Neutrophil # 3.16 X10^3/uL (2.7-7.7); Neutrophil % 59.7 % (47-70); Platelet Count 123 K/mm3 (150-450); RBC Distribution Width CV 13.6 % (11.6-14.6); RBC Distribution Width SD 50.6 fl (35.1-43.9); Red Blood Count 3.51 M/mm3 (4.6-6.2); White Blood Count 5.3 K/mm3 (4.4-11.0)
[2020-10-22 16:59] LABS: Anion Gap 6 (5-15); BUN 46 mg/dL (7-18); BUN/Creat Ratio 22.4 RATIO (10-20); Calcium,Total 9.1 mg/dL (8.5-10.1); Chloride 108 mmol/L (98-107); Creatinine, Serum 2.05 mg/dL (0.70-1.30); EST Glomerular Filtration Rate 34 mL/min (>60); Est Glom Filt Rate - Afr Amer 41 mL/min (>60); Estimated Creatinine Clearance 28.75 ml/min; Glucose 110 mg/dL (74-106); Potassium 3.7 mmol/L (3.5-5.1); Sodium Level 142 mmol/L (136-145)
[2020-10-22 18:26] LABS: Bacteria 0 SEEN /hpf (None Seen); Mucous, Urine 0 SEEN /hpf (<or=2+); Red Blood Cells-Urine 0 SEEN /hpf (0-5); Squamous Epithelial Cells - UA 0 SEEN /hpf (0-5); White Blood Cells 0 SEEN /hpf (0-5)
[2020-10-22 18:28] LABS: Color, Urine Yellow (Yellow); Glucose, Dipstick Normal (Normal); Ketone-Dipstick Negative (Negative); Leukocyte Esterase-Dipstick Negative /ul (Negative); Nitrite-Dipstick Negative (Negative); Occult Blood-Urine 10 /ul (Negative); Protein-Dipstick 100 mg/dl (Negative); Specific Gravity, Urine 1.015 (1.002-1.030); Urine Bilirubin Dipstick Negative (Negative); Urine Clarity Clear (Clear); Urine Urobilinogen Normal (Normal)
--- NOTE | 2020-10-22 18:43 | EX.ED.DYSGE1 ---
HPI History of Present Illness Chief Complaint: Shortness of Breath Detail of Chief Complaint: Shortness of breath, multiple falls, worsening dementia Informant: patient, family and EMS Narrative Narrative: Patient presents via EMS secondary to increased shortness of breath, multiple falls, recent UTI, worsening dementia. Patient does wear home oxygen reports mild increase in shortness of breath. He reports minimal cough. No fever or chills. He denies any pain at this time. Patient reportedly was recently on antibiotic for UTI. After speaking with family this was 3 weeks ago. Family states that patient has had increased back pain since a recent fall. They state when he gets dehydrated he gets more combative and falls frequently which they are experiencing now. Past medical history: Alzheimer's dementia CVA Hypertension High cholesterol COPD Chronic renal insufficiency [facility] Medical History Alzheimer disease CVA (cerebral vascular accident) Dementia HTN (hypertension) Hyperthyroidism Home Medications albuterol sulfate 2 puff INHALATION Q4H PRN PRN 01/22/19 [History Last Taken Unknown] atorvastatin 20 mg PO QHS 01/22/19 [History Last Taken 05/16/20] budesonide-formoterol 2 puff INHALATION BID PRN PRN 01/22/19 [History Last Taken Unknown] carvedilol 6.25 mg PO BID 01/22/19 [History Last Taken 05/16/20] duloxetine 60 mg PO DAILY 01/22/19 [History Last Taken 05/16/20] nitroglycerin 0.4 mg SUBLINGUAL PRN PRN 01/22/19 [History Last Taken Unknown] Tamsulosin Hcl 0.4 mg PO DAILY 05/17/20 [History Last Taken 05/16/20] amlodipine 10 mg PO DAILY #30 tab 05/18/20 [Rx Last Taken Unknown] albuterol sulfate 10/05/20 [History Last Taken Unknown] aspirin 81 mg PO DAILY 10/22/20 [History Last Taken Unknown] cholestyramine-aspartame [Cholestyramine Light] 4 g PO DAILY 10/22/20 [History Last Taken Unknown] cyanocobalamin (vitamin B-12) 1,000 mcg PO DAILY 10/22/20 [History Last Taken Unknown] ergocalciferol (vitamin D2) 50,000 unit PO QWEEK 10/22/20 [History Last Taken Unknown] Allergy/AdvReac Type Severity Reaction Status Date / Time tiotropium Allergy Swelling Verified 10/05/20 15:18 [From Spiriva with HandiHaler] Social History household members: spouse Smoking Status: Former smoker alcohol intake: current alcohol intake frequency: other substance use type: does not use ROS ROS ED Review of Systems ROS Unobtainable: other Details: Patient appears alert and answers questions promptly. He does have baseline dementia. Constitutional Constitutional ED: Denies chills or fever(s) Eyes Eyes: Denies change in vision ENT ENT ED: Denies sore throat Cardiovascular Cardiovascular: Denies chest pain Respiratory/Chest Respiratory/Chest: Reports cough and dyspnea Gastrointestinal Gastrointestinal: Denies abdominal pain, diarrhea, nausea or vomiting Genitourinary Genitourinary ED: Reports other Details: Decreased urine output ; Denies dysuria Musculoskeletal Musculoskeletal: Denies back pain Integumentary Denies rash Neurologic Neurologic: Denies headache(s) or weakness Psychiatric Psychiatric: Denies anxiety or depression Endocrine Endocrinology: Denies polydipsia or polyuria Allergic/Immunologic Allergic/Immunologic ED: Denies urticaria EXAM Physical Exam Const Vital Signs: 10/22/20 16:17 10/22/20 16:27 10/22/20 18:49 Temperature 98.3 F 98.3 F 98.3 F Temperature Source Temporal Temporal Temporal Pulse Rate 73 73 88 Respiratory Rate 22 H 22 H 19 H Respiratory Effort Normal Non-Labored Blood Pressure 190/93 H 190/93 H 164/82 H Blood Pressure Mean 125 125 109 Pulse Ox 94 94 94 Oxygen Delivery Method Nasal Cannula Nasal Cannula Nasal Cannula Oxygen Flow Rate (L/min) 2 2 2 10/22/20 21:13 Temperature Temperature Source Pulse Rate 75 Respiratory Rate 15 Respiratory Effort Blood Pressure 154/91 H Blood Pressure Mean Pulse Ox 95 Oxygen Delivery Method Oxygen Flow Rate (L/min) Positive well nourished and well developed General Appearance ED: well developed HEENT Reports normocephalic and head/scalp atraumatic Eyes PERRL and EOMs intact bilaterally Neck supple Chest Wall inspection of chest normal and palpation of chest normal Resp normal respiratory effort Resp Narrative: Mild rales bilateral bases. Cardio regular rate and regular rhythm GI normal to inspection, nondistended, normoactive bowel sounds Palpation: soft Extremity normal to inspection Neuro Neuro Narrative: No focal neurologic deficits. Sensorium / Orientation: alert Psych mental status grossly normal Skin no rashes or lesions noted MDM MDM MDM Narrative Medical decision making narrative: Route with EMS. EKG, chest x-ray, labs, urinalysis obtained.Patient received Lab Data Attestation: I reviewed the patient's lab results. Labs: Laboratory Results - last 24 hr 10/22/20 10/22/20 10/22/20 16:30 16:30 18:18 WBC 5.3 RBC 3.51 L Hgb 11.1 L Hct 35.4 L MCV 100.9 H MCH 31.6 MCHC 31.4 L RDW Std Deviation 50.6 H RDW Coeff of Kylie 13.6 Plt Count 123 L MPV 10.0 Immature Gran % (Auto) 0.200 Neut % (Auto) 59.7 Lymph % (Auto) 25.9 [place] % (Auto) 12.3 H Eos % (Auto) 1.5 Baso % (Auto) 0.4 Absolute Neuts (auto) 3.2 Absolute Lymphs (auto) 1.37 Nucleated RBC % 0 Sodium 142 Potassium 3.7 Chloride 108 H Carbon Dioxide 28.0 Anion Gap 6 BUN 46 H Creatinine 2.05 H Estim Creat Clear Calc 28.75 Est GFR (MDRD) Af Amer 41 L Est GFR (MDRD) Non-Af 34 L BUN/Creatinine Ratio 22.4 H Glucose 110 H Calcium 9.1 Urine Color Yellow Urine Clarity Clear Urine pH 5.0 Ur Specific [place] 1.015 Urine Protein 100 H Urine Glucose (UA) Normal Urine Ketones Negative Urine Occult Blood 10 H Urine Nitrite Negative Urine Bilirubin Negative Urine Urobilinogen Normal Ur Leukocyte Esterase Negative Urine RBC 0 SEEN Urine WBC 0 SEEN Ur Squamous Epith Cells 0 SEEN Urine Bacteria 0 SEEN Urine Mucus 0 SEEN Radiography Chest X-Ray - ED: 1 View, Read by ED Physician, Chronic Changes and No Infiltrates Diagnostic Testing: Radiology Impression Chest X-Ray 10/22/20 16:43 IMPRESSION: ASHD and minor chronic interstitial changes in the lower lobes. No acute disease Electronically Signed: Markos Marin MD at 17:39 EDT , Service support , Lumbar Spine X-Ray 10/22/20 19:08 IMPRESSION: Mild spondylosis. No acute fracture or subluxation.. Electronically Signed: Markos Marin MD at 20:27 EDT , Service support , EKG Initial EKG: Attestation: I personally reviewed and interpreted this EKG as follows: Interpretation: Sinus Rhythm (Sinus at 70 with no acute ischemia.) Treatment and Re-Evaluation Comments:: Nursing staff spoke with the patient's daughter. He apparently had been complaining of some back pain after a recent fall. Lumbar spine x-rays were also obtained. On repeat evaluation patient is resting comfortably. is at bedside. She describes him falling secondary to trying to get up himself or not using his walker appropriately. She has an aide that comes in 2 or more times a week to help. She feels like they are able to keep him safe. Test results are all discussed with the patient and at bedside. At this time patient will be discharged home with his family and will follow up with his doctors this week as scheduled. Discharge Plan Triage Chief Complaint: Shortness of Breath ED Provider: Maureen Urbina Dx/Rx/DC Orders Clinical Impression: Falls, Dyspnea Instructions: ED Dyspnea, ED Fall Dizziness Weakn Balance Prescriptions: No Action carvedilol 25 MG tablet 6.25 mg PO BID RF: 0 atorvastatin 20 MG tablet 20 mg PO QHS RF: 0 albuterol sulfate 1 INHALER inhaler 2 puff inhalation Q4H PRN PRN (Reason: Bronchodialation) RF: 0 duloxetine 30 MG capsule 60 mg PO DAILY RF: 0 budesonide-formoterol 10.2 GM HFA aerosol inhaler 2 puff INHALATION BID PRN PRN (Reason: SOB/wheezing) RF: 0 nitroglycerin 0.4 MG tablet, sublingual 0.4 mg sublingual PRN PRN (Reason: chest pain) RF: 0 Tamsulosin Hcl 0.4 MG capsule 0.4 mg PO DAILY RF: 0 amlodipine 10 MG tablet 10 mg PO DAILY Qty: 30 RF: 1 albuterol sulfate 2.5 mg /3 mL (0.083 %) Solution For Nebulization RF: 0 cyanocobalamin (vitamin B-12) 1,000 mcg Tablet 1,000 mcg PO DAILY RF: 0 ergocalciferol (vitamin D2) 50,000 unit Tablet 50,000 unit PO QWEEK RF: 0 aspirin 81 mg Tablet 81 mg PO DAILY RF: 0 Cholestyramine Light 4 gram Powder 4 g PO DAILY RF: 0 Primary Care Provider: Edi Steven Referrals: Edi Steven PA [Primary Care Provider] - Keep Edwin appointment Disposition Disposition: Home, Self Care Discharge Date/Time: 10/22/20 21:14
[2020-10-22] MEDS: 0.9% Normal Saline 1,000 ML 150 ML IV (18:48)
[2020-10-22 18:49] VITALS: BP 164/82; PULSE 88; RESP 19; TEMP 36.8; O2SAT 94
--- NOTE | 2020-10-22 19:08 | RAD_ITS ---
STUDY: X-RAY - LUMBAR SPINE REASON FOR EXAM: Male, 70 years old. pain after fall TECHNIQUE: 3 view(s) of the lumbar spine were obtained. COMPARISON: None FINDINGS: Normal lumbar lordosis. There is no substantial scoliosis. There is a normal alignment of the vertebrae. No evidence for acute fracture or subluxation.. Disc space heights well-maintained although there is mild multilevel endplate spurring Postop changes status post cholecystectomy.. Distal abdominal aortic aneurysm and postsurgical change status post aortoiliac grafting RAD/Lumbar Spine 2 or 3 Views IMPRESSION: Mild spondylosis. No acute fracture or subluxation.. Electronically Signed: Markos Marin MD at 20:27 EDT , Service support ,
[2020-10-22 21:13] VITALS: BP 154/91; PULSE 75; RESP 15; O2SAT 95
== END 2020-10-22 21:14 | disposition home or self-care (01) ==
PROVIDERS: Emergency Provider Emergency Medicine; PCP Physician Assistant
DX: R06.00 Dyspnea, unspecified (principal); R29.6 Repeated falls; F02.80 Dementia in other diseases classified elsewhere, unspecified severity, without behavioral disturbance, psychotic disturbance, mood disturbance, and anxiety; G30.9 Alzheimer's disease, unspecified; E78.00 Pure hypercholesterolemia, unspecified; J44.9 Chronic obstructive pulmonary disease, unspecified; I12.9 Hypertensive chronic kidney disease with stage 1 through stage 4 chronic kidney disease, or unspecified chronic kidney disease; N18.9 Chronic kidney disease, unspecified; Z86.73 Personal history of transient ischemic attack (TIA), and cerebral infarction without residual deficits; Z99.81 Dependence on supplemental oxygen; Z79.51 Long term (current) use of inhaled steroids; Z79.899 Other long term (current) drug therapy; Z87.891 Personal history of nicotine dependence
CPT/HCPCS: 71045; 72100; 80048; 81001; 85025; 87086; 87088; 93005; 96360; 96361; 99285; J7030

== ENCOUNTER 2021-04-15 10:03 | Inpatient (IN) | payer MEDICARE, MEDICAID, SELFPAY ==
[2021-04-15] VITALS (12 sets, daily range): BP systolic 132–161; BP diastolic 79–134; PULSE 62–96; RESP 15–18; TEMP 35.9–37.1; O2SAT 91–100; BMI 20.7; BMI 19.8
--- NOTE | 2021-04-15 10:00 | RAD_ITS ---
STUDY: X-RAY CHEST REASON FOR EXAM: Male, 70 years old. syncope TECHNIQUE: Single AP portable view of the chest. COMPARISON: 10/22/2020 FINDINGS: Poor inspiration with bibasilar atelectasis. There is no demonstrated pleural abnormality. Normal size heart. Normal mediastinum and estefani. Normal visualized pulmonary arteries. There is atherosclerotic tortuosity of the aortic arch and descending thoracic aorta. Normal visualized thoracic spine. Normal visualized ribs, clavicles, and shoulders. There is no demonstrated abnormality of the visualized soft tissue structures of the upper abdomen. RAD/Chest 1 View (Portable) IMPRESSION: Poor inspiration with some bibasilar atelectasis. Electronically Signed: Keron Barcenas MD at 11:20 EST Tel , Service support ,
--- NOTE | 2021-04-15 10:32 | CT_ITS ---
STUDY: CT BRAIN WITHOUT CONTRAST REASON FOR EXAM: Male, 70 years old. trauma RADIATION DOSAGE (If Supplied By Facility): CTDIvol = ( 44.99 ) mGy, DLP = ( 745.49 ) mGycm TECHNIQUE: Transaxial CT imaging of the brain was performed without administration of intravenous contrast material. Individualized dose optimization techniques were used for this CT. COMPARISON: 05/17/2020 FINDINGS: Normal soft tissue structures. Fractures of the anterolateral wall of the left maxillary sinus with hemorrhage within the sinus. There is moderate cerebral atrophy with widening of the extra-axial spaces and ventricular dilatation. There are areas of decreased attenuation within the white matter tracts of the supratentorial brain, consistent with microvascular disease changes. Chronic lacunar infarcts in the thalami bilaterally. Normal brainstem. Normal cerebellum. There is no intracranial hemorrhage. There are no findings of an acute ischemic infarction. Normal visualized paranasal sinuses. CT/Brain/Head without Contrast IMPRESSION: 1. Acute fractures left x-ray sinus with hemorrhage within the sinus. 2. Moderate atrophy and ischemic white matter changes but no intracranial hemorrhage. Electronically Signed: Keron Barcenas MD at 11:17 EST Tel , Service support ,
--- NOTE | 2021-04-15 10:32 | EKG12_ITS ---
Test Reason : FALL Blood Pressure : / mmHG Vent. Rate : 072 BPM Atrial Rate : 072 BPM P-R Int : 108 ms QRS Dur : 078 ms QT Int : 426 ms P-R-T Axes : 017 041 034 degrees QTc Int : 466 ms Sinus rhythm with short [place] with Premature supraventricular complexes Otherwise normal ECG Confirmed by MELVIN ROPER, DOUG ([id number]), newspaper managing editor BONIFACIO MORAN ([id number]) on 04/18/2021 9:07:52 AM Referred By: Confirmed By:DOUG CHARLES MD
--- NOTE | 2021-04-15 10:33 | EX.ED.DYSGE1 ---
HPI History of Present Illness Chief Complaint: Syncope Informant: patient and friend Narrative Narrative: 70-year-old male brought to the emergency department following a syncopal episode at his doctor's office. Patient reportedly fell 2 days ago and has a black eye and subconjunctival hemorrhage on the left. The friend who sees him every day and helps care for him notes that yesterday everything seemed fine. He was visiting with his son and there were no complaints. This morning she was to come get him and take him to the doctor's office. When she got there he was in bed covered in sweat. thought maybe he had urinated but the friend states that all of his clothes were wet and you could see his outline in the bed. She got him cleaned up and they took him to the doctor. While at the doctor's office he started staring straight ahead and then his head came down and he started drooling breathing hard and was not responding. He was incontinent of stool. Unfortunately the patient cannot really provide me much history stating simply I do not know to a lot of questions. Patient does not recall any chest pain shortness of breath or recollection of the events. The friend states that often times his will call in the middle of the night and states that she needs help because he is falling. The friend wonders if he is actually having syncopal events during the night. [facility] Medical History Alzheimer disease CVA (cerebral vascular accident) Dementia HTN (hypertension) Hyperthyroidism Home Medications albuterol sulfate 2 puff INHALATION Q4H PRN PRN 01/22/19 [History Last Taken Unknown] budesonide-formoterol 2 puff INHALATION BID PRN PRN 01/22/19 [History Last Taken Unknown] carvedilol 6.25 mg PO BID 01/22/19 [History Last Taken 05/16/20] nitroglycerin 0.4 mg SUBLINGUAL PRN PRN 01/22/19 [History Last Taken Unknown] albuterol sulfate 10/05/20 [History Last Taken Unknown] aspirin 81 mg PO DAILY 10/22/20 [History Last Taken Unknown] cholestyramine-aspartame [Cholestyramine Light] 4 g PO DAILY 10/22/20 [History Last Taken Unknown] cyanocobalamin (vitamin B-12) 1,000 mcg PO DAILY 10/22/20 [History Last Taken Unknown] ergocalciferol (vitamin D2) 50,000 unit PO QWEEK 10/22/20 [History Last Taken Unknown] Allergy/AdvReac Type Severity Reaction Status Date / Time tiotropium Allergy Swelling Verified 04/15/21 10:18 [From Spiriva with HandiHaler] Social History household members: spouse Smoking Status: Former smoker alcohol intake: current alcohol intake frequency: other substance use type: does not use ROS ROS ED Constitutional Constitutional ED: Denies chills, fever(s) or weight loss Eyes Eyes: Denies change in vision or diplopia ENT ENT ED: Denies ear pain, rhinorrhea or sore throat Cardiovascular Cardiovascular: Reports other Details: syncope ; Denies chest pain, orthopnea, palpitations or racing heartbeat Respiratory/Chest Respiratory/Chest: Denies cough, dyspnea or orthopnea Gastrointestinal Gastrointestinal: Denies abdominal pain, diarrhea, nausea or vomiting Genitourinary Genitourinary ED: Denies dysuria, hematuria or urinary frequency Musculoskeletal Musculoskeletal: Denies arthralgias or myalgias Integumentary Denies abscess or rash Neurologic Neurologic: Denies headache(s) or weakness Psychiatric Psychiatric: Denies anxiety, depression, suicidal ideation or suicidal thoughts Endocrine Endocrinology: Denies polydipsia, polyphagia or polyuria Allergic/Immunologic Allergic/Immunologic ED: Denies mouth swelling, tongue swelling or urticaria EXAM Physical Exam Const Vital Signs: 04/15/21 10:04 04/15/21 10:11 04/15/21 10:53 Temperature 96.7 F L 96.7 F L Temperature Source Temporal Temporal Pulse Rate 80 80 Respiratory Rate 15 15 Respiratory Effort Normal Non-Labored Short of Breath Labored Accessory Muscle Use Respiratory Pattern Tachypnea Blood Pressure 141/134 H Blood Pressure Mean 136 Pulse Ox 92 92 Oxygen Delivery Method Nasal Cannula Nasal Cannula Oxygen Flow Rate (L/min) 6 04/15/21 11:27 Temperature Temperature Source Pulse Rate Respiratory Rate Respiratory Effort Respiratory Pattern Blood Pressure Blood Pressure Mean Pulse Ox 100 Oxygen Delivery Method Room Air Oxygen Flow Rate (L/min) 6 Positive well nourished and well developed General Appearance ED: well developed HEENT Reports normocephalic, head/scalp atraumatic and moist mucous membranes; Denies dry mucous membranes HEENT Narrative: Periorbital ecchymosis. Subconjunctival hemorrhage on the left. EOMI trauma Mouth ED: No dry mucous membranes Mouth: No dry mucous membranes Eyes PERRL and EOMs intact bilaterally Neck no lymphadenopathy, supple and no JVD Resp normal respiratory effort and clear to auscultation bilaterally Cardio regular rate, regular rhythm and no murmurs GI normal to inspection, nondistended, normoactive bowel sounds and non-tender Palpation: soft Back/Spine no CVA tenderness and normal ROM Extremity normal to inspection General Extremety ED: Negative for edema General Extremity: Negative for edema Neuro oriented x3 and CN's II-XII intact bilaterally Sensorium / Orientation: alert Motor Exam: strength 5/5 throughout Psych mental status grossly normal Mood & Affect: Negative for depressed or tearful Skin no rashes or lesions noted and no wounds MDM MDM MDM Narrative Medical decision making narrative: CT the brain demonstrates a left maxillary sinus fracture. White count 4.8 with hemoglobin 12.2. His troponin is elevated at 115. Creatinine 2.35 with a BUN of 44. Lactic acid 1.3 beta natruretic peptide 388.1. My interpretation of the chest x-ray is no acute process. Cursorily his Covid test is positive. It sounds like the patient may be experiencing reoccurring syncope. Or this could be all weakness from COVID-19 as we do not have an onset date. Thank you would be reasonable to observe the patient in the hospital to rule out any dysrhythmias. Lab Data Attestation: I reviewed the patient's lab results. Labs: Laboratory Results - last 24 hr 04/15/21 04/15/21 04/15/21 10:25 10:25 10:25 WBC 4.8 RBC 3.82 L Hgb 12.2 L Hct 37.6 L MCV 98.4 H MCH 31.9 MCHC 32.4 RDW Std Deviation 52.5 H RDW Coeff of Kylie 14.4 Plt Count 106 L MPV 9.6 Immature Gran % (Auto) 0.400 Neut % (Auto) 72.2 H Lymph % (Auto) 17.6 L [place] % (Auto) 9.6 Eos % (Auto) 0.0 Baso % (Auto) 0.2 Absolute Neuts (auto) 3.5 Absolute Lymphs (auto) 0.84 Nucleated RBC % 0 PT 14.0 INR 1.1 APTT 35.0 Sodium 137 Potassium 4.2 Chloride 105 Carbon Dioxide 23.0 Anion Gap 9 BUN 44 H Creatinine 2.35 H Estim Creat Clear Calc 23.73 Est GFR (MDRD) Af Amer 35 L Est GFR (MDRD) Non-Af 29 L BUN/Creatinine Ratio 18.7 Glucose 117 H Lactic Acid Calcium 8.8 Total Bilirubin 0.40 AST 31 ALT 21 Alkaline Phosphatase 68 Troponin I High Sens 115 H B-Natriuretic Peptide Total Protein 7.8 Albumin 3.4 Globulin 4.4 H Albumin/Globulin Ratio 0.8 L 04/15/21 04/15/21 10:25 10:42 WBC RBC Hgb Hct MCV MCH MCHC RDW Std Deviation RDW Coeff of Kylie Plt Count MPV Immature Gran % (Auto) Neut % (Auto) Lymph % (Auto) [place] % (Auto) Eos % (Auto) Baso % (Auto) Absolute Neuts (auto) Absolute Lymphs (auto) Nucleated RBC % PT INR APTT Sodium Potassium Chloride Carbon Dioxide Anion Gap BUN Creatinine Estim Creat Clear Calc Est GFR (MDRD) Af Amer Est GFR (MDRD) Non-Af BUN/Creatinine Ratio Glucose Lactic Acid 1.3 Calcium Total Bilirubin AST ALT Alkaline Phosphatase Troponin I High Sens B-Natriuretic Peptide 388.1 H Total Protein Albumin Globulin Albumin/Globulin Ratio Radiography Diagnostic Testing: Clinical Impression(s) from Imaging Studies Chest X-Ray 04/15/21 10:00 IMPRESSION: Poor inspiration with some bibasilar atelectasis. Electronically Signed: Keron Barcenas MD at 11:20 EST Tel , Service support , Brain CT 04/15/21 10:32 IMPRESSION: 1. Acute fractures left x-ray sinus with hemorrhage within the sinus. 2. Moderate atrophy and ischemic white matter changes but no intracranial hemorrhage. Electronically Signed: Keron Barcenas MD at 11:17 EST Tel , Service support , EKG Initial EKG: Attestation: I personally reviewed and interpreted this EKG as follows: Comments: Sinus rhythm with short OK but no delta wave. PACs noted. Discharge Plan Dx/Rx/DC Orders Clinical Impression: Syncope and collapse, Non-ST elevation RI (NSTEMI), COVID-19, Closed left maxillary fracture Disposition Disposition: Acute Care Hospital [facility]
[2021-04-15 10:46] LABS: Absolute Lymphocyte Count 0.84 X10^3/uL (0.83-4.51); Absolute Neutrophil Count 3.5 X10^3/uL (2.0-7.7); Basophil# 0.01 X10^3/uL; Basophil% 0.2 % (0-1); Hematocrit 37.6 % (40-54); Hemoglobin 12.2 g/dL (13.0-16.5); Lymphocyte # 0.84 X10^3/ul (0.83-4.51); Lymphocyte % 17.6 % (19-41); Mean Corp Hgb Conc 32.4 g/dL (32-36); Mean Corpuscular Hgb 31.9 pg (27.0-32.0); Mean Corpuscular Volume 98.4 fL (80-94); Mean Platelet Vol. 9.6 fl (6.2-12.0); Monocyte# 0.46 X10^3/uL; Monocyte% 9.6 % (0-10); NRBC Flagged by Analyzer 0 % (0-5); Neutrophil # 3.45 X10^3/uL (2.7-7.7); Neutrophil % 72.2 % (47-70); Platelet Count 106 K/mm3 (150-450); RBC Distribution Width CV 14.4 % (11.6-14.6); RBC Distribution Width SD 52.5 fl (35.1-43.9); Red Blood Count 3.82 M/mm3 (4.6-6.2); White Blood Count 4.8 K/mm3 (4.4-11.0)
[2021-04-15 10:53] LABS: International Normalized Ratio 1.1
[2021-04-15 11:03] LABS: ALB/GLOB Ratio 0.8 RATIO (0.9-2.4); AST(SGOT) 31 U/L (15-37); Alanine Aminotransfer ALT/SGPT 21 U/L (16-61); Albumin, Serum 3.4 g/dL (3.2-5.0); Alkaline Phosphatase 68 U/L (45-117); Anion Gap 9 (5-15); BUN 44 mg/dL (7-18); BUN/Creat Ratio 18.7 RATIO (10-20); Calcium,Total 8.8 mg/dL (8.5-10.1); Chloride 105 mmol/L (98-107); Creatinine, Serum 2.35 mg/dL (0.70-1.30); EST Glomerular Filtration Rate 29 mL/min (>60); Est Glom Filt Rate - Afr Amer 35 mL/min (>60); Estimated Creatinine Clearance 23.73 ml/min; Globulin 4.4 g/dL (2.2-4.2); Glucose 117 mg/dL (74-106); Potassium 4.2 mmol/L (3.5-5.1); Protein, Total 7.8 g/dL (6.4-8.2); Sodium Level 137 mmol/L (136-145); Troponin-I HS 115 pg/mL (3.0-78.0)
[2021-04-15 11:08] LABS: BNP,B-Type NATRIURETIC PEPTIDE 388.1 pg/mL (0-100)
[2021-04-15 11:20] LABS: Lactic Acid 1.3 mmol/L (0.4-1.9)
--- NOTE | 2021-04-15 11:28 | CPS ---
Patient pulse ox not reading. ear prob placed and O2 reading of 100% was read.patient weaned to room air by [employer]IN[employer]
[2021-04-15 12:07] LABS: Bacteria 0 SEEN /hpf (None Seen); Mucous, Urine 0 SEEN /hpf (<or=2+); Squamous Epithelial Cells - UA 0 SEEN /hpf (0-5); White Blood Cells 0 SEEN /hpf (0-5)
[2021-04-15 12:14] LABS: Color, Urine Yellow (Yellow); Glucose, Dipstick Normal (Normal); Ketone-Dipstick Negative (Negative); Leukocyte Esterase-Dipstick Negative /ul (Negative); Nitrite-Dipstick Negative (Negative); Occult Blood-Urine 50 /ul (Negative); Protein-Dipstick 100 mg/dl (Negative); Specific Gravity, Urine 1.015 (1.002-1.030); Urine Bilirubin Dipstick Negative (Negative); Urine Clarity Clear (Clear); Urine Urobilinogen Normal (Normal)
--- NOTE | 2021-04-15 12:19 | PCM.HP.STD ---
HPI - General HPI Narrative ESTELLA BUCIO, is a 70 M who presents after syncopal episode at PCPs office. Patient was somewhat delirious history was therefore taken from the documentation from the EMS as well as from the ED physician. Apparently patient has been experiencing frequent falls at home for the past couple of days. The EMS was called and patient was sent to patient's PCP. While at the PCP patient was reported to have passed out and became incontinent of urine. Was subsequently brought to the emergency department found to be hypoxic with oxygen saturation in the high 80s whilst on 6 L nasal cannula. Subsequent COVID 19 obtained came back positive. Admitted to a monitored bed for subsequent management [facility] Medical History Alzheimer disease CVA (cerebral vascular accident) Dementia HTN (hypertension) Hyperthyroidism Home Medications albuterol sulfate 2 puff INHALATION Q4H PRN PRN 01/22/19 [History Last Taken Unknown] budesonide-formoterol 2 puff INHALATION BID PRN PRN 01/22/19 [History Last Taken Unknown] carvedilol 6.25 mg PO BID 01/22/19 [History Last Taken 05/16/20] nitroglycerin 0.4 mg SUBLINGUAL PRN PRN 01/22/19 [History Last Taken Unknown] albuterol sulfate 10/05/20 [History Last Taken Unknown] aspirin 81 mg PO DAILY 10/22/20 [History Last Taken Unknown] cholestyramine-aspartame [Cholestyramine Light] 4 g PO DAILY 10/22/20 [History Last Taken Unknown] cyanocobalamin (vitamin B-12) 1,000 mcg PO DAILY 10/22/20 [History Last Taken Unknown] ergocalciferol (vitamin D2) 50,000 unit PO QWEEK 10/22/20 [History Last Taken Unknown] Allergy/AdvReac Type Severity Reaction Status Date / Time tiotropium Allergy Swelling Verified 04/15/21 10:18 [From [facility] with [facility]] unable to obtain Social History household members: spouse Smoking Status: Former smoker alcohol intake: current alcohol intake frequency: other substance use type: does not use ROS Review of Systems ROS Unobtainable: due to encephalopathy Vital Signs Vital Signs Vital Signs: 04/15/21 10:04 04/15/21 10:11 04/15/21 10:53 Temperature 96.7 F L 96.7 F L Temperature Source Temporal Temporal Pulse Rate 80 80 Respiratory Rate 15 15 Respiratory Effort Normal Non-Labored Short of Breath Labored Accessory Muscle Use Respiratory Pattern Tachypnea Blood Pressure 141/134 H Blood Pressure Mean 136 Pulse Ox 92 92 Oxygen Delivery Method Nasal Cannula Nasal Cannula Oxygen Flow Rate (L/min) 6 04/15/21 11:27 Temperature Temperature Source Pulse Rate Respiratory Rate Respiratory Effort Respiratory Pattern Blood Pressure Blood Pressure Mean Pulse Ox 100 Oxygen Delivery Method Room Air Oxygen Flow Rate (L/min) 6 Weight Weight: 58.2 kg Body Mass Index (BMI) 20.7 Physical Exam Narrative GENERAL: Appears ill looking HEENT: Periorbital bruising left eye EYES; Anicteric, Normal Conjunctiva NECK; supple, normal thyroid, RESPIRATORY: Diminished to auscultation CARDIOVASCULAR: Regular S1 S2, GI: soft, normoactive bowel sounds, : No Renal angle tenderness; EXTREMITIES: No edema, no clubbing, MUSCULOSKELETAL: no muscle waisting NEURO: Awake; no lateralizing signs. SKIN: No Rash PSYCH; Flat affect Results Lab / Micro Data Result Diagrams: 04/15/21 10:25 04/15/21 10:25 Labs: Laboratory Results - last 24 hr 04/15/21 10:25: WBC 4.8, RBC 3.82 L, Hgb 12.2 L, Hct 37.6 L, MCV 98.4 H, MCH 31.9, MCHC 32.4, RDW Std Deviation 52.5 H, RDW Coeff of Kylie 14.4, Plt Count 106 L, MPV 9.6, Immature Gran % (Auto) 0.400, Neut % (Auto) 72.2 H, Lymph % (Auto) 17.6 L, [place] % (Auto) 9.6, Eos % (Auto) 0.0, Baso % (Auto) 0.2, Absolute Neuts (auto) 3.5, Absolute Lymphs (auto) 0.84, Nucleated RBC % 0 04/15/21 10:25: PT 14.0, INR 1.1, APTT 35.0 04/15/21 10:25: Sodium 137, Potassium 4.2, Chloride 105, Carbon Dioxide 23.0, Anion Gap 9, BUN 44 H, Creatinine 2.35 H, Estim Creat Clear Calc 23.73, Est GFR (MDRD) Af Amer 35 L, Est GFR (MDRD) Non-Af 29 L, BUN/Creatinine Ratio 18.7, Glucose 117 H, Calcium 8.8, Total Bilirubin 0.40, AST 31, ALT 21, Alkaline Phosphatase 68, Troponin I High Sens 115 H, Total Protein 7.8, Albumin 3.4, Globulin 4.4 H, Albumin/Globulin Ratio 0.8 L 04/15/21 10:25: B-Natriuretic Peptide 388.1 H 04/15/21 10:42: Lactic Acid 1.3 04/15/21 12:00: Urine Color Yellow, Urine Clarity Clear, Urine pH 6.0, Ur Specific [place] 1.015, Urine Protein 100 H, Urine Glucose (UA) Normal, Urine Ketones Negative, Urine Occult Blood 50 H, Urine Nitrite Negative, Urine Bilirubin Negative, Urine Urobilinogen Normal, Ur Leukocyte Esterase Negative Micro: Microbiology 04/15/21 10:55 Nasal Secretion SARS-CoV-2 Antigen (Rapid) - Final SARS-CoV-2 (COVID 19) Radiology Impression Chest X-Ray 04/15/21 10:00 IMPRESSION: Poor inspiration with some bibasilar atelectasis. Electronically Signed: Keron Barcenas MD at 11:20 EST Tel , Service support , Brain CT 04/15/21 10:32 IMPRESSION: 1. Acute fractures left x-ray sinus with hemorrhage within the sinus. 2. Moderate atrophy and ischemic white matter changes but no intracranial hemorrhage. Electronically Signed: Keron Barcenas MD at 11:17 EST Tel , Service support , Assessment & Plan Assessment/Plan (1) COVID-19: (2) Traumatic subconjunctival hemorrhage of left eye: (3) Closed left maxillary fracture: PLAN: Patient is a 70-year-old gentleman admitted with syncopal episode and hypoxia diagnosed with COVID-19 admitted to monitored bed for further management 1. Syncopal episode ?Do suspect orthostasis from possibly dehydration patient has however been admitted to a monitored bed for continuous telemetry monitoring 2. Acute kidney injury ?Superimposed on chronic kidney disease stage III. Baseline creatinine 1.8, creatinine on admission was 2.35. Started on IV fluids with subsequent monitoring of electrolyte 3. COVID-19 pneumonia ?Patient presented with hypoxia started on Decadron remdesivir was not started in view of impaired kidney function and most of the duration of his symptoms not clear at this point 4. Closed head injury with Acute fractures left maxillary sinus with hemorrhage within the sinus. Plan is for conservative management only at this point 5. Hypertension - Blood pressure controlled, home medications continued with dose adjustment as needed 6. Dyslipidemia -Patient is on statin therapy, continued at home dose 7. Alzheimer's dementia ?Supportive care 8. COPD ?Aerosol treatments as needed 9. DVT prophylaxis SCDs only in view of patient left maxillary sinus fracture with hemorrhage Charges/Coding Visit Charges Inpatient E&M: 80058 Init Hosp L3
[2021-04-15 12:21] LABS: Red Blood Cells-Urine 0-5 SEEN /hpf (0-5)
[2021-04-15] MEDS: 0.9% Normal Saline 1,000 ML 150 ML IV ×2 (14:04→20:19)
--- NOTE | 2021-04-15 14:04 | PCS.PANDOC ---
PANDEMIC DOCUMENTATION INITIATED: Date: 12/03/2020 Time: 190
[2021-04-15] MEDS: Budesonide Respules 0.5 MG/2 ML AMPUL.NEB. INHALATION (19:06)
[2021-04-15] MEDS: Albuterol 2.5 MG/3 ML VIAL.NEB. INHALATION (19:06)
[2021-04-15] MEDS: Acetaminophen 325 MG Tablet 650 MG PO (20:19)
[2021-04-15] MEDS: Famotidine 20 MG Tablet PO (20:32)
[2021-04-15] MEDS: Carvedilol 6.25 MG Tablet PO (20:32)
[2021-04-16] VITALS (17 sets, daily range): BP systolic 144–164; BP diastolic 71–97; PULSE 58–89; RESP 16–26; TEMP 36.9–38.6; O2SAT 84–98
[2021-04-16] MEDS: 0.9% Normal Saline 1,000 ML 150 ML IV ×2 (03:32→09:26)
[2021-04-16 07:05] LABS: Absolute Lymphocyte Count 0.76 X10^3/uL (0.83-4.51); Basophil# 0.01 X10^3/uL; Basophil% 0.2 % (0-1); Differential Indicated SCAN CRITERIA MET; Hematocrit 33.5 % (40-54); Hemoglobin 10.8 g/dL (13.0-16.5); Lymphocyte # 0.76 X10^3/ul (0.83-4.51); Lymphocyte % 18.8 % (19-41); Mean Corp Hgb Conc 32.2 g/dL (32-36); Mean Corpuscular Hgb 31.8 pg (27.0-32.0); Mean Corpuscular Volume 98.5 fL (80-94); Mean Platelet Vol. 9.8 fl (6.2-12.0); Monocyte# 0.27 X10^3/uL; Monocyte% 6.7 % (0-10); NRBC Flagged by Analyzer 0 % (0-5); Neutrophil % 74.1 % (47-70); POSITIVE COUNT YES; Platelet Count 84 K/mm3 (150-450); RBC Distribution Width CV 14.4 % (11.6-14.6); RBC Distribution Width SD 51.9 fl (35.1-43.9); White Blood Count 4.1 K/mm3 (4.4-11.0)
[2021-04-16] MEDS: Albuterol 2.5 MG/3 ML VIAL.NEB. INHALATION ×3 (07:11→19:25)
[2021-04-16 07:24] LABS: Anion Gap 8 (5-15); BUN 43 mg/dL (7-18); BUN/Creat Ratio 19.6 RATIO (10-20); Chloride 111 mmol/L (98-107); Creatinine, Serum 2.19 mg/dL (0.70-1.30); EST Glomerular Filtration Rate 32 mL/min (>60); Est Glom Filt Rate - Afr Amer 38 mL/min (>60); Estimated Creatinine Clearance 23.63 ml/min; Glucose 99 mg/dL (74-106); Magnesium 1.8 mg/dL (1.6-2.6); Potassium 4.2 mmol/L (3.5-5.1); Sodium Level 141 mmol/L (136-145)
--- NOTE | 2021-04-16 07:50 | PN.HOSP_ITS ---
Subjective Subjective Patient is a 70-year-old gentleman admitted with syncopal episode and hypoxia diagnosed with COVID-19 admitted to monitored bed for further management. Ordered EEG this a.m. to rule out possible seizure since patient became incontinent for his apparent syncope Objective Data Objective Data Vital Signs: Vital Signs Temp Pulse Resp BP Pulse Ox 100.6 F H 67 20 H 144/80 H 93 04/16/21 03:26 04/16/21 07:11 04/16/21 07:11 04/16/21 03:26 04/16/21 07:11 Oxygen Flow Rate (L/min) 2 Oxygen Delivery Method Nasal Cannula Weight: 54 kg Body Mass Index (BMI) 19.8 Intake & Output: Intake and Output for Last 24 Hours 04/14/21 04/15/21 04/16/21 23:59 23:59 23:59 Intake Total 1177.5 / 1177.5 1000 / 1000 Balance 1177.5 / 1177.5 1000 / 1000 Lab / Micro Data Result Diagrams: 04/16/21 06:34 04/16/21 06:34 Labs: Laboratory Results - last 24 hr 04/15/21 10:25: WBC 4.8, RBC 3.82 L, Hgb 12.2 L, Hct 37.6 L, MCV 98.4 H, MCH 31.9, MCHC 32.4, RDW Std Deviation 52.5 H, RDW Coeff of Kylie 14.4, Plt Count 106 L, MPV 9.6, Immature Gran % (Auto) 0.400, Neut % (Auto) 72.2 H, Lymph % (Auto) 17.6 L, [place] % (Auto) 9.6, Eos % (Auto) 0.0, Baso % (Auto) 0.2, Absolute Neuts (auto) 3.5, Absolute Lymphs (auto) 0.84, Nucleated RBC % 0 04/15/21 10:25: PT 14.0, INR 1.1, APTT 35.0 04/15/21 10:25: Sodium 137, Potassium 4.2, Chloride 105, Carbon Dioxide 23.0, Anion Gap 9, BUN 44 H, Creatinine 2.35 H, Estim Creat Clear Calc 23.73, Est GFR (MDRD) Af Amer 35 L, Est GFR (MDRD) Non-Af 29 L, BUN/Creatinine Ratio 18.7, Glucose 117 H, Calcium 8.8, Total Bilirubin 0.40, AST 31, ALT 21, Alkaline Phosphatase 68, Troponin I High Sens 115 H, Total Protein 7.8, Albumin 3.4, Globulin 4.4 H, Albumin/Globulin Ratio 0.8 L 04/15/21 10:25: B-Natriuretic Peptide 388.1 H 04/15/21 10:25: C-React Prot Ext Range 20.90 H 04/15/21 10:42: Lactic Acid 1.3 04/15/21 12:00: Urine Color Yellow, Urine Clarity Clear, Urine pH 6.0, Ur Specific [place] 1.015, Urine Protein 100 H, Urine Glucose (UA) Normal, Urine Ketones Negative, Urine Occult Blood 50 H, Urine Nitrite Negative, Urine Bilirubin Negative, Urine Urobilinogen Normal, Ur Leukocyte Esterase Negative, Urine RBC 0-5 SEEN, Urine WBC 0 SEEN, Ur Squamous Epith Cells 0 SEEN, Urine Bacteria 0 SEEN, Urine Mucus 0 SEEN 04/16/21 06:34: WBC 4.1 L, RBC 3.40 L, Hgb 10.8 L, Hct 33.5 L, MCV 98.5 H, MCH 31.8, MCHC 32.2, RDW Std Deviation 51.9 H, RDW Coeff of Kylie 14.4, Plt Count 84 L , MPV 9.8, Immature Gran % (Auto) 0.200, Neut % (Auto) 74.1 H, Lymph % (Auto) 18.8 L, [place] % (Auto) 6.7, Eos % (Auto) 0.0, Baso % (Auto) 0.2, Absolute Neuts (auto) 3.0, Absolute Lymphs (auto) 0.76 L, Nucleated RBC % 0 04/16/21 06:34: Sodium 141, Potassium 4.2, Chloride 111 H, Carbon Dioxide 22.0, Anion Gap 8, BUN 43 H, Creatinine 2.19 H, Estim Creat Clear Calc 23.63, Est GFR (MDRD) Af Amer 38 L, Est GFR (MDRD) Non-Af 32 L, BUN/Creatinine Ratio 19.6, Glucose 99, Calcium 8.0 L, Magnesium 1.8 Micro: Microbiology 04/15/21 12:00 Urine, Clean Catch Legionella Antigen - Final 04/15/21 12:00 Urine, Clean Catch Streptococcus pneumoniae Antigen (M - Final 04/15/21 10:55 Nasal Secretion SARS-CoV-2 Antigen (Rapid) - Final SARS-CoV-2 (COVID 19) Radiography Diagnostic Testing: Radiology Impression Chest X-Ray 04/15/21 10:00 IMPRESSION: Poor inspiration with some bibasilar atelectasis. Electronically Signed: Keron Barcenas MD at 11:20 EST Tel , Service support , Brain CT 04/15/21 10:32 IMPRESSION: 1. Acute fractures left x-ray sinus with hemorrhage within the sinus. 2. Moderate atrophy and ischemic white matter changes but no intracranial hemorrhage. Electronically Signed: Keron Barcenas MD at 11:17 EST Tel , Service support , Physical Exam Narrative GENERAL: Appears ill looking HEENT: Periorbital bruising left eye EYES; Anicteric, Normal Conjunctiva NECK; supple, normal thyroid, RESPIRATORY: Diminished to auscultation CARDIOVASCULAR: Regular S1 S2, GI: soft, normoactive bowel sounds, : No Renal angle tenderness; EXTREMITIES: No edema, no clubbing, MUSCULOSKELETAL: no muscle waisting NEURO: Awake; no lateralizing signs. SKIN: No Rash PSYCH; Flat affect Assessment & Plan Assessment/Plan (1) COVID-19: (2) Traumatic subconjunctival hemorrhage of left eye: (3) Closed left maxillary fracture: PLAN: Patient is a 70-year-old gentleman admitted with syncopal episode and hypoxia diagnosed with COVID-19 admitted to monitored bed for further management 1. Syncopal episode ?Do suspect orthostasis from possibly dehydration patient has however been admitted to a monitored bed for continuous telemetry monitoring -04/16/2021. Patient is a 70-year-old gentleman admitted with syncopal episode and hypoxia diagnosed with COVID-19 admitted to monitored bed for further management. Ordered EEG this a.m. to rule out possible seizure since patient became incontinent for his apparent syncope 2. Acute kidney injury ?Superimposed on chronic kidney disease stage III. Baseline creatinine 1.8, creatinine on admission was 2.35. Started on IV fluids with subsequent monitoring of electrolyte --821; creatinine to 2.19 3. COVID-19 pneumonia ?Patient presented with hypoxia started on Decadron remdesivir was not started in view of impaired kidney function and most of the duration of his symptoms not clear at this point 04/16/2021; remains on supplemental oxygen 4. Closed head injury with Acute fractures left maxillary sinus with hemorrhage within the sinus. Plan is for conservative management only at this point 5. Hypertension - Blood pressure controlled, home medications continued with dose adjustment as needed 6. Dyslipidemia -Patient is on statin therapy, continued at home dose 7. Alzheimer's dementia ?Supportive care 8. COPD ?Aerosol treatments as needed 9. DVT prophylaxis SCDs only in view of patient left maxillary sinus fracture with hemorrhage -Lovenox not initiated on admission in view of above. Charges/Coding Visit Charges Inpatient E&M: 10023 Subs Hosp L3
[2021-04-16 08:47] LABS: Differential Comment SCANNED; Platelet Estimate MOD DEC (ADEQ); Platelet Morphology LARGE
[2021-04-16] MEDS: Famotidine 20 MG Tablet PO (09:22)
[2021-04-16] MEDS: Carvedilol 3.125 MG TABLET PO ×2 (09:22→20:37)
[2021-04-16] MEDS: Aspirin E.C. 81 MG Tablet PO (09:22)
[2021-04-16] MEDS: Cyanocobalamin 500 MCG Tablet 1000 MCG PO (09:22)
[2021-04-16] MEDS: Menthol/Lanolin/Calamine/Znox 113 GM Tube 1 APPLIC TOPICAL ×4 (09:29→20:37)
--- NOTE | 2021-04-16 10:10 | CASEMGMT ---
Per nursing staff, patient confused and pulling at equipment today. Telephone call to patient's , Jada Beltran ([phone]) for initial transition planning/care coordination assessment. CCM introduced self and role at [facility]. Care providers, pharmacy, and demographics verified. PCP: FARZANEH Cruz Preferred Pharmacy: [facility] Insurance: [facility] Prescription Benefit: yes Living Will/HPOA: Per patient's , patient does not have LW/HPOA. LNOK: , Jada Beltran Living Arrangements: Patient lives with in one story house with ramps to enter the home. Patient requires assistance with ADLs and has family friend () that assists with bathing and dressing. Per , patient uses wheelchair/transport chair but occasionally uses FWW. Patient has been very unsteady on feet, running into vance with frequent falls recently. states patient has been dragging right leg x 5-6 months and often falls in the middle of the night. Friend frequently called to home to assist patient from floor. Social: former smoker (quit 2 years ago), denies ETOH use Transportation: Patient does not drive. drives only short distances. Family friend, , provides for transportation needs. DME/HHC: Patient has wheelchair, transport chair, tub bench, BSC, hospital bed, grab bars, and oxygen in home. Patient [facility] concentr[facility] and [facility], ordered at 2L/min but has not needed or been using oxygen therapy in recent past. Per , DASCO planning to reevaluate need for oxygen and remove supplies from home soon. Patient has had [facility] and [facility] in the past. Had short rehab stay at [facility] last year. Plan: to be determined pending therapy evals
[2021-04-16] MEDS: Budesonide Respules 0.5 MG/2 ML AMPUL.NEB. INHALATION (19:25)
[2021-04-16] MEDS: Acetaminophen 325 MG Tablet 650 MG PO (20:37)
[2021-04-16] MEDS: MELATONIN 3 MG TABLET PO (20:41)
[2021-04-16] MEDS: 0.9% Saline Lock 10 ML Syringe IV (20:41)
[2021-04-17] VITALS (18 sets, daily range): BP systolic 98–180; BP diastolic 68–111; PULSE 68–110; RESP 20–36; TEMP 37.1–39.3; O2SAT 93–98
[2021-04-17] MEDS: Albuterol 2.5 MG/3 ML VIAL.NEB. INHALATION ×4 (03:52→19:11)
[2021-04-17 06:34] LABS: Absolute Lymphocyte Count 0.98 X10^3/uL (0.83-4.51); Absolute Neutrophil Count 2.4 X10^3/uL (2.0-7.7); Basophil# 0.01 X10^3/uL; Basophil% 0.3 % (0-1); Hematocrit 34.4 % (40-54); Hemoglobin 10.9 g/dL (13.0-16.5); Lymphocyte # 0.98 X10^3/ul (0.83-4.51); Lymphocyte % 27.1 % (19-41); Mean Corp Hgb Conc 31.7 g/dL (32-36); Mean Corpuscular Hgb 31.7 pg (27.0-32.0); Mean Platelet Vol. 10.2 fl (6.2-12.0); Monocyte# 0.18 X10^3/uL; NRBC Flagged by Analyzer 0 % (0-5); Neutrophil # 2.43 X10^3/uL (2.7-7.7); POSITIVE COUNT YES; Platelet Count 78 K/mm3 (150-450); RBC Distribution Width CV 14.6 % (11.6-14.6); RBC Distribution Width SD 53.4 fl (35.1-43.9); Red Blood Count 3.44 M/mm3 (4.6-6.2); White Blood Count 3.6 K/mm3 (4.4-11.0)
[2021-04-17 06:50] LABS: Anion Gap 8 (5-15); BUN 43 mg/dL (7-18); BUN/Creat Ratio 21.5 RATIO (10-20); Calcium,Total 8.2 mg/dL (8.5-10.1); Chloride 109 mmol/L (98-107); EST Glomerular Filtration Rate 35 mL/min (>60); Est Glom Filt Rate - Afr Amer 43 mL/min (>60); Estimated Creatinine Clearance 26.64 ml/min; Glucose 96 mg/dL (74-106); Potassium 4.2 mmol/L (3.5-5.1); Sodium Level 136 mmol/L (136-145)
[2021-04-17] MEDS: Budesonide Respules 0.5 MG/2 ML AMPUL.NEB. INHALATION ×2 (07:12→19:11)
[2021-04-17] MEDS: Menthol/Lanolin/Calamine/Znox 113 GM Tube 1 APPLIC TOPICAL ×4 (08:21→21:57)
[2021-04-17] MEDS: Aspirin E.C. 81 MG Tablet PO (08:21)
[2021-04-17] MEDS: Carvedilol 3.125 MG TABLET PO ×2 (08:21→21:57)
[2021-04-17] MEDS: Famotidine 20 MG Tablet PO (08:21)
[2021-04-17] MEDS: Cyanocobalamin 500 MCG Tablet 1000 MCG PO (08:21)
[2021-04-17] MEDS: Acetaminophen 325 MG Tablet 650 MG PO ×2 (08:21→21:58)
--- NOTE | 2021-04-17 13:09 | CASEMGMT ---
SW spoke with therapy and they are recommending placement. SW called patient's as patient is confused. SW explained therapy is recommending patient go to a [facility] facility short term for rehab. SW explained that the only facility in the area that is taking COVID positive patients is [facility] in [place]. SW asked if it is okay if SW sends a referral to [facility]. Patient's was in agreement with SW sending a referral to [facility]. SW notified [facility] at [facility] that SW is sending a referral for a COVID patient. Referral faxed. Await response. Kerri Best QC CHEMIST Artemio
--- NOTE | 2021-04-17 16:01 | PN.HOSP_ITS ---
Subjective Subjective Patient had syncopal episode at PCP office. Frequent falls. Fever T-max 100.5 Fahrenheit. Left eye bruise Objective Data Objective Data Vital Signs: Vital Signs Temp Pulse Resp BP Pulse Ox 98.9 F 68 20 H 111/71 95 04/17/21 14:05 04/17/21 15:51 04/17/21 14:05 04/17/21 14:05 04/17/21 14:11 Oxygen Flow Rate (L/min) 3 Oxygen Delivery Method Nasal Cannula Weight: 122 lb 9.232 oz Body Mass Index (BMI) 19.8 Intake & Output: Intake and Output for Last 24 Hours 04/15/21 04/16/21 04/17/21 23:59 23:59 23:59 Intake Total 1177.5 / 1177.5 3665 / 3905 720 / 720 Balance 1177.5 / 1177.5 3665 / 3905 720 / 720 Lab / Micro Data Result Diagrams: 04/17/21 06:15 04/17/21 06:15 Labs: Laboratory Results - last 24 hr 04/17/21 06:15: WBC 3.6 L, RBC 3.44 L, Hgb 10.9 L, Hct 34.4 L, MCV 100.0 H, MCH 31.7, MCHC 31.7 L, RDW Std Deviation 53.4 H, RDW Coeff of Kylie 14.6, Plt Count 78 L, MPV 10.2, Immature Gran % (Auto) 0.600, Neut % (Auto) 67.0, Lymph % (Auto) 27.1, [place] % (Auto) 5.0, Eos % (Auto) 0.0, Baso % (Auto) 0.3, Absolute Neuts (auto) 2.4, Absolute Lymphs (auto) 0.98, Nucleated RBC % 0 04/17/21 06:15: Sodium 136, Potassium 4.2, Chloride 109 H, Carbon Dioxide 19.0 L , Anion Gap 8, BUN 43 H, Creatinine 2.00 H, Estim Creat Clear Calc 26.64, Est GFR (MDRD) Af Amer 43 L, Est GFR (MDRD) Non-Af 35 L, BUN/Creatinine Ratio 21.5 H , Glucose 96, Calcium 8.2 L Micro: Microbiology 04/15/21 12:00 Urine, Clean Catch Legionella Antigen - Final 04/15/21 12:00 Urine, Clean Catch Streptococcus pneumoniae Antigen (M - Final 04/15/21 10:55 Nasal Secretion SARS-CoV-2 Antigen (Rapid) - Final SARS-CoV-2 (COVID 19) Physical Exam Narrative General: Awake, intermittent confusion and disorientation. HEENT: Left periorbital area bruise. Subconjunctival bleed of bulbar conjunctiva. Oral: No Gingival or Mucosal Lesions/ Ulcerations Neck: Supple, No JVD, Negative Carotid Bruits Lungs: Air entry diminished in bilateral lung bases. Bilateral expiratory rho nchi. Cardiovascular: Sinus rhythm with PVCs, Normal S1, Normal S2, No murmurs Abdomen: Bowel Sounds Present, Soft, Non Tender, Non-Distended : No renal angle tenderness. No suprapubic tenderness. Extremities: No edema, Capillary Refill Less than 3 Seconds Skin: No rashes, No breakdown Musculoskeletal: Weakness of right leg mainly quadriceps and hip muscles seems chronic. Unable to advance right leg evidence by PT. No Tenderness to Palpation of Joints or Extremities. Neurological: Cranial nerves II-XII grossly intact, DTR 2+/4 Psych/Mental Status: Flat affect Assessment & Plan Assessment/Plan (1) COVID-19: (2) Traumatic subconjunctival hemorrhage of left eye: (3) Closed left maxillary fracture: PLAN: Patient is a 70-year-old gentleman admitted with syncopal episode and hypoxia diagnosed with COVID-19 admitted to monitored bed for further management 1. Syncopal episode 04/17: Possible due to orthostasis from dehydration. Orthostatic blood pressure ordered. EEG reported no epileptiform discharges but generalized slowing of background rhythm with artifacts 2. Acute kidney injury, superimposed on chronic kidney disease stage III. Baseline creatinine 1.8, creatinine on admission was 2.35. Started on IV fluids and subsequent creatinine is showing decreasing trend. 3. COVID-19 pneumonia with hypoxia and patient is started on dexamethasone. Remdesivir was not started in view of impaired kidney function and most of the duration of his symptoms not clear at this point 4. Closed head injury with Acute fractures left maxillary sinus with hemorrhage within the sinus. Plan is for conservative management only at this point Patient also could not advance right lower extremity as directed by physical therapist. Right hip x-ray with pelvis ordered. 5. Hypertension - Blood pressure controlled, home medications continued with dose adjustment as needed 6. Dyslipidemia -Patient is on statin therapy, continued at home dose 7. Alzheimer's dementia ?Supportive care 8. COPD ?Aerosol treatments as needed 9. DVT prophylaxis SCDs only in view of patient left maxillary sinus fracture with hemorrhage -Lovenox not initiated on admission in view of above. Charges/Coding Visit Charges Inpatient E&M: 77265 Subs Hosp L2
[2021-04-17] MEDS: Lactated Ringers 500 ML 100 ML IV (18:30)
[2021-04-17] MEDS: MELATONIN 3 MG TABLET PO (21:57)
[2021-04-17 22:05] LABS: Bedside Glucose 101 mg/dL (70-110)
[2021-04-18] VITALS (15 sets, daily range): BP systolic 108–154; BP diastolic 54–95; PULSE 60–96; RESP 20–24; TEMP 36.7–38.4; O2SAT 89–99
--- NOTE | 2021-04-18 | RAD_ITS ---
INDICATION: right hip weakness EXAMINATION/TECHNIQUE: X-RAY - RIGHT XR Hip Unilateral with Pelvis when performed; 2-3 Views 3 VIEWS COMPARISON: None. FINDINGS: Abdominal aortic stent graft visualized in position. Atherosclerotic calcifications seen. Degenerative bone changes visualized, no evidence of cortical irregularity or lucency to suggest a fracture, no evidence of lytic or sclerotic bone lesion is seen. No significant narrowing or widening of the hip joint space is seen. RAD/HIP, UNI W/ Pelvis 2-3 Views IMPRESSION: Degenerative changes, no acute osseous abnormality is seen. Electronically Signed: Dariusz Spencer MD at 8:47 EST Tel , Service support ,
[2021-04-18] MEDS: Acetaminophen 325 MG Tablet 650 MG PO ×2 (05:43→17:58)
[2021-04-18 06:11] LABS: Absolute Lymphocyte Count 0.91 X10^3/uL (0.83-4.51); Absolute Neutrophil Count 2.8 X10^3/uL (2.0-7.7); Hematocrit 35.8 % (40-54); Hemoglobin 11.4 g/dL (13.0-16.5); Lymphocyte # 0.91 X10^3/ul (0.83-4.51); Lymphocyte % 23.5 % (19-41); Mean Corp Hgb Conc 31.8 g/dL (32-36); Mean Corpuscular Hgb 31.1 pg (27.0-32.0); Mean Corpuscular Volume 97.8 fL (80-94); Monocyte# 0.13 X10^3/uL; Monocyte% 3.4 % (0-10); NRBC Flagged by Analyzer 0 % (0-5); Neutrophil # 2.82 X10^3/uL (2.7-7.7); Neutrophil % 72.6 % (47-70); POSITIVE COUNT YES; POSITIVE MORPHOLOGY YES; Platelet Count 75 K/mm3 (150-450); RBC Distribution Width CV 14.4 % (11.6-14.6); RBC Distribution Width SD 52.6 fl (35.1-43.9); Red Blood Count 3.66 M/mm3 (4.6-6.2); White Blood Count 3.9 K/mm3 (4.4-11.0)
[2021-04-18 06:24] LABS: Differential Indicated SCAN CRITERIA MET
[2021-04-18 06:59] LABS: Anion Gap 7 (5-15); BUN 45 mg/dL (7-18); BUN/Creat Ratio 20.8 RATIO (10-20); Calcium,Total 8.3 mg/dL (8.5-10.1); Chloride 108 mmol/L (98-107); Creatinine, Serum 2.16 mg/dL (0.70-1.30); EST Glomerular Filtration Rate 32 mL/min (>60); Est Glom Filt Rate - Afr Amer 39 mL/min (>60); Estimated Creatinine Clearance 24.93 ml/min; Glucose 101 mg/dL (74-106); Magnesium 1.9 mg/dL (1.6-2.6); Potassium 4.6 mmol/L (3.5-5.1); Sodium Level 138 mmol/L (136-145)
[2021-04-18 07:00] LABS: Phosphorus 2.5 mg/dL (2.5-4.9)
[2021-04-18] MEDS: Budesonide Respules 0.5 MG/2 ML AMPUL.NEB. INHALATION ×2 (08:31→19:54)
[2021-04-18] MEDS: Albuterol 2.5 MG/3 ML VIAL.NEB. INHALATION ×3 (08:31→19:54)
[2021-04-18] MEDS: Famotidine 20 MG Tablet PO (10:35)
[2021-04-18] MEDS: Aspirin E.C. 81 MG Tablet PO (10:35)
[2021-04-18] MEDS: Cyanocobalamin 500 MCG Tablet 1000 MCG PO (10:35)
[2021-04-18] MEDS: Carvedilol 3.125 MG TABLET PO ×2 (10:35→21:51)
[2021-04-18] MEDS: Menthol/Lanolin/Calamine/Znox 113 GM Tube 1 APPLIC TOPICAL ×4 (10:35→21:51)
--- NOTE | 2021-04-18 11:56 | CASEMGMT ---
RIP heard back from [facility] at [facility] and their COVID unit is full. They can accept patient, but not until Thursday when a bed opens up. RIP called patient's Jada and let her know this information. She asked about visitation for patient. RIP let Jada know she is the visitor listed. She said she developed a fever so she will not be able to come in. She has not been in so we can switch. Jada asked if Naomi could be the visitor. RIP told her that since she has not been in we can switch the visitor, but we cannot change it after that. Naomi will be the only one that can visit him while he is at [facility]. Plan: d/c to [facility] pending bed availability which is Thursday04-22-21. Kerri ROMERO
--- NOTE | 2021-04-18 12:54 | RAD_ITS ---
STUDY: X-RAY CHEST REASON FOR EXAM: Male, 70 years old. CHEST PAIN sob, covid TECHNIQUE: XR Chest 1 View COMPARISON: 3 days ago. FINDINGS: There is no demonstrated pleural abnormality. There is bilateral infiltrate. Normal size heart. Normal mediastinum and estefani. Normal visualized pulmonary arteries. There is atherosclerotic calcification of the aortic arch with tortuosity. There are diffuse degenerative changes of the visualized thoracic spine. There is degenerative osteoarthritis of the bilateral shoulders. There is no demonstrated abnormality of the visualized soft tissue structures of the upper abdomen. RAD/Chest 1 View (Portable) IMPRESSION: Pulmonary findings appear worse. Electronically Signed: Kael Fernandez MD at 14:48 EST , Service support ,
--- NOTE | 2021-04-18 15:38 | PCM.PN.HOSP ---
Subjective Subjective Patient seems more lethargic, tachypneic and fever T-max 102.8 Fahrenheit. The nurse reported patient also having diarrhea, incontinent. Objective Data Objective Data Vital Signs: Vital Signs Temp Pulse Resp BP Pulse Ox 98.0 F 74 24 H 109/78 89 04/18/21 10:47 04/18/21 14:42 04/18/21 13:34 04/18/21 10:47 04/18/21 14:06 Oxygen Flow Rate (L/min) 4 Oxygen Delivery Method Nasal Cannula Weight: 123 lb 14.397 oz Body Mass Index (BMI) 19.8 Intake & Output: Intake and Output for Last 24 Hours 04/16/21 04/17/21 04/18/21 23:59 23:59 23:59 Intake Total 3665 / 3905 1680 / 1680 440 / 440 Output Total 350 / 350 Balance 3665 / 3905 1330 / 1330 440 / 440 Lab / Micro Data Result Diagrams: 04/18/21 05:45 04/18/21 05:45 Labs: Laboratory Results - last 24 hr 04/17/21 21:46: POC Glucose 101 04/18/21 05:45: WBC 3.9 L, RBC 3.66 L, Hgb 11.4 L, Hct 35.8 L, MCV 97.8 H, MCH 31.1, MCHC 31.8 L, RDW Std Deviation 52.6 H, RDW Coeff of Kylie 14.4, Plt Count 75 L, MPV 10.0, Immature Gran % (Auto) 0.500, Neut % (Auto) 72.6 H, Lymph % (Auto) 23.5, [place] % (Auto) 3.4, Eos % (Auto) 0.0, Baso % (Auto) 0.0, Absolute Neuts (auto) 2.8, Absolute Lymphs (auto) 0.91, Nucleated RBC % 0 04/18/21 05:45: Sodium 138, Potassium 4.6, Chloride 108 H, Carbon Dioxide 23.0, Anion Gap 7, BUN 45 H, Creatinine 2.16 H, Estim Creat Clear Calc 24.93, Est GFR (MDRD) Af Amer 39 L, Est GFR (MDRD) Non-Af 32 L, BUN/Creatinine Ratio 20.8 H, Glucose 101, Calcium 8.3 L, Magnesium 1.9 04/18/21 05:45: Phosphorus 2.5 Micro: Microbiology 04/18/21 11:00 Stool Stool Lactoferrin - Final 04/18/21 11:00 Stool Enteric Bacteriology - Final 04/18/21 11:00 Stool Stool Occult Blood (CHRISTY) - Final Occult Blood Positive 04/15/21 12:00 Urine, Clean Catch Legionella Antigen - Final 04/15/21 12:00 Urine, Clean Catch Streptococcus pneumoniae Antigen (M - Final 04/15/21 10:55 Nasal Secretion SARS-CoV-2 Antigen (Rapid) - Final SARS-CoV-2 (COVID 19) Radiography Diagnostic Testing: Radiology Impression Hip/Pelvis X-Ray 04/18/21 00:00 IMPRESSION: Degenerative changes, no acute osseous abnormality is seen. Electronically Signed: Dariusz Spencer MD at 8:47 EST Tel , Service support , Chest X-Ray 04/18/21 12:54 IMPRESSION: Pulmonary findings appear worse. Electronically Signed: Kael Fernandez MD at 14:48 EST , Service support , Physical Exam Narrative General: Lethargic, obtunded. HEENT: Left periorbital area bruise. Subconjunctival bleed of bulbar conjunctiva. Oral: No Gingival or Mucosal Lesions/ Ulcerations Neck: Supple, No JVD, Negative Carotid Bruits Lungs: Air entry diminished in bilateral lung bases. Bilateral expiratory rhonchi and wheezing. Cardiovascular: Sinus rhythm with PVCs, Normal S1, Normal S2, No murmurs Abdomen: Bowel Sounds Present, Soft, Non Tender, Non-Distended : No renal angle tenderness. No suprapubic tenderness. Extremities: No edema, Capillary Refill Less than 3 Seconds Skin: No rashes, No breakdown Musculoskeletal: Weakness of right leg mainly quadriceps and hip muscles seems chronic. Unable to advance right leg evidence by PT. No Tenderness to Palpation of Joints or Extremities. Neurological: Cranial nerves II-XII grossly intact, DTR 2+/4 Psych/Mental Status: Flat affect Assessment & Plan Assessment/Plan (1) COVID-19: (2) Traumatic subconjunctival hemorrhage of left eye: (3) Closed left maxillary fracture: PLAN: Patient is a 70-year-old gentleman admitted with syncopal episode and hypoxia diagnosed with COVID-19 admitted to monitored bed for further management 1. Syncopal episode 04/17: Possible due to orthostasis from dehydration. Orthostatic blood pressure ordered. EEG reported no epileptiform discharges but generalized slowing of background rhythm with artifacts 04/18: Orthostatic blood pressure was positive and patient was given IV fluid 500 mL. 2. Acute kidney injury, superimposed on chronic kidney disease stage III. Baseline creatinine 1.8, creatinine on admission was 2.35. Started on IV fluids and subsequent creatinine is showing decreasing trend. 3. COVID-19 pneumonia with hypoxia and patient is started on dexamethasone. Remdesivir was not started in view of impaired kidney function and most of the duration of his symptoms not clear at this point 04/18: Patient on 3 to 4 L of oxygen, tachypneic, wheezing and rhonchi. Patient is also more lethargic and obtunded. Repeat chest x-ray shows worsening of infiltrate in bilateral lower lobes. Started on IV Zosyn. Patient also has diarrhea. Stool for enteric bacteriology panel negative. Lactoferrin positive. Stool for occult blood positive. C. difficile pending. 4. Closed head injury with Acute fractures left maxillary sinus with hemorrhage within the sinus. Plan is for conservative management only at this point Patient also could not advance right lower extremity as directed by physical therapist. Right hip x-ray with pelvis ordered. 5. Hypertension - Blood pressure controlled, home medications continued with dose adjustment as needed 6. Dyslipidemia -Patient is on statin therapy, continued at home dose 7. Alzheimer's dementia ?Supportive care 8. COPD ?Aerosol treatments as needed 9. DVT prophylaxis SCDs only in view of patient left maxillary sinus fracture with hemorrhage Heparin 5000 units subcutaneous twice daily started in view of high risk with monitoring of CBC. Charges/Coding Visit Charges Inpatient E&M: 66163 Subs Hosp L2
[2021-04-18] MEDS: Piperacil/Tazobactam 3.375 GM Q8 PREMIX IV (17:48)
[2021-04-18] MEDS: Vancomycin 125 MG/5 ML Susp PO.SYRINGE PO (21:51)
[2021-04-18] MEDS: MELATONIN 3 MG TABLET PO (21:51)
[2021-04-19] VITALS (15 sets, daily range): BP systolic 104–141; BP diastolic 48–88; PULSE 51–84; RESP 20–26; TEMP 36–38.4; O2SAT 93–96
[2021-04-19] MEDS: Acetaminophen 325 MG Tablet 650 MG PO ×2 (05:08→20:53)
[2021-04-19] MEDS: Vancomycin 125 MG/5 ML Susp PO.SYRINGE PO ×4 (05:08→22:39)
[2021-04-19] MEDS: Piperacil/Tazobactam 3.375 GM Q8 PREMIX IV ×3 (05:08→20:53)
[2021-04-19 07:01] LABS: Absolute Lymphocyte Count 0.73 X10^3/uL (0.83-4.51); Basophil# 0.01 X10^3/uL; Basophil% 0.3 % (0-1); Hematocrit 32.9 % (40-54); Hemoglobin 10.9 g/dL (13.0-16.5); Lymphocyte # 0.73 X10^3/ul (0.83-4.51); Mean Corp Hgb Conc 33.1 g/dL (32-36); Mean Corpuscular Hgb 32.1 pg (27.0-32.0); Mean Corpuscular Volume 96.8 fL (80-94); Mean Platelet Vol. 9.6 fl (6.2-12.0); Monocyte# 0.11 X10^3/uL; Monocyte% 2.9 % (0-10); NRBC Flagged by Analyzer 0 % (0-5); Neutrophil # 2.98 X10^3/uL (2.7-7.7); Neutrophil % 77.5 % (47-70); POSITIVE COUNT YES; POSITIVE MORPHOLOGY YES; Platelet Count 74 K/mm3 (150-450); RBC Distribution Width CV 14.6 % (11.6-14.6); RBC Distribution Width SD 52.1 fl (35.1-43.9); White Blood Count 3.8 K/mm3 (4.4-11.0)
[2021-04-19 07:02] LABS: Differential Indicated SCAN CRITERIA MET
[2021-04-19] MEDS: Albuterol 2.5 MG/3 ML VIAL.NEB. INHALATION ×3 (07:20→20:39)
[2021-04-19] MEDS: Budesonide Respules 0.5 MG/2 ML AMPUL.NEB. INHALATION ×2 (07:20→20:38)
[2021-04-19 07:33] LABS: Anion Gap 6 (5-15); BUN 52 mg/dL (7-18); BUN/Creat Ratio 22.4 RATIO (10-20); Calcium,Total 8.4 mg/dL (8.5-10.1); Chloride 111 mmol/L (98-107); Creatinine, Serum 2.32 mg/dL (0.70-1.30); EST Glomerular Filtration Rate 30 mL/min (>60); Est Glom Filt Rate - Afr Amer 36 mL/min (>60); Estimated Creatinine Clearance 23.21 ml/min; Glucose 113 mg/dL (74-106); Potassium 4.5 mmol/L (3.5-5.1); Sodium Level 139 mmol/L (136-145)
[2021-04-19 07:54] LABS: Platelet Estimate MKD DEC (ADEQ)
[2021-04-19 08:23] LABS: Procalcitonin 0.46 ng/mL (0.00-0.09)
[2021-04-19] MEDS: Aspirin E.C. 81 MG Tablet PO (08:54)
[2021-04-19] MEDS: Menthol/Lanolin/Calamine/Znox 113 GM Tube 1 APPLIC TOPICAL ×4 (08:54→22:38)
[2021-04-19] MEDS: Cyanocobalamin 500 MCG Tablet 1000 MCG PO (08:55)
[2021-04-19] MEDS: Famotidine 20 MG Tablet PO (08:55)
[2021-04-19] MEDS: Carvedilol 3.125 MG TABLET PO ×2 (08:55→20:53)
--- NOTE | 2021-04-19 12:03 | PCM.PN.HOSP ---
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 Objective Data Objective Data Vital Signs: Vital Signs Temp Pulse Resp BP Pulse Ox 99.6 F H 74 20 H 104/63 94 04/19/21 08:57 04/19/21 08:57 04/19/21 08:57 04/19/21 08:57 04/19/21 09:54 Oxygen Flow Rate (L/min) 3 Oxygen Delivery Method Nasal Cannula Weight: 123 lb 14.397 oz Body Mass Index (BMI) 19.8 Intake & Output: Intake and Output for Last 24 Hours 04/17/21 04/18/21 04/19/21 23:59 23:59 23:59 Intake Total 1680 / 1680 670 / 670 0 / 0 Output Total 350 / 350 Balance 1330 / 1330 670 / 670 0 / 0 Lab / Micro Data Result Diagrams: 04/19/21 06:00 04/19/21 06:10 Labs: Laboratory Results - last 24 hr 04/18/21 06:50: B-Natriuretic Peptide 348.0 H 04/19/21 06:00: WBC 3.8 L, RBC 3.40 L, Hgb 10.9 L, Hct 32.9 L, MCV 96.8 H, MCH 32.1 H, MCHC 33.1, RDW Std Deviation 52.1 H, RDW Coeff of Kylie 14.6, Plt Count 74 L, MPV 9.6, Immature Gran % (Auto) 0.300, Neut % (Auto) 77.5 H, Lymph % (Auto) 19.0, [place] % (Auto) 2.9, Eos % (Auto) 0.0, Baso % (Auto) 0.3, Absolute Neuts (auto) 3.0, Absolute Lymphs (auto) 0.73 L, Nucleated RBC % 0, Platelet Estimate MKD DEC 04/19/21 06:10: Sodium 139, Potassium 4.5, Chloride 111 H, Carbon Dioxide 22.0, Anion Gap 6, BUN 52 H, Creatinine 2.32 H, Estim Creat Clear Calc 23.21, Est GFR (MDRD) Af Amer 36 L, Est GFR (MDRD) Non-Af 30 L, BUN/Creatinine Ratio 22.4 H, Glucose 113 H, Calcium 8.4 L 04/19/21 06:10: Procalcitonin 0.46 H Micro: Microbiology 04/18/21 11:00 Stool Stool Lactoferrin - Final 04/18/21 11:00 Stool Enteric Bacteriology - Final 04/18/21 11:00 Stool C. difficile GDH Antigen & Toxins - Final 04/18/21 11:00 Stool C. difficile DNA Amplification - Final 04/18/21 11:00 Stool Stool Occult Blood (CHRISTY) - Final Occult Blood Positive 04/15/21 12:00 Urine, Clean Catch Legionella Antigen - Final 04/15/21 12:00 Urine, Clean Catch Streptococcus pneumoniae Antigen (M - Final 04/15/21 10:55 Nasal Secretion SARS-CoV-2 Antigen (Rapid) - Final SARS-CoV-2 (COVID 19) Radiography Diagnostic Testing: Radiology Impression Chest X-Ray 04/18/21 12:54 IMPRESSION: Pulmonary findings appear worse. Electronically Signed: Kael Fernandez MD at 14:48 EST , Service support , Physical Exam Narrative General: Awake but does not respond verbally to simple questions. Minimal understanding. HEENT: Left periorbital area bruise. Subconjunctival bleed of bulbar conjunctiva. Unclear about the vision acuity as patient does not respond with finger counting or head movement. Oral: No Gingival or Mucosal Lesions/ Ulcerations Neck: Supple, No JVD, Negative Carotid Bruits Lungs: Air entry diminished in bilateral lung bases. Mild bilateral expiratory rhonchi Cardiovascular: Sinus rhythm with PVCs, Normal S1, Normal S2, No murmurs Abdomen: Bowel Sounds Present, Soft, Non Tender, Non-Distended : No renal angle tenderness. No suprapubic tenderness. Extremities: No edema, Capillary Refill Less than 3 Seconds Skin: No rashes, No breakdown Musculoskeletal: Weakness of right leg mainly quadriceps and hip muscles seems chronic. Unable to advance right leg evidence by PT. No Tenderness to Palpation of Joints or Extremities. Neurological: Cranial nerves II-XII grossly intact, DTR 2+/4 Psych/Mental Status: Flat affect Assessment & Plan Assessment/Plan (1) COVID-19: (2) Traumatic subconjunctival hemorrhage of left eye: (3) Closed left maxillary fracture: PLAN: Patient is a 70-year-old gentleman admitted with syncopal episode and hypoxia diagnosed with COVID-19 admitted to monitored bed for further management 1. Syncopal episode 04/17: Possible due to orthostasis from dehydration. Orthostatic blood pressure ordered. EEG reported no epileptiform discharges but generalized slowing of background rhythm with artifacts 04/18: Orthostatic blood pressure was positive and patient was given IV fluid 500 mL. 04/19: BP 112/48. 2. Acute kidney injury, superimposed on chronic kidney disease stage III. Baseline creatinine 1.8, creatinine on admission was 2.35. Started on IV fluids and subsequent creatinine is showing decreasing trend. 3. COVID-19 pneumonia with hypoxia and patient is started on dexamethasone. Remdesivir was not started in view of impaired kidney function and most of the duration of his symptoms not clear at this point 04/18: Patient on 3 to 4 L of oxygen, tachypneic, wheezing and rhonchi. Patient is also more lethargic and obtunded. Repeat chest x-ray shows worsening of infiltrate in bilateral lower lobes. Started on IV Zosyn. Patient also has diarrhea. Stool for enteric bacteriology panel negative. Lactoferrin positive. Stool for occult blood positive. 04/19: Patient having fever T-max 101.2 Fahrenheit. On broad-spectrum antibiotic. C. difficile toxin negative with positive C. difficile PCR suggestive of recent infection. Started on vancomycin liquid by nighttime hospitalist Mild normocytic normocytic anemia. Patient hemoglobin did not show major change 4. Closed head injury with Acute fractures left maxillary sinus with hemorrhage within the sinus. Plan is for conservative management only at this point Patient also could not advance right lower extremity as directed by physical therapist. Right hip x-ray with pelvis ordered. 5. Hypertension - Blood pressure controlled, home medications continued with dose adjustment as needed 6. Dyslipidemia -Patient is on statin therapy, continued at home dose 7. Alzheimer's dementia ?Supportive care 8. COPD ?Aerosol treatments as needed 9. DVT prophylaxis SCDs only in view of patient left maxillary sinus fracture with hemorrhage Heparin 5000 units subcutaneous twice daily started in view of high risk with monitoring of CBC. Charges/Coding Visit Charges Inpatient E&M: 99151 Subs Hosp L2
[2021-04-19] MEDS: MELATONIN 3 MG TABLET PO (20:53)
[2021-04-20] VITALS (18 sets, daily range): BP systolic 109–164; BP diastolic 65–92; PULSE 53–93; RESP 16–24; TEMP 36.1–37.8; O2SAT 68–100
[2021-04-20] MEDS: Piperacil/Tazobactam 3.375 GM Q8 PREMIX IV ×3 (05:53→21:57)
[2021-04-20] MEDS: Vancomycin 125 MG/5 ML Susp PO.SYRINGE PO ×3 (05:53→16:54)
[2021-04-20] MEDS: Budesonide Respules 0.5 MG/2 ML AMPUL.NEB. INHALATION ×2 (07:15→19:15)
[2021-04-20] MEDS: Albuterol 2.5 MG/3 ML VIAL.NEB. INHALATION ×3 (07:15→19:15)
[2021-04-20 08:06] LABS: Absolute Lymphocyte Count 0.89 X10^3/uL (0.83-4.51); Absolute Neutrophil Count 2.8 X10^3/uL (2.0-7.7); Hematocrit 34.4 % (40-54); Hemoglobin 10.9 g/dL (13.0-16.5); Lymphocyte # 0.89 X10^3/ul (0.83-4.51); Lymphocyte % 22.9 % (19-41); Mean Corp Hgb Conc 31.7 g/dL (32-36); Mean Corpuscular Hgb 31.5 pg (27.0-32.0); Mean Corpuscular Volume 99.4 fL (80-94); Mean Platelet Vol. 10.1 fl (6.2-12.0); Monocyte# 0.21 X10^3/uL; Monocyte% 5.4 % (0-10); NRBC Flagged by Analyzer 0 % (0-5); Neutrophil # 2.77 X10^3/uL (2.7-7.7); Neutrophil % 71.4 % (47-70); POSITIVE COUNT YES; POSITIVE MORPHOLOGY YES; Platelet Count 81 K/mm3 (150-450); RBC Distribution Width CV 14.8 % (11.6-14.6); RBC Distribution Width SD 54.4 fl (35.1-43.9); Red Blood Count 3.46 M/mm3 (4.6-6.2); White Blood Count 3.9 K/mm3 (4.4-11.0)
[2021-04-20 08:39] LABS: Differential Indicated SCAN CRITERIA MET
[2021-04-20 09:26] LABS: Anion Gap 8 (5-15); BUN 56 mg/dL (7-18); BUN/Creat Ratio 20.4 RATIO (10-20); Calcium,Total 8.4 mg/dL (8.5-10.1); Chloride 110 mmol/L (98-107); Creatinine, Serum 2.74 mg/dL (0.70-1.30); EST Glomerular Filtration Rate 24 mL/min (>60); Est Glom Filt Rate - Afr Amer 30 mL/min (>60); Estimated Creatinine Clearance 18.61 ml/min; Ferritin 2586 ng/mL (26-388); Glucose 96 mg/dL (74-106); Potassium 4.4 mmol/L (3.5-5.1); Sodium Level 142 mmol/L (136-145)
[2021-04-20] MEDS: Famotidine 20 MG Tablet PO (11:17)
[2021-04-20] MEDS: Menthol/Lanolin/Calamine/Znox 113 GM Tube 1 APPLIC TOPICAL ×4 (11:17→21:57)
[2021-04-20] MEDS: Aspirin E.C. 81 MG Tablet PO (11:17)
[2021-04-20] MEDS: Cyanocobalamin 500 MCG Tablet 1000 MCG PO (11:17)
[2021-04-20] MEDS: Carvedilol 3.125 MG TABLET PO (11:17)
--- NOTE | 2021-04-20 12:29 | PCM.PN.HOSP ---
Subjective Subjective the patient is confused, disoriented to time, place and person. He is in crawling position. Hardly speaks few words, poor understanding. I talked to the patient's and brother on the phone. Objective Data Objective Data Vital Signs: Vital Signs Temp Pulse Resp BP Pulse Ox 98.5 F 74 20 H 143/89 H 92 04/20/21 09:31 04/20/21 09:31 04/20/21 09:31 04/20/21 09:31 04/20/21 09:31 Oxygen Flow Rate (L/min) 6 Oxygen Delivery Method Nasal Cannula Weight: 117 lb 4.575 oz Body Mass Index (BMI) 19.8 Intake & Output: Intake and Output for Last 24 Hours 04/18/21 04/19/21 04/20/21 23:59 23:59 23:59 Intake Total 670 / 670 340 / 340 220 / 220 Balance 670 / 670 340 / 340 220 / 220 Lab / Micro Data Result Diagrams: 04/20/21 07:08 04/20/21 07:08 Labs: Laboratory Results - last 24 hr 04/20/21 07:08: WBC 3.9 L, RBC 3.46 L, Hgb 10.9 L, Hct 34.4 L, MCV 99.4 H, MCH 31.5, MCHC 31.7 L, RDW Std Deviation 54.4 H, RDW Coeff of Kylie 14.8 H, Plt Count 81 L, MPV 10.1, Immature Gran % (Auto) 0.300, Neut % (Auto) 71.4 H, Lymph % (Auto) 22.9, [place] % (Auto) 5.4, Eos % (Auto) 0.0, Baso % (Auto) 0.0, Absolute Neuts (auto) 2.8, Absolute Lymphs (auto) 0.89, Nucleated RBC % 0 04/20/21 07:08: Sodium 142, Potassium 4.4, Chloride 110 H, Carbon Dioxide 24.0, Anion Gap 8, BUN 56 H, Creatinine 2.74 H, Estim Creat Clear Calc 18.61, Est GFR (MDRD) Af Amer 30 L, Est GFR (MDRD) Non-Af 24 L, BUN/Creatinine Ratio 20.4 H, Glucose 96, Calcium 8.4 L, Ferritin 2586 H, C-React Prot Ext Range 90.10 H Micro: Microbiology 04/18/21 11:00 Stool Stool Lactoferrin - Final 04/18/21 11:00 Stool Enteric Bacteriology - Final 04/18/21 11:00 Stool C. difficile GDH Antigen & Toxins - Final 04/18/21 11:00 Stool C. difficile DNA Amplification - Final 04/18/21 11:00 Stool Stool Occult Blood (CHRISTY) - Final Occult Blood Positive 04/15/21 12:00 Urine, Clean Catch Legionella Antigen - Final 04/15/21 12:00 Urine, Clean Catch Streptococcus pneumoniae Antigen (M - Final 04/15/21 10:55 Nasal Secretion SARS-CoV-2 Antigen (Rapid) - Final SARS-CoV-2 (COVID 19) Physical Exam Narrative General: Confused, disoriented, intermittent wakefulness on verbal command. Poor insight and understanding HEENT: Left periorbital area bruise. Subconjunctival bleed of bulbar conjunctiva. patient does not respond with finger counting or head movement unclear whether he does not understand or does not see Oral: No Gingival or Mucosal Lesions/ Ulcerations Neck: Supple, No JVD, Negative Carotid Bruits Lungs: Air entry diminished in bilateral lung bases. Mild bilateral expiratory rhonchi Cardiovascular: Sinus rhythm with PVCs, Normal S1, Normal S2, No murmurs Abdomen: Bowel Sounds Present, Soft, Non Tender, Non-Distended : Incontinent. No suprapubic tenderness. Extremities: No edema, Capillary Refill Less than 3 Seconds Skin: No rashes, No breakdown Musculoskeletal: Weakness of right leg mainly quadriceps and hip muscles seems chronic. Crawled in position No Tenderness to Palpation of Joints or Extremities. Neurological: Cranial nerves II-XII grossly intact, DTR 2+/4. Not following command to evaluate muscle strength Psych/Mental Status: Confused disoriented Assessment & Plan Assessment/Plan (1) COVID-19: (2) Traumatic subconjunctival hemorrhage of left eye: (3) Closed left maxillary fracture: PLAN: Patient is a 70-year-old gentleman admitted with syncopal episode and hypoxia diagnosed with COVID-19 admitted to monitored bed for further management 1. Syncopal episode 04/17: Possible due to orthostasis from dehydration. Orthostatic blood pressure ordered. EEG reported no epileptiform discharges but generalized slowing of background rhythm with artifacts 04/18: Orthostatic blood pressure was positive and patient was given IV fluid 500 mL. 04/19: BP 112/48. 04/20: Confused and disoriented possible encephalopathy from metabolic infectious. 2. Acute kidney injury, superimposed on chronic kidney disease stage III. Baseline creatinine 1.8, creatinine on admission was 2.35. Started on IV fluids and subsequent creatinine is showing decreasing trend. 3. COVID-19 pneumonia with secondary bacterial superinfection with hypoxia and C. difficile colitis: And patient is started on dexamethasone. Remdesivir was not started in view of impaired kidney function and most of the duration of his symptoms not clear at this point 04/18: Patient on 3 to 4 L of oxygen, tachypneic, wheezing and rhonchi. Patient is also more lethargic and obtunded. Repeat chest x-ray shows worsening of infiltrate in bilateral lower lobes. Started on IV Zosyn. Patient also has diarrhea. Stool for enteric bacteriology panel negative. Lactoferrin positive. Stool for occult blood positive. I called patient's and daughter but they did not belt picker phone and went to voicemail set up to leave message. 04/19: Patient having fever T-max 101.2 Fahrenheit. On broad-spectrum antibiotic. C. difficile toxin negative with positive C. difficile PCR suggestive of recent infection. Started on vancomycin liquid by nighttime hospitalist Mild normocytic normocytic anemia. Patient hemoglobin did not show major change 04/20: Intermittent fever. On antibiotic. I gave phone call to patient's and patient's daughter and talked to both of them and patient's son. Gave clinical update regarding Covid pneumonia with bacterial superinfection, kidney dysfunction, hypoxia, C. difficile colitis. 4. Closed head injury with Acute fractures left maxillary sinus with hemorrhage within the sinus. Plan is for conservative management only at this point Patient also could not advance right lower extremity as directed by physical therapist. Right hip x-ray with pelvis ordered. 5. Hypertension - Blood pressure controlled, home medications continued with dose adjustment as needed 6. Dyslipidemia -Patient is on statin therapy, continued at home dose 7. Alzheimer's dementia ?Supportive care 8. COPD ?Aerosol treatments as needed 9. DVT prophylaxis SCDs only in view of patient left maxillary sinus fracture with hemorrhage Heparin 5000 units subcutaneous twice daily started in view of high risk with monitoring of CBC. Living will/advanced directive/end of life care: Patient does have living will or advanced directive. His is power of control officer for health. After discussion of benefits/risks procedures involved with full code, DNR CC arrest and DNR CC, the patient's , daughter and son all agree for DNRCC arrest with no intubation Patient doesn't want artificial life support including intubation, tube feed, ventilator and/chest compression, central venous catheter, vasopressor and DC shock if needed Total time spent in [id number] encounter in discussion of advanced directive 16 minutes. Active Medications Acetaminophen (Acetaminophen 325 Mg Tablet) 650 mg PO Q6H PRN PRN PRN Reason: Pain Score 1-10/Temp > 100.7 F Last Admin: 04/19/21 20:53 Dose: 650 mg Documented by: Albuterol Sulfate (Albuterol 2.5 Mg/3 Ml Vial.Neb.) 2.5 mg INHALATION Q6HWA.RT [facility] Last Admin: 04/20/21 07:15 Dose: 2.5 mg Documented by: Aspirin (Aspirin E.C. 81 Mg Tablet) 81 mg PO BREAKFAST [facility] Last Admin: 04/20/21 11:17 Dose: 81 mg Documented by: Budesonide (Budesonide Respules 0.5 Mg/2 Ml Ampul.Neb.) 0.5 mg INHALATION Q12H.RT [facility] Last Admin: 04/20/21 07:15 Dose: 0.5 mg Documented by: Calamine/Phenol (Menthol/Lanolin/Calamine/Znox 113 Gm Tube) 1 applic TOPICAL 4X/DAY [facility]; Protocol Last Admin: 04/20/21 11:17 Dose: 1 applic Documented by: Carvedilol (Carvedilol 3.125 Mg Tablet) 3.125 mg PO BID [facility] Last Admin: 04/20/21 11:17 Dose: 3.125 mg Documented by: Cyanocobalamin (Cyanocobalamin 500 Mcg Tablet) 1,000 mcg PO DAILY [facility] Last Admin: 04/20/21 11:17 Dose: 1,000 mcg Documented by: Famotidine (Famotidine 20 Mg Tablet) 20 mg PO DAILY [facility] Last Admin: 04/20/21 11:17 Dose: 20 mg Documented by: Sodium Chloride () 250 mls @ 15 mls/hr IV .[id number] PRN PRN Reason: Saline Flush Sodium Chloride () 250 mls @ 15 mls/hr IV .[id number] PRN PRN Reason: Additional IVPB Infusion Piperacillin Sod/Tazobactam Sod (Zosyn) 3.375 gm in 50 mls @ 12.5 mls/hr IV Q8 [facility] Last Infusion: 04/20/21 11:18 Dose: Infused Documented by: Sodium Chloride () 1,000 mls @ 75 mls/hr IV .[id number] [facility] Stop: 04/21/21 01:44 Melatonin (Melatonin 3 Mg Tablet) 3 mg PO QHS PRN PRN PRN Reason: INSOMNIA Last Admin: 04/19/21 20:53 Dose: 3 mg Documented by: Nitroglycerin (Nitroglycerin (Inpatient Use) 0.4 Mg Tab.Subl) 0.4 mg SL Q5M PRN PRN Reason: CARDIAC/CHEST PAIN Ondansetron HCl (Ondansetron 4 Mg/2 Ml Vial) 4 mg IV Q8H PRN PRN PRN Reason: NAUSEA/VOMITING Sodium Chloride (0.9% Saline Lock 10 Ml Syringe) 10 - 40 ml IV UD PRN PRN Reason: SALINE FLUSH Last Admin: 04/16/21 20:41 Dose: 10 ml Documented by: Vancomycin HCl (Vancomycin 125 Mg/5 Ml Susp Po.Syringe) 125 mg PO Q6 [facility] Last Admin: 04/20/21 11:16 Dose: 125 mg Documented by: Charges/Coding Visit Charges Inpatient E&M: 08670 Subs Hosp L2 Procedures Hospitalists Procedures: 42715 Advncd Care Plan 30 Min
[2021-04-20] MEDS: 0.9% Normal Saline 1,000 ML 75 ML IV (13:41)
--- NOTE | 2021-04-20 18:05 | NURSING ---
Pt consistently coughing on dinner with each bite. Made NPO.
[2021-04-21] VITALS (16 sets, daily range): BP systolic 137–184; BP diastolic 87–103; PULSE 71–94; RESP 18–29; TEMP 36.6–37.7; O2SAT 92–97
[2021-04-21] MEDS: Piperacil/Tazobactam 3.375 GM Q8 PREMIX IV (06:16)
[2021-04-21 07:16] LABS: Absolute Lymphocyte Count 0.57 X10^3/uL (0.83-4.51); Absolute Neutrophil Count 1.9 X10^3/uL (2.0-7.7); Basophil# 0.01 X10^3/uL; Basophil% 0.4 % (0-1); Hemoglobin 11.3 g/dL (13.0-16.5); Lymphocyte # 0.57 X10^3/ul (0.83-4.51); Lymphocyte % 20.4 % (19-41); Mean Corp Hgb Conc 30.5 g/dL (32-36); Mean Corpuscular Hgb 30.7 pg (27.0-32.0); Mean Corpuscular Volume 100.5 fL (80-94); Monocyte# 0.27 X10^3/uL; Monocyte% 9.6 % (0-10); NRBC Flagged by Analyzer 0 % (0-5); Neutrophil # 1.94 X10^3/uL (2.7-7.7); Neutrophil % 69.2 % (47-70); POSITIVE COUNT YES; POSITIVE DIFFERENTIAL YES; POSITIVE MORPHOLOGY YES; Platelet Count 85 K/mm3 (150-450); RBC Distribution Width CV 14.7 % (11.6-14.6); RBC Distribution Width SD 54.6 fl (35.1-43.9); Red Blood Count 3.68 M/mm3 (4.6-6.2); White Blood Count 2.8 K/mm3 (4.4-11.0)
[2021-04-21 07:30] LABS: Anion Gap 8 (5-15); BUN 50 mg/dL (7-18); BUN/Creat Ratio 18.5 RATIO (10-20); Calcium,Total 8.6 mg/dL (8.5-10.1); Chloride 115 mmol/L (98-107); EST Glomerular Filtration Rate 25 mL/min (>60); Est Glom Filt Rate - Afr Amer 30 mL/min (>60); Estimated Creatinine Clearance 19.38 ml/min; Glucose 90 mg/dL (74-106); Potassium 4.2 mmol/L (3.5-5.1); Sodium Level 146 mmol/L (136-145)
[2021-04-21 07:35] LABS: Differential Indicated SCAN CRITERIA MET
[2021-04-21] MEDS: Albuterol 2.5 MG/3 ML VIAL.NEB. INHALATION (07:45)
[2021-04-21] MEDS: Budesonide Respules 0.5 MG/2 ML AMPUL.NEB. INHALATION (07:45)
[2021-04-21 08:43] LABS: Platelet Estimate MOD DEC (ADEQ)
[2021-04-21 08:44] LABS: Hypochromasia RARE; Macrocytosis 1+
[2021-04-21] MEDS: Menthol/Lanolin/Calamine/Znox 113 GM Tube 1 APPLIC TOPICAL ×4 (10:54→21:52)
--- NOTE | 2021-04-21 12:50 | PCM.PN.HOSP ---
Subjective Subjective Patient looks more awake than yesterday. I talked to me with few words. Low-grade fever last night but afebrile in the morning. Mild leukopenia and thrombocytopenia. Objective Data Objective Data Vital Signs: Vital Signs Temp Pulse Resp BP Pulse Ox 98.4 F 90 19 H 139/99 H 96 04/21/21 10:25 04/21/21 11:00 04/21/21 10:25 04/21/21 10:25 04/21/21 10:25 Oxygen Flow Rate (L/min) 6 Oxygen Delivery Method Nasal Cannula Weight: 120 lb 5.958 oz Body Mass Index (BMI) 19.8 Intake & Output: Intake and Output for Last 24 Hours 04/19/21 04/20/21 04/21/21 23:59 23:59 23:59 Intake Total 340 / 340 270 / 270 1100 / 1100 Balance 340 / 340 270 / 270 1100 / 1100 Lab / Micro Data Result Diagrams: 04/21/21 06:16 04/21/21 06:16 Labs: Laboratory Results - last 24 hr 04/21/21 06:16: WBC 2.8 L, RBC 3.68 L, Hgb 11.3 L, Hct 37.0 L, MCV 100.5 H, MCH 30.7, MCHC 30.5 L, RDW Std Deviation 54.6 H, RDW Coeff of Kylie 14.7 H, Plt Count 85 L, MPV 10.0, Immature Gran % (Auto) 0.400, Neut % (Auto) 69.2, Lymph % (Auto) 20.4, Beckham % (Auto) 9.6, Eos % (Auto) 0.0, Baso % (Auto) 0.4, Absolute Neuts (auto) 1.9 L, Absolute Lymphs (auto) 0.57 L, Nucleated RBC % 0, Diff Path Review May foll, Platelet Estimate MOD DEC, Hypochromasia RARE, Macrocytosis 1+ 04/21/21 06:16: Sodium 146 H, Potassium 4.2, Chloride 115 H, Carbon Dioxide 23.0, Anion Gap 8, BUN 50 H, Creatinine 2.70 H, Estim Creat Clear Calc 19.38, Est GFR (MDRD) Af Amer 30 L, Est GFR (MDRD) Non-Af 25 L, BUN/Creatinine Ratio 18.5, Glucose 90, Calcium 8.6 Micro: Microbiology 12/30/21 11:00 Stool Stool Lactoferrin - Final 04/18/21 11:00 Stool Enteric Bacteriology - Final 04/18/21 11:00 Stool C. difficile GDH Antigen & Toxins - Final 04/18/21 11:00 Stool C. difficile DNA Amplification - Final 04/18/21 11:00 Stool Stool Occult Blood (CHRISTY) - Final Occult Blood Positive 04/15/21 12:00 Urine, Clean Catch Legionella Antigen - Final 04/15/21 12:00 Urine, Clean Catch Streptococcus pneumoniae Antigen (M - Final 04/15/21 10:55 Nasal Secretion SARS-CoV-2 Antigen (Rapid) - Final SARS-CoV-2 (COVID 19) Physical Exam Narrative General: Confused, disoriented but more awake today poor insight and understanding HEENT: Left periorbital area bruise. Subconjunctival bleed of bulbar conjunctiva. patient does not respond with finger counting or head movement unclear whether he does not understand or does not see Oral: No Gingival or Mucosal Lesions/ Ulcerations Neck: Supple, No JVD, Negative Carotid Bruits Lungs: Air entry diminished in bilateral lung bases. Mild bilateral expiratory rhonchi and hypoxia Cardiovascular: Sinus rhythm with PVCs, Normal S1, Normal S2, No murmurs Abdomen: Bowel Sounds Present, Soft, Non Tender, Non-Distended : Incontinent on the diaper. No suprapubic tenderness. Extremities: No edema, Capillary Refill Less than 3 Seconds Skin: No rashes, No breakdown Musculoskeletal: Weakness of right leg mainly quadriceps and hip muscles seems chronic.No Tenderness to Palpation of Joints or Extremities. Neurological: Cranial nerves II-XII grossly intact, DTR 2+/4. Not following command to evaluate muscle strength Psych/Mental Status: Confused disoriented Assessment & Plan Assessment/Plan (1) COVID-19: (2) Traumatic subconjunctival hemorrhage of left eye: (3) Closed left maxillary fracture: PLAN: Patient is a 70-year-old gentleman admitted with syncopal episode and hypoxia diagnosed with COVID-19 admitted to monitored bed for further management 1. Syncopal episode 04/17: Possible due to orthostasis from dehydration. Orthostatic blood pressure ordered. EEG reported no epileptiform discharges but generalized slowing of background rhythm with artifacts 04/18: Orthostatic blood pressure was positive and patient was given IV fluid 500 mL. 04/19: BP 112/48. 1/: Confused and disoriented possible encephalopathy from metabolic infectious. 2. Acute kidney injury, superimposed on chronic kidney disease stage III. Baseline creatinine 1.8, creatinine on admission was 2.35. Started on IV fluids and subsequent creatinine is showing decreasing trend. 3. COVID-19 pneumonia with secondary bacterial superinfection with hypoxia and C. difficile colitis: And patient is started on dexamethasone. Remdesivir was not started in view of impaired kidney function and most of the duration of his symptoms not clear at this point 04/18: Patient on 3 to 4 L of oxygen, tachypneic, wheezing and rhonchi. Patient is also more lethargic and obtunded. Repeat chest x-ray shows worsening of infiltrate in bilateral lower lobes. Started on IV Zosyn. Patient also has diarrhea. Stool for enteric bacteriology panel negative. Lactoferrin positive. Stool for occult blood positive. 04/19: Patient having fever T-max 101.2 Fahrenheit. On broad-spectrum antibiotic. C. difficile toxin negative with positive C. difficile PCR suggestive of recent infection. Started on vancomycin liquid by nighttime hospitalist Mild normocytic normocytic anemia. Patient hemoglobin did not show major change /: Intermittent fever. On antibiotic. I gave phone call to patient's and patient's daughter and talked to both of them and patient's son. Gave clinical update regarding Covid pneumonia with bacterial superinfection, kidney dysfunction, hypoxia, C. difficile colitis. 1/2: Mild low-grade fever. Leukopenia today and thrombocytopenia since admission but is stable. Baby aspirin frequency increased to every other day. Heparin subcu was discontinued 4. Closed head injury with Acute fractures left maxillary sinus with hemorrhage within the sinus. Plan is for conservative management only at this point Patient also could not advance right lower extremity as told by physical therapist. Right hip x-ray with pelvis ordered. 1/2: No acute osseous abnormality found. Flexion extension at hip and knee joints are not tender. 5. Hypertension - Blood pressure controlled, home medications continued with dose adjustment as needed 6. Dyslipidemia -Patient is on statin therapy, continued at home dose 7. Alzheimer's dementia ?Supportive care 8. COPD ?Aerosol treatments as needed 9. DVT prophylaxis SCDs only in view of patient left maxillary sinus fracture with hemorrhage. Heparin subcu discontinued in view of thrombocytopenia. I talked to the patient's daughter and gave clinical update with Living will/advanced directive/end of life care: Patient does have living will or advanced directive. His is power of immigration attorney for health. After discussion of benefits/risks procedures involved with full code, DNR CC arrest and DNR CC, the patient's , daughter and son all agree for DNRCC arrest with no intubation Patient doesn't want artificial life support including intubation, tube feed, ventilator and/chest compression, central venous catheter, vasopressor and DC shock if needed Total time spent in [id number] encounter in discussion of advanced directive 16 minutes. Charges/Coding Visit Charges Inpatient E&M: 60498 Subs Hosp L2
--- NOTE | 2021-04-21 14:00 | RAD_ITS ---
STUDY: X-RAY CHEST REASON FOR EXAM: Male, 70 years old. Hypoxia, Covid 19 pneumonia TECHNIQUE: Single AP portable view of the chest. COMPARISON: 04/18/2021. FINDINGS: Patchy bilateral infiltrates predominantly in the lower lungs. Slightly more prominent markings in the upper lungs. There is no demonstrated pleural abnormality. Normal size heart. Normal mediastinum and estefani. Normal visualized pulmonary arteries. Stable osseous structures. There is no demonstrated abnormality of the visualized soft tissue structures of the upper abdomen. RAD/Chest 1 View (Portable) IMPRESSION: Bilateral infiltrates slightly increased in the upper lungs. Electronically Signed: Sergei Mckenna, at 15:27 EST Tel , Service support ,
[2021-04-21] MEDS: Haloperidol Lactate 5 MG/ML Vial 2 MG IV (18:59)
[2021-04-21] MEDS: proMETHazine 25 MG/ML Syringe 12.5 MG IM (18:59)
[2021-04-22] VITALS (18 sets, daily range): BP systolic 137–170; BP diastolic 88–109; PULSE 78–105; RESP 17–30; TEMP 36.6–36.9; O2SAT 92–98
--- NOTE | 2021-04-22 01:35 | CPS ---
Pt kept taking off his aerosol mask off, and his o2 cannula as well. RN aware
[2021-04-22 07:22] LABS: Absolute Lymphocyte Count 0.78 X10^3/uL (0.83-4.51); Absolute Neutrophil Count 1.8 X10^3/uL (2.0-7.7); Basophil# 0.01 X10^3/uL; Basophil% 0.4 % (0-1); Eosinophil# 0.01 X10^3/uL; Eosinophils% 0.4 % (0-5); Hemoglobin 11.8 g/dL (13.0-16.5); Lymphocyte # 0.78 X10^3/ul (0.83-4.51); Lymphocyte % 27.6 % (19-41); Mean Corp Hgb Conc 31.9 g/dL (32-36); Mean Corpuscular Hgb 31.1 pg (27.0-32.0); Mean Corpuscular Volume 97.6 fL (80-94); Monocyte# 0.25 X10^3/uL; Monocyte% 8.8 % (0-10); NRBC Flagged by Analyzer 0 % (0-5); Neutrophil # 1.76 X10^3/uL (2.7-7.7); Neutrophil % 62.1 % (47-70); POSITIVE COUNT YES; POSITIVE MORPHOLOGY YES; Platelet Count 82 K/mm3 (150-450); RBC Distribution Width CV 14.6 % (11.6-14.6); RBC Distribution Width SD 53.1 fl (35.1-43.9); Red Blood Count 3.79 M/mm3 (4.6-6.2); White Blood Count 2.8 K/mm3 (4.4-11.0)
[2021-04-22] MEDS: Budesonide Respules 0.5 MG/2 ML AMPUL.NEB. INHALATION ×2 (07:22→17:57)
[2021-04-22] MEDS: Albuterol 2.5 MG/3 ML VIAL.NEB. INHALATION ×3 (07:22→17:57)
[2021-04-22 07:32] LABS: Differential Indicated SCAN CRITERIA MET
[2021-04-22 07:54] LABS: Anion Gap 7 (5-15); BUN 52 mg/dL (7-18); BUN/Creat Ratio 19.3 RATIO (10-20); Calcium,Total 8.9 mg/dL (8.5-10.1); Chloride 118 mmol/L (98-107); EST Glomerular Filtration Rate 25 mL/min (>60); Est Glom Filt Rate - Afr Amer 30 mL/min (>60); Estimated Creatinine Clearance 19.42 ml/min; Glucose 113 mg/dL (74-106); Potassium 4.3 mmol/L (3.5-5.1); Sodium Level 148 mmol/L (136-145)
[2021-04-22] MEDS: 0.9% Saline Lock 10 ML Syringe IV ×2 (09:21→12:55)
[2021-04-22] MEDS: Carvedilol 3.125 MG TABLET PO (09:22)
[2021-04-22] MEDS: proMETHazine 25 MG/ML Syringe 12.5 MG IM (09:22)
[2021-04-22] MEDS: Haloperidol Lactate 5 MG/ML Vial 2 MG IV (09:22)
[2021-04-22] MEDS: QUEtiapine 25 MG Tablet 50 MG PO (09:22)
[2021-04-22] MEDS: Menthol/Lanolin/Calamine/Znox 113 GM Tube 1 APPLIC TOPICAL ×4 (09:25→22:10)
--- NOTE | 2021-04-22 10:34 | EKG12_ITS ---
Test Reason : AGITATION Blood Pressure : / mmHG Vent. Rate : 086 BPM Atrial Rate : 258 BPM P-R Int : 000 ms QRS Dur : 070 ms QT Int : 374 ms P-R-T Axes : 063 062 007 degrees QTc Int : 447 ms Sinus rhythm Voltage criteria for left ventricular hypertrophy Nonspecific ST abnormality Abnormal ECG When compared with ECG of 15-APR-2021 11:21, Current undetermined rhythm precludes rhythm comparison, needs review Confirmed by GIULIANO ROPER, MADELEINE ([id number]), department editor FROILAN NEWTON ([id number]) on 05/02/2021 1:56:27 PM Referred By: BARRINGTON Confirmed By:MARISELA NOBLES MD
--- NOTE | 2021-04-22 11:06 | CASEMGMT ---
Social Work Telephone call to [facility], admissions. No answer. VM left inquired about how much oxygen [facility] is able to accommodate as patient is currently on 6L. Will continue to follow. Jai ANAND, IRON
--- NOTE | 2021-04-22 12:35 | VDLE_ITS ---
Reason For Study: Pain RIGHT LEFT GSV is normal. GSV is normal. CFV, FV and PopV are compressible. CFV, FV and PopV are compressible. T/P Trunk is compressible. T/P Trunk is compressible. PTV is compressible. PTV is compressible. RT PerV is compressible. LT PerV is compressible. Procedure This is a venous duplex using B-mode, color flow and spectral Doppler. The exam was abbreviated due to the COVID 19 protocol. Exam performed portable in patient room. The study was technically difficult. A preliminary report was called and/or faxed to RN. VL/Venous Duplex US - Jamshid Extrem Interpretation Summary No evidence for acute deep venous thrombosis bilateral lower extremities with p atent and compressible bilateral great saphenous veins. Abbreviated COVID-19 protocol uti lized The examination was noted to be technically difficult Ordering Physician: Micheal Kulkarni Referring Physician: Scott Steven Performed By: Domenica Cameron RVT
[2021-04-22] MEDS: Enoxaparin 30 MG/0.3 ML Syringe SC ×2 (12:55→22:11)
[2021-04-22] MEDS: Vancomycin 125 MG/5 ML Susp PO.SYRINGE PO ×2 (12:56→17:50)
[2021-04-22] MEDS: dexAMETHasone 4 MG/ML Vial 6 MG IV (12:56)
[2021-04-22 13:46] LABS: BNP,B-Type NATRIURETIC PEPTIDE 156.4 pg/mL (0-100); D-Dimer Quantitative (DVT/PE) 11.04 FEU/ug/m (0.27-0.49)
[2021-04-22 13:53] LABS: AST(SGOT) 95 U/L (15-37); Alanine Aminotransfer ALT/SGPT 25 U/L (16-61); Albumin, Serum 2.5 g/dL (3.2-5.0); Alkaline Phosphatase 49 U/L (45-117); Bilirubin, Direct 0.16 mg/dL (0.00-0.30); Protein, Total 7.5 g/dL (6.4-8.2)
[2021-04-22 13:55] LABS: Procalcitonin 0.35 ng/mL (0.00-0.09)
[2021-04-22 14:20] LABS: Pathologist Review Reviewed
--- NOTE | 2021-04-22 15:18 | CON.PCM.ID_ITS ---
Assessment & Plan Assessment/Plan (1) COVID-19: PLAN: Sx started around 04/13. Unknown vaccinated history. Worsening O2 here. Has not received dex or anticoagulation this admission. Platelets of 80 are not necessarily a contraindication to anticoag. Checking basic labs now, results include d-dimer of 11. Would start dex and anticoag. Likely unable to get CTA due to his GFR. Cdiff also (+), is on po vanc. Zosyn was stopped by primary team. Will follow, thank you (2) Acute kidney injury: (3) Altered mental status: HPI Consult Data Date of Consult: 04/22/21 HPI Narrative HPI Narrative: ESTELLA BUCIO, is a 70 M who presented 04/15 to the ED with syncope, weakness, confusion at PCP office. Covid (+) and hypoxic in ED. Admitted. Has h/o alzheimer's and stroke. Since admit, worsening o2, low grade temps. Limited ROS performed due to mental status. Denies pain, denies dyspnea/cough/sputum. [facility], [facility] Medical History Alzheimer disease COPD (chronic obstructive pulmonary disease) Coronary artery disease CVA (cerebral vascular accident) Dementia Diarrhea Former smoker HTN (hypertension) Hyperthyroidism Sleep apnea Stage 4 chronic kidney disease Home Medications albuterol sulfate 2 puff INHALATION Q4H PRN PRN 01/22/19 [History Last Taken Unknown] budesonide-formoterol 2 puff INHALATION BID PRN PRN 01/22/19 [History Last Taken Unknown] carvedilol 3.125 mg PO BID 01/22/19 [History Last Taken 05/16/20] nitroglycerin 0.4 mg SUBLINGUAL PRN PRN 01/22/19 [History Last Taken Unknown] cholestyramine-aspartame [Cholestyramine Light] 4 g PO TIDCM 10/22/20 [History Last Taken Unknown] cyanocobalamin (vitamin B-12) 1,000 mcg PO DAILY 10/22/20 [History Last Taken Unknown] Allergy/AdvReac Type Severity Reaction Status Date / Time tiotropium Allergy Swelling Verified 04/15/21 10:18 [From Spiriva with HandiHaler] Family History unable to obtain Surgical History (Updated 04/15/21 @ 16:20 by Latricia Harris) History of coronary artery stent placement Social History household members: spouse Smoking Status: Former smoker alcohol intake: current alcohol intake frequency: other substance use type: does not use Physical Exam Const Constitutional Narrative: oriented x1 General Appearance: lethargic HEENT HEENT Narrative: L eye bruising. Eyes PERRL and EOMs intact bilaterally Neck supple and No nodes Resp Auscultation: diminished lung sounds Cardio regular rate and regular rhythm GI normal to inspection, nondistended, normoactive bowel sounds Extremity no clubbing, cyanosis or edema Skin no rashes or lesions noted Neuro CN's II-XII intact bilaterally Lab / Micro Data Result Diagrams: 04/22/21 06:44 04/22/21 06:44 Labs: Laboratory Results - last 24 hr 04/21/21 06:16: Diff Path Review Reviewed 04/22/21 06:44: WBC 2.8 L, RBC 3.79 L, Hgb 11.8 L, Hct 37.0 L, MCV 97.6 H, MCH 31.1, MCHC 31.9 L, RDW Std Deviation 53.1 H, RDW Coeff of Kylie 14.6, Plt Count 82 L, MPV 10.0, Immature Gran % (Auto) 0.700, Neut % (Auto) 62.1, Lymph % (Auto) 27.6, [place] % (Auto) 8.8, Eos % (Auto) 0.4, Baso % (Auto) 0.4, Absolute Neuts (auto) 1.8 L, Absolute Lymphs (auto) 0.78 L, Nucleated RBC % 0 04/22/21 06:44: Sodium 148 H, Potassium 4.3, Chloride 118 H, Carbon Dioxide 23.0, Anion Gap 7, BUN 52 H, Creatinine 2.70 H, Estim Creat Clear Calc 19.42, Est GFR (MDRD) Af Amer 30 L, Est GFR (MDRD) Non-Af 25 L, BUN/Creatinine Ratio 19.3, Glucose 113 H, Calcium 8.9 04/22/21 13:05: D-Dimer Quant (PE/DVT) 11.04 H* 04/22/21 13:05: Total Bilirubin 0.50, Direct Bilirubin 0.16, AST 95 H, ALT 25, Alkaline Phosphatase 49, C-React Prot Ext Range 78.50 H, Total Protein 7.5, Albumin 2.5 L, Globulin 5.0 H 04/22/21 13:05: B-Natriuretic Peptide 156.4 H 04/22/21 13:05: Procalcitonin 0.35 H Radiology Impression Chest X-Ray 04/21/21 14:00 IMPRESSION: Bilateral infiltrates slightly increased in the upper lungs. Electronically Signed: Sergei Mckenna, at 15:27 EST Tel , Service support ,
--- NOTE | 2021-04-22 15:28 | PN.HOSP_ITS ---
Subjective Subjective Patient had low-grade fever last night, T-max 100.1 Fahrenheit. Discussed with ID. On dexamethasone and Lovenox subcu started. Initially Lovenox was not restarted because of periorbital edema and hematoma around left eye with subconjunctival hemorrhage and forehead laceration. Patient thrombocytes are also low. Objective Data Objective Data Vital Signs: Vital Signs Temp Pulse Resp BP Pulse Ox 98.5 F 105 H 22 H 152/109 H 95 04/22/21 09:21 04/22/21 15:00 04/22/21 12:39 04/22/21 09:21 04/22/21 14:06 Oxygen Flow Rate (L/min) 8 Oxygen Delivery Method Nasal Cannula Weight: 120 lb 9.486 oz Body Mass Index (BMI) 19.8 Intake & Output: Intake and Output for Last 24 Hours 04/20/21 04/21/21 04/22/21 23:59 23:59 23:59 Intake Total 270 / 270 1100 / 1100 1000 / 1000 Balance 270 / 270 1100 / 1100 1000 / 1000 Lab / Micro Data Result Diagrams: 04/22/21 06:44 04/22/21 06:44 Labs: Laboratory Results - last 24 hr 04/21/21 06:16: Diff Path Review Reviewed 04/22/21 06:44: WBC 2.8 L, RBC 3.79 L, Hgb 11.8 L, Hct 37.0 L, MCV 97.6 H, MCH 31.1, MCHC 31.9 L, RDW Std Deviation 53.1 H, RDW Coeff of Kylie 14.6, Plt Count 82 L, MPV 10.0, Immature Gran % (Auto) 0.700, Neut % (Auto) 62.1, Lymph % (Auto) 27.6, Cameron % (Auto) 8.8, Eos % (Auto) 0.4, Baso % (Auto) 0.4, Absolute Neuts (auto) 1.8 L, Absolute Lymphs (auto) 0.78 L, Nucleated RBC % 0 04/22/21 06:44: Sodium 148 H, Potassium 4.3, Chloride 118 H, Carbon Dioxide 23.0, Anion Gap 7, BUN 52 H, Creatinine 2.70 H, Estim Creat Clear Calc 19.42, Est GFR (MDRD) Af Amer 30 L, Est GFR (MDRD) Non-Af 25 L, BUN/Creatinine Ratio 19.3, Glucose 113 H, Calcium 8.9 04/22/21 13:05: D-Dimer Quant (PE/DVT) 11.04 H* 04/22/21 13:05: Total Bilirubin 0.50, Direct Bilirubin 0.16, AST 95 H, ALT 25, Alkaline Phosphatase 49, C-React Prot Ext Range 78.50 H, Total Protein 7.5, Albumin 2.5 L, Globulin 5.0 H 04/22/21 13:05: B-Natriuretic Peptide 156.4 H 04/22/21 13:05: Procalcitonin 0.35 H Micro: Microbiology 04/18/21 11:00 Stool Stool Lactoferrin - Final 04/18/21 11:00 Stool Enteric Bacteriology - Final 04/18/21 11:00 Stool C. difficile GDH Antigen & Toxins - Final 04/18/21 11:00 Stool C. difficile DNA Amplification - Final 04/18/21 11:00 Stool Stool Occult Blood (CHRISTY) - Final Occult Blood Positive 04/15/21 12:00 Urine, Clean Catch Legionella Antigen - Final 04/15/21 12:00 Urine, Clean Catch Streptococcus pneumoniae Antigen (M - Final 04/15/21 10:55 Nasal Secretion SARS-CoV-2 Antigen (Rapid) - Final SARS-CoV-2 (COVID 19) Radiography Diagnostic Testing: Radiology Impression Chest X-Ray 04/21/21 14:00 IMPRESSION: Bilateral infiltrates slightly increased in the upper lungs. Electronically Signed: Sergei Mckenna, at 15:27 EST Tel , Service support , Physical Exam Narrative General: Confused, disoriented agitated. Required Haldol and Phenergan. HEENT: Left periorbital area bruise. Subconjunctival bleed of bulbar conjunctiva. Oral: No Gingival or Mucosal Lesions/ Ulcerations Neck: Supple, No JVD, Negative Carotid Bruits Lungs: Air entry diminished in bilateral lung bases. Mild bilateral expiratory rhonchi and crepitations. On 8 L of oxygen Cardiovascular: Sinus rhythm with PVCs, Normal S1, Normal S2, No murmurs Abdomen: Bowel Sounds Present, Soft, Non Tender, Non-Distended : Incontinent on the diaper. No suprapubic tenderness. Extremities: No edema, Capillary Refill Less than 3 Seconds Skin: No rashes, No breakdown Musculoskeletal: Weakness of right leg mainly quadriceps and hip muscles seems chronic.No Tenderness to Palpation of Joints or Extremities. Neurological: Cranial nerves II-XII grossly intact, DTR 2+/4. Not following command Psych/Mental Status: Confused disoriented. Is in treatment Assessment & Plan Assessment/Plan (1) COVID-19: (2) Traumatic subconjunctival hemorrhage of left eye: (3) Closed left maxillary fracture: PLAN: Patient is a 70-year-old gentleman admitted with syncopal episode and hypoxia diagnosed with COVID-19 admitted to monitored bed for further management 1. Syncopal episode 04/17: Possible due to orthostasis from dehydration. Orthostatic blood pressure ordered. EEG reported no epileptiform discharges but generalized slowing of background rhythm with artifacts 04/18: Orthostatic blood pressure was positive and patient was given IV fluid 500 mL. 04/19: BP 112/48. 04/20: Confused and disoriented possible encephalopathy from metabolic infectious. 04/22: Patient is in delirium intermittent since admission. Required Haldol and Phenergan. Twelve-lead EKG shows LVH, QTC 447 ms at 87 bpm, undetermined rhyt hm. Started on Seroquel 50 mg daily and titrate as the dose as needed with holding parameter 2. Acute kidney injury, superimposed on chronic kidney disease stage III. Baseline creatinine 1.8, creatinine on admission was 2.35. 04/22: Initially creatinine came down to 2. 0 and then increased to 2.7. Patient not candidate for remdesivir since beginning because of KENNY 3. COVID-19 pneumonia with secondary bacterial superinfection with hypoxia and C. difficile colitis: And patient is started on dexamethasone. Remdesivir was not started in view of impaired kidney function and most of the duration of his symptoms not clear at this point 04/18: Patient on 3 to 4 L of oxygen, tachypneic, wheezing and rhonchi. Patient is also more lethargic and obtunded. Repeat chest x-ray shows worsening of infiltrate in bilateral lower lobes. Started on IV Zosyn. Patient also has diarrhea. Stool for enteric bacteriology panel negative. Lactoferrin positive. Stool for occult blood positive. 04/19: Patient having fever T-max 101.2 Fahrenheit. On broad-spectrum antibiotic. C. difficile toxin negative with positive C. difficile PCR suggestive of recent infection. Started on vancomycin liquid by nighttime hospitalist Mild normocytic normocytic anemia. Patient hemoglobin did not show major change 04/20: Intermittent fever. On antibiotic. I gave phone call to patient's and patient's daughter and talked to both of them and patient's son. Gave clinical update regarding Covid pneumonia with bacterial superinfection, kidney dysfunction, hypoxia, C. difficile colitis. 04/21: Mild low-grade fever. Leukopenia today and thrombocytopenia since admission but is stable. Baby aspirin frequency increased to every other day. Heparin subcu was discontinued 04/22: On dexamethasone. Lovenox 30 mg subcu twice daily. Zosyn was discontinued on 04/21 Because of worsening leukopenia and thrombocytopenia 4. Closed head injury with Acute fractures left maxillary sinus with hemorrhage within the sinus. Plan is for conservative management only at this point Patient also could not advance right lower extremity as told by physical therapist. Right hip x-ray with pelvis ordered. 04/21: No acute osseous abnormality found. Flexion extension at hip and knee joints are not tender. 04/22: Improvement in the bruise of the left periorbital region 5. Hypertension - Blood pressure controlled, home medications continued with dose adjustment as needed 6. Dyslipidemia -Patient is on statin therapy, continued at home dose 7. Alzheimer's dementia ?Supportive care 8. COPD ?Aerosol treatments as needed 9. DVT prophylaxis SCDs only in view of patient left maxillary sinus fracture with hemorrhage. Lovenox 30 MG subcu twice daily Living will/advanced directive/end of life care: Patient does have living will or advanced directive. His is power of deputy commonwealth's attorney for health. After discussion of benefits/risks procedures involved with full code, DNR CC arrest and DNR CC, the patient's , daughter and son all agree for DNRCC arrest with no intubation Patient doesn't want artificial life support including intubation, tube feed, ventilator and/chest compression, central venous catheter, vasopressor and DC shock if needed Total time spent in [id number] encounter in discussion of advanced directive 16 minutes. Charges/Coding Visit Charges Inpatient E&M: 68276 Subs Hosp L2
[2021-04-22] MEDS: QUEtiapine 25 MG Tablet PO (22:11)
[2021-04-22] MEDS: Carvedilol 6.25 MG Tablet PO (22:16)
[2021-04-23] VITALS (14 sets, daily range): BP systolic 134–155; BP diastolic 73–93; PULSE 60–95; RESP 15–24; TEMP 36.4–36.8; O2SAT 88–96
[2021-04-23] MEDS: Vancomycin 125 MG/5 ML Susp PO.SYRINGE PO ×3 (01:14→14:18)
[2021-04-23] MEDS: Albuterol 2.5 MG/3 ML VIAL.NEB. INHALATION ×2 (05:47→13:10)
[2021-04-23] MEDS: Budesonide Respules 0.5 MG/2 ML AMPUL.NEB. INHALATION (05:47)
--- NOTE | 2021-04-23 05:49 | CPS ---
pt keeps taking aero mask off -encouraged to keep on aero tx --nurse aware
[2021-04-23 08:38] LABS: Absolute Lymphocyte Count 0.63 X10^3/uL (0.83-4.51); Absolute Neutrophil Count 1.5 X10^3/uL (2.0-7.7); Basophil# 0.01 X10^3/uL; Basophil% 0.4 % (0-1); Hematocrit 36.1 % (40-54); Hemoglobin 11.4 g/dL (13.0-16.5); Lymphocyte # 0.63 X10^3/ul (0.83-4.51); Lymphocyte % 26.4 % (19-41); Mean Corp Hgb Conc 31.6 g/dL (32-36); Mean Corpuscular Hgb 31.1 pg (27.0-32.0); Mean Corpuscular Volume 98.6 fL (80-94); Mean Platelet Vol. 10.2 fl (6.2-12.0); Monocyte# 0.21 X10^3/uL; Monocyte% 8.8 % (0-10); NRBC Flagged by Analyzer 0 % (0-5); Neutrophil # 1.53 X10^3/uL (2.7-7.7); POSITIVE MORPHOLOGY YES; Platelet Count 105 K/mm3 (150-450); RBC Distribution Width CV 14.6 % (11.6-14.6); RBC Distribution Width SD 53.5 fl (35.1-43.9); Red Blood Count 3.66 M/mm3 (4.6-6.2); White Blood Count 2.4 K/mm3 (4.4-11.0)
[2021-04-23 08:53] LABS: Differential Indicated SCAN CRITERIA MET
[2021-04-23 08:56] LABS: ALB/GLOB Ratio 0.5 RATIO (0.9-2.4); AST(SGOT) 69 U/L (15-37); Alanine Aminotransfer ALT/SGPT 23 U/L (16-61); Albumin, Serum 2.4 g/dL (3.2-5.0); Alkaline Phosphatase 50 U/L (45-117); Anion Gap 12 (5-15); BUN 63 mg/dL (7-18); Calcium,Total 8.9 mg/dL (8.5-10.1); Chloride 119 mmol/L (98-107); Creatinine, Serum 2.63 mg/dL (0.70-1.30); EST Glomerular Filtration Rate 26 mL/min (>60); Est Glom Filt Rate - Afr Amer 31 mL/min (>60); Estimated Creatinine Clearance 19.97 ml/min; Glucose 146 mg/dL (74-106); Potassium 4.5 mmol/L (3.5-5.1); Protein, Total 7.4 g/dL (6.4-8.2); Sodium Level 150 mmol/L (136-145)
[2021-04-23 09:07] LABS: Differential Comment SCANNED; Reactive Lymphocyte 1+
[2021-04-23] MEDS: Enoxaparin 30 MG/0.3 ML Syringe SC ×2 (09:28→21:08)
[2021-04-23] MEDS: Cyanocobalamin 500 MCG Tablet 1000 MCG PO (09:29)
[2021-04-23] MEDS: QUEtiapine 25 MG Tablet PO (09:29)
[2021-04-23] MEDS: Famotidine 20 MG Tablet PO (09:29)
[2021-04-23] MEDS: Carvedilol 6.25 MG Tablet PO ×2 (09:29→21:08)
[2021-04-23] MEDS: Menthol/Lanolin/Calamine/Znox 113 GM Tube 1 APPLIC TOPICAL ×4 (09:31→21:09)
[2021-04-23] MEDS: dexAMETHasone 4 MG/ML Vial 6 MG IV (09:31)
[2021-04-23] MEDS: Aspirin E.C. 81 MG Tablet PO (09:32)
[2021-04-23] MEDS: 0.9% Saline Lock 10 ML Syringe IV (09:33)
--- NOTE | 2021-04-23 12:50 | CASEMGMT ---
RIP e-mailed Ivet at [facility] letting her know that a referral is being made to Hospice. RIP asked if [facility] can still take patient if he is on Hospice and if that changes the amount of O2 they can take. Kerri Best AUTOMOBILE RENTAL CLERK HEATHER
--- NOTE | 2021-04-23 13:01 | CASEMGMT ---
RN spoke with patient's daughter about Hospice and she was in agreement. Physician feels patient is Hospice appropriate. SW called patient's daughter, Stefanie and she confirmed they would like to talk with Hospice. SW explained that SW will make a referral and Hospice will call family to set up meeting. Patient's daughter asked that Hospice call patient's . SW explained patient would still not be able to go home. Stefanie said both she and her mom do not feel patient can go home. SW explained he will likely still go to [facility] on Hospice and his insurance will cover this. SW called Hospice regarding referral and also faxed referral. Kerri Best NET ARCHITECT HEATHER
--- NOTE | 2021-04-23 13:06 | PN.HOSP_ITS ---
Subjective Subjective Afebrile. Patient mildly tachypneic respiratory 20-24/min. On 8 L of oxygen. Procalcitonin 0.35. BNP 156. D-dimer 11.04. Venous duplex negative. Patient confused, fidget. Unsupervised POS [address] evaluation. Patient not able to participate because of altered mental status for modified barium swallow Objective Data Objective Data Vital Signs: Vital Signs Temp Pulse Resp BP Pulse Ox 97.6 F L 87 24 H 153/93 H 93 04/23/21 04:51 04/23/21 05:48 04/23/21 05:48 04/23/21 04:51 04/23/21 04:51 Oxygen Flow Rate (L/min) 8.5 Oxygen Delivery Method Nasal Cannula Weight: 120 lb 13.013 oz Body Mass Index (BMI) 19.8 Intake & Output: Intake and Output for Last 24 Hours 04/21/21 04/22/21 04/23/21 23:59 23:59 23:59 Intake Total 1100 / 1100 1060 / 1060 Output Total 2 / 2 Balance 1100 / 1100 1058 / 1058 Lab / Micro Data Result Diagrams: 04/23/21 08:25 04/23/21 08:25 Labs: Laboratory Results - last 24 hr 04/21/21 06:16: Diff Path Review Reviewed 04/22/21 06:44: WBC 2.8 L, RBC 3.79 L, Hgb 11.8 L, Hct 37.0 L, MCV 97.6 H, MCH 31.1, MCHC 31.9 L, RDW Std Deviation 53.1 H, RDW Coeff of Kylie 14.6, Plt Count 82 L, MPV 10.0, Immature Gran % (Auto) 0.700, Neut % (Auto) 62.1, Lymph % (Auto) 2 7.6, Keith % (Auto) 8.8, Eos % (Auto) 0.4, Baso % (Auto) 0.4, Absolute Neuts (auto) 1.8 L, Absolute Lymphs (auto) 0.78 L, Nucleated RBC % 0 04/22/21 06:44: Sodium 148 H, Potassium 4.3, Chloride 118 H, Carbon Dioxide 23.0, Anion Gap 7, BUN 52 H, Creatinine 2.70 H, Estim Creat Clear Calc 19.42, Est GFR (MDRD) Af Amer 30 L, Est GFR (MDRD) Non-Af 25 L, BUN/Creatinine Ratio 19.3, Glucose 113 H, Calcium 8.9 04/22/21 13:05: D-Dimer Quant (PE/DVT) 11.04 H* 04/22/21 13:05: Total Bilirubin 0.50, Direct Bilirubin 0.16, AST 95 H, ALT 25, Alkaline Phosphatase 49, C-React Prot Ext Range 78.50 H, Total Protein 7.5, Albumin 2.5 L, Globulin 5.0 H 04/22/21 13:05: B-Natriuretic Peptide 156.4 H 04/22/21 13:05: Procalcitonin 0.35 H Micro: Microbiology 04/18/21 11:00 Stool Stool Lactoferrin - Final 04/18/21 11:00 Stool Enteric Bacteriology - Final 04/18/21 11:00 Stool C. difficile GDH Antigen & Toxins - Final 04/18/21 11:00 Stool C. difficile DNA Amplification - Final 04/18/21 11:00 Stool Stool Occult Blood (CHRISTY) - Final Occult Blood Positive 04/15/21 12:00 Urine, Clean Catch Legionella Antigen - Final 04/15/21 12:00 Urine, Clean Catch Streptococcus pneumoniae Antigen (M - Final 04/15/21 10:55 Nasal Secretion SARS-CoV-2 Antigen (Rapid) - Final SARS-CoV-2 (COVID 19) Radiography Diagnostic Testing: Radiology Impression Venous Doppler Study 04/22/21 12:35 Interpretation Summary No evidence for acute deep venous thrombosis bilateral lower extremities with patent and compressible bilateral great saphenous veins. Abbreviated COVID-19 protocol utilized The examination was noted to be technically difficult Ordering Physician: Micheal Kulkarni Referring Physician: Scott Steven Performed By: Domenica Cameron RVT Physical Exam Narrative General: Confused, disoriented agitated. Does not follow command HEENT: Left periorbital area bruise. Subconjunctival bleed of bulbar conjunctiva. Oral: Oral mucosa dry. No Gingival or Mucosal Lesions/ Ulcerations Neck: Supple, No JVD, Negative Carotid Bruits Lungs: Air entry diminished in bilateral lung bases. Mild bilateral expiratory rhonchi and crepitations. On 8 L of oxygen Cardiovascular: Sinus rhythm with PVCs, Normal S1, Normal S2, No murmurs Abdomen: Bowel Sounds Present, Soft, Non Tender, Non-Distended : Incontinent on the diaper. No suprapubic tenderness. Extremities: No edema, Capillary Refill Less than 3 Seconds Skin: No rashes, No breakdown Musculoskeletal: Weakness of right leg mainly quadriceps and hip muscles seems chronic. He is in crawled in, position Neurological: Cranial nerves II-XII grossly intact, DTR 2+/4. Not following command Psych/Mental Status: Confused disoriented. Assessment & Plan Assessment/Plan (1) COVID-19: (2) Traumatic subconjunctival hemorrhage of left eye: (3) Closed left maxillary fracture: PLAN: Patient is a 70-year-old gentleman admitted with syncopal episode and hypoxia diagnosed with COVID-19 admitted to monitored bed for further management 1. Syncopal episode 04/17: Possible due to orthostasis from dehydration. Orthostatic blood pressure ordered. EEG reported no epileptiform discharges but generalized slowing of background rhythm with artifacts 04/18: Orthostatic blood pressure was positive and patient was given IV fluid 500 mL. 04/19: BP 112/48. 04/20: Confused and disoriented possible encephalopathy from metabolic infectious. 04/22: Patient is in delirium intermittent since admission. Required Haldol and Phenergan. Twelve-lead EKG shows LVH, QTC 447 ms at 87 bpm, undetermined rhythm. Started on Seroquel 50 mg daily and titrate as the dose as needed with holding parameter 04/23: Patient awake during the night and sleeps during the day. On Seroquel 25 mg a.m. and 50 mg at bedtime daily. 2. Acute kidney injury, superimposed on chronic kidney disease stage III. Baseline creatinine 1.8, creatinine on admission was 2.35. 04/22: Initially creatinine came down to 2. 0 and then increased to 2.7. Patient not candidate for remdesivir since beginning because of KENNY 04/23: Creatinine increased to 2.63, BUN 63. Patient is incontinent. On D5W for nutritional purpose. Serum sodium 150 3. COVID-19 pneumonia with secondary bacterial superinfection with hypoxia and C. difficile colitis: And patient is started on dexamethasone. Remdesivir was not started in view of impaired kidney function and most of the duration of his symptoms not clear at this point 04/18: Patient on 3 to 4 L of oxygen, tachypneic, wheezing and rhonchi. Patient is also more lethargic and obtunded. Repeat chest x-ray shows worsening of infiltrate in bilateral lower lobes. Started on IV Zosyn. Patient also has diarrhea. Stool for enteric bacteriology panel negative. Lactoferrin positive. Stool for occult blood positive. 04/19: Patient having fever T-max 101.2 Fahrenheit. On broad-spectrum antibiotic. C. difficile toxin negative with positive C. difficile PCR suggestive of recent infection. Started on vancomycin liquid by nighttime hospitalist Mild normocytic normocytic anemia. Patient hemoglobin did not show major change 04/20: Intermittent fever. On antibiotic. I gave phone call to patient's and patient's daughter and talked to both of them and patient's son. Gave clinical update regarding Covid pneumonia with bacterial superinfection, kidney dysfunction, hypoxia, C. difficile colitis. 04/21: Mild low-grade fever. Leukopenia today and thrombocytopenia since admission but is stable. Baby aspirin frequency increased to every other day. Heparin subcu was discontinued 04/22: On dexamethasone. Lovenox 30 mg subcu twice daily. Zosyn was discontinued on 04/21 Because of worsening leukopenia and thrombocytopenia 04/23: Venous duplex negative for DVT. 4. Closed head injury with Acute fractures left maxillary sinus with hemorrhage within the sinus. Plan is for conservative management only at this point Patient also could not advance right lower extremity as told by physical therapist. Right hip x-ray with pelvis ordered. 1/2: No acute osseous abnormality found. Flexion extension at hip and knee chery nts are not tender. 04/22: Improvement in the bruise of the left periorbital region 5. Hypertension - Blood pressure controlled, home medications continued with dose adjustment as needed 6. Dyslipidemia -Patient is on statin therapy, continued at home dose 7. Alzheimer's dementia ?Supportive care 8. COPD ?Aerosol treatments as needed 9. DVT prophylaxis SCDs only in view of patient left maxillary sinus fracture with hemorrhage. Lovenox 30 MG subcu twice daily I called patient's Mrs. Jada Beltran and daughter Stefanie and talk to both of them. They agree with moving forward with hospice care consult. They wanted inpatient hospice in [place]. CODE STATUS changed to DNRCC, hospice care. Total time of the visit including total time spent in counseling or coordination of care, (more than 50% of the total time, spent in obtaining medical information from nurses and other ancillary care providers,explaining to the patient about labs, imaging, diagnosis and management), discussion with strategic consultant, palliative care/hospice care consult and talking to patient's and daughter, review of labs and imaging is 30 minutes. Living will/advanced directive/end of life care: Patient does have living will or advanced directive. His is power of metal casting trades worker for health. After discussion of benefits/risks procedures involved with full code, DNR CC arrest and DNR CC, the patient's , daughter and son all agree for DNRCC arrest with no intubation Patient doesn't want artificial life support including intubation, tube feed, ventilator and/chest compression, central venous catheter, vasopressor and DC shock if needed Total time spent in [id number] encounter in discussion of advanced directive 16 minutes. Charges/Coding Visit Charges Inpatient E&M: 15338 [facility] L3
--- NOTE | 2021-04-23 14:23 | CASEMGMT ---
According to fax machine information did not go through to Hospice. SW called Hospice to check on referrals. Referral did not go through. SW was given an alternate fax number: [phone]. SW re-faxed information. Kerri Best LADIES UNDERWEAR OPERATOR HEATHER
--- NOTE | 2021-04-23 14:35 | CASEMGMT ---
RIP called [facility] as RIP has not heard back about accepting patient if on Hospice. RIP left her a voice mail. Kerri Best CLERK GENERAL HEATHER
--- NOTE | 2021-04-23 15:49 | CASEMGMT ---
SW called Hospice to check on referral. The referral has not been processed yet. Kerri Best CONTROL SYSTEMS DEVELOPER HEATHER
[2021-04-23] MEDS: QUEtiapine 25 MG Tablet 50 MG PO (21:08)
[2021-04-24] VITALS (10 sets, daily range): BP systolic 144–168; BP diastolic 74–94; PULSE 67–87; RESP 17–18; TEMP 36.1–36.6; O2SAT 92–96
[2021-04-24] MEDS: Vancomycin 125 MG/5 ML Susp PO.SYRINGE PO ×3 (00:50→12:54)
[2021-04-24 05:27] LABS: Absolute Lymphocyte Count 0.64 X10^3/uL (0.83-4.51); Absolute Neutrophil Count 3.7 X10^3/uL (2.0-7.7); Hematocrit 35.6 % (40-54); Hemoglobin 11.4 g/dL (13.0-16.5); Lymphocyte # 0.64 X10^3/ul (0.83-4.51); Lymphocyte % 13.5 % (19-41); Mean Corpuscular Hgb 31.8 pg (27.0-32.0); Mean Corpuscular Volume 99.2 fL (80-94); Monocyte# 0.34 X10^3/uL; Monocyte% 7.2 % (0-10); NRBC Flagged by Analyzer 0 % (0-5); Neutrophil # 3.72 X10^3/uL (2.7-7.7); Neutrophil % 78.7 % (47-70); POSITIVE MORPHOLOGY YES; Platelet Count 122 K/mm3 (150-450); RBC Distribution Width CV 14.5 % (11.6-14.6); RBC Distribution Width SD 53.1 fl (35.1-43.9); Red Blood Count 3.59 M/mm3 (4.6-6.2); White Blood Count 4.7 K/mm3 (4.4-11.0)
[2021-04-24 05:29] LABS: Differential Indicated SCAN CRITERIA MET
[2021-04-24 05:50] LABS: ALB/GLOB Ratio 0.5 RATIO (0.9-2.4); AST(SGOT) 48 U/L (15-37); Alanine Aminotransfer ALT/SGPT 20 U/L (16-61); Albumin, Serum 2.5 g/dL (3.2-5.0); Alkaline Phosphatase 52 U/L (45-117); Anion Gap 8 (5-15); BUN 79 mg/dL (7-18); BUN/Creat Ratio 26.9 RATIO (10-20); Calcium,Total 8.7 mg/dL (8.5-10.1); Chloride 120 mmol/L (98-107); Creatinine, Serum 2.94 mg/dL (0.70-1.30); EST Glomerular Filtration Rate 23 mL/min (>60); Est Glom Filt Rate - Afr Amer 27 mL/min (>60); Estimated Creatinine Clearance 17.86 ml/min; Globulin 5.1 g/dL (2.2-4.2); Glucose 165 mg/dL (74-106); Potassium 4.4 mmol/L (3.5-5.1); Protein, Total 7.6 g/dL (6.4-8.2); Sodium Level 149 mmol/L (136-145)
[2021-04-24 05:53] LABS: Differential Comment SCANNED
[2021-04-24] MEDS: Carvedilol 6.25 MG Tablet PO (09:05)
[2021-04-24] MEDS: QUEtiapine 25 MG Tablet PO (09:05)
[2021-04-24] MEDS: Famotidine 20 MG Tablet PO (09:06)
[2021-04-24] MEDS: dexAMETHasone 4 MG/ML Vial 6 MG IV (09:06)
[2021-04-24] MEDS: Cyanocobalamin 500 MCG Tablet 1000 MCG PO (09:07)
[2021-04-24] MEDS: Enoxaparin 30 MG/0.3 ML Syringe SC (09:09)
[2021-04-24] MEDS: Menthol/Lanolin/Calamine/Znox 113 GM Tube 1 APPLIC TOPICAL ×2 (09:10→12:54)
[2021-04-24] MEDS: Acetaminophen 325 MG Tablet 650 MG PO (09:10)
--- NOTE | 2021-04-24 10:13 | CASEMGMT ---
RIP spoke with Nikki at Hospice. Nikki said that they are meeting with family today at 11:30a. Family would like the inpatient unit. Patient is currently on 14 L so per Nikki he would likely qualify. Nikki said physician will need to do a doctor to doctor. RIP did place another call to [facility] at [facility] to inquire if patient could come on Hospice in the event the inpatient unit does not work out. A message was left. Kerri Best WAFER POLISHING WORKER HEATHER
--- NOTE | 2021-04-24 12:12 | CASEMGMT ---
RIP spoke with Nikki at Hospice and she told SW to have the physician call Dr Liu regarding patient. RIP passed along this message to Dr. Canela. Kerri ROMERO
--- NOTE | 2021-04-24 12:42 | CASEMGMT ---
Dr. Canela was able to get patient approved for the inpatient Hospice unit. RIP called Hospice about transportation and they will have Kristine call RIP back. Patient's daughter Stefanie called into the hospital. RIP updated Stefanie that patient was approved for the inpatient Hospice unit. RIP will notify her when he will get picked up. Plan: d/c to the inpatient Hospice Unit. Kerri Best LIBRARY AIDE HEATHER
--- NOTE | 2021-04-24 12:50 | PCM.DC.SUM ---
Providers Date of Admission: 04/15/21 Primary Care Physician: FARZANEH Horvath Consultations 04/22/21 10:35 Consult: Infectious Disease Routine Consulting Provider: Bud Cameron Reason for Consult: covid 19 pneumonia, c diff colitis, pancytopenia, zosyn DCed on 04/21 EMERGENT Consult: No MD Notified: Yes Date Notified: 04/22/21 Time Notified: 10:36 Method of Notification: Text Method of Consult:: In-Person Reason For Visit: COVID, SYNCOPAL EPISODE Diagnosis Discharge Diagnosis (1) COVID-19: Status: Acute Code(s): U07.1 - COVID-19 (2) Traumatic subconjunctival hemorrhage of left eye: Status: Acute Code(s): H11.32 - Conjunctival hemorrhage, left eye (3) Closed left maxillary fracture: Status: Acute Code(s): S02.40DA - Maxillary fracture, left side, initial encounter for closed fracture Medications at Discharge Home Medications nitroglycerin 0.4 mg SUBLINGUAL PRN PRN 01/22/19 acetaminophen [Tylenol] 650 mg PO Q6H PRN PRN #0 tab 04/24/21 albuterol sulfate 2.5 mg INHALATION Q6HWA.RT #3 ml 04/24/21 budesonide 0.5 mg INHALATION Q12H.RT #0 ml 04/24/21 dexamethasone sodium phosphate 6 mg IV DAILY #0 ml 04/24/21 quetiapine 25 mg PO DAILY #0 tab 04/24/21 quetiapine 50 mg PO QHS #0 tab 04/24/21 Hospital Course Operations None Summary of Care Provided Minutes Spent on Discharge: 43 Hospital Course: Mr. Beltran is a 70-year-old white male who presented to the emergency department at [facility] on 04/15/2021 with a chief complaint of a syncopal episode. The patient was evidently in his PCPs office on the day of presentation at which time he had a syncopal episode. All of his history and presentation was taken from the ED physician and the squad report as the patient was unable to give any history and presentation. He evidently had been experiencing frequent falls at home for the a couple days prior to presentation. Evidently while he was at his PCPs office he had a syncopal episode and became incontinent of urine. He was subsequently brought to the emergency department and found to be hypoxic with an oxygen saturation in the high 80s while on 6 L nasal cannula. A Covid test was therefore performed and found to be positive. The patient has a complicated past medical history including stroke, dementia, COPD, vitamin D deficiency, hyperlipidemia, hypothyroidism and CKD. Unfortunately he sustained a left maxillary fracture and a traumatic subconjunctival hemorrhage of the left eye with the fall he did experience at home. On presentation he had some acute kidney injury on CKD stage III. His baseline creatinine was found to be 1.8 but he unfortunately had elevated creatinine at 2.35 which has not thus far been responsive to IV fluids. Given the fact he was found to have COVID-19 he was started on Decadron but remdesivir was unable to be utilized secondary to his kidney injury. Given his presentation an EEG was performed and found to have generalized slowing but no focal or paroxysmal findings suggestive of seizures. It was suspected that his syncopal episode was related to dehydration. Unfortunately, his course progressed to him being more lethargic tachypneic and him being febrile. He was placed on broad-spectrum antibiotics. He did have some diarrhea so a C. difficile was ordered. He was found to be antigen positive but toxin negative. Given the fact his toxin was negative I suspect that this is not an acute C. difficile infection and more likely related to his Covid and antibiotic use. Vancomycin was discontinued as it was started empirically. He had progressive worsening oxygenation and by the day of discharge she required 5 L nasal cannula. A BNP was performed and found to be only 156. He did have an elevated D-dimer at 11.04. Unfortunately a CTA of his chest was on able to be performed given his renal function but bilateral duplex exams were performed and negative for DVT. Given his worsening, on 04/23/2019 to the attending physician called his and daughter and discussed his case. Hospice consult was recommended and they agreed. Hospice did evaluate the patient on 04/24/2020 and felt he was appropriate for inpatient management. The case was discussed with Dr. Emanuel and he was accepted for hospice care at discharge. He will be discharged to the inpatient hospice unit in [place]. CODE STATUS was changed to DNR CC and he was discharged on 04/24/2021. Discharge diagnoses: Syncope Acute hypoxic respiratory failure COVID-19 pneumonia Metabolic encephalopathy KENNY CKD stage III Subconjunctival hemorrhage Traumatic closed left maxillary fracture Hypertension Hyperlipidemia Alzheimer's dementia COPD Bradycardia Physical Exam Const alert Constitutional Narrative: Older white male lying in right side lying in bed, awake and attempts to talk but speech is incoherent at this time, appears comfortable currently, on 15 L nasal cannula, patient appears much older than stated age General Appearance: cooperative and frail Exam Limitations: altered mental status Nutritional Appearance: thin HEENT normocephalic HEENT Narrative: Left-sided black eye/ecchymosis, GRAND TRAVERSE, mucous membranes are dry, dentition is poor, temporal wasting bilaterally Eyes PERRL, EOMs intact bilaterally and conjunctivae normal Eyes Narrative: No scleral icterus Neck no lymphadenopathy, supple and no JVD Neck Narrative: Trachea midline without thyroid enlargement Resp normal respiratory effort, no retractions and no use of accessory muscles Resp Narrative: Currently no respiratory distress or use of accessory muscles, diffusely diminished without adventitious sounds Auscultation: Negative for crackles, rales, rhonchi or wheezes Cardio regular rate, regular rhythm, S1 normal heart sound, S2 normal heart sound, no murmurs, no rub, no gallops, no clicks and no JVD GI normal to inspection, nondistended, normoactive bowel sounds, soft to palpation, non-tender and non-distended GI Narrative: Thin Extremity no clubbing, cyanosis or edema Extremity Narrative: Significant decrease in lean muscle mass Skin skin turgor normal and no jaundice Skin Narrative: Scattered ecchymotic areas Neuro No oriented x3, CN's II-XII intact bilaterally, moves all extremities and no focal motor deficits Sensorium / Orientation: awake Speech: Negative for speech normal Motor Exam: Negative for strength 5/5 throughout Psych Psych Narrative: Difficult to assess secondary to mental status Weight / BMI Weight Weight: 54.2 kg Body Mass Index (BMI) 19.8 ABG / Lab / Microbiology Data Result Diagrams: 04/24/21 04:51 04/24/21 04:51 Laboratory: Laboratory Results - last 24 hr 04/24/21 04:51: WBC 4.7, RBC 3.59 L, Hgb 11.4 L, Hct 35.6 L, MCV 99.2 H, MCH 31.8, MCHC 32.0, RDW Std Deviation 53.1 H, RDW Coeff of Kylie 14.5, Plt Count 122 L, MPV 10.0, Immature Gran % (Auto) 0.600, Neut % (Auto) 78.7 H, Lymph % (Auto) 13.5 L, Archuleta % (Auto) 7.2, Eos % (Auto) 0.0, Baso % (Auto) 0.0, Absolute Neuts (auto) 3.7, Absolute Lymphs (auto) 0.64 L, Nucleated RBC % 0, Differential Comment SCANNED 04/24/21 04:51: Sodium 149 H, Potassium 4.4, Chloride 120 H, Carbon Dioxide 21.0, Anion Gap 8, BUN 79 H, Creatinine 2.94 H, Estim Creat Clear Calc 17.86, Est GFR (MDRD) Af Amer 27 L, Est GFR (MDRD) Non-Af 23 L, BUN/Creatinine Ratio 26.9 H, Glucose 165 H, Calcium 8.7, Total Bilirubin 0.60, AST 48 H, ALT 20, Alkaline Phosphatase 52, Total Protein 7.6, Albumin 2.5 L, Globulin 5.1 H, Albumin/Globulin Ratio 0.5 L Microbiology: Microbiology 04/21/21 13:54 Blood Culture (Wb) - Left Hand Blood Culture - Preliminary No growth in 48 hours. 04/21/21 13:45 Blood Culture (Wb) - Right Hand Blood Culture - Preliminary No growth in 48 hours. 04/18/21 11:00 Stool Stool Lactoferrin - Final 04/18/21 11:00 Stool Enteric Bacteriology - Final 04/18/21 11:00 Stool C. difficile GDH Antigen & Toxins - Final 04/18/21 11:00 Stool C. difficile DNA Amplification - Final 04/18/21 11:00 Stool Stool Occult Blood (CHRISTY) - Final Occult Blood Positive 04/15/21 12:00 Urine, Clean Catch Legionella Antigen - Final 04/15/21 12:00 Urine, Clean Catch Streptococcus pneumoniae Antigen (M - Final 04/15/21 10:55 Nasal Secretion SARS-CoV-2 Antigen (Rapid) - Final SARS-CoV-2 (COVID 19) Meaningful Use Info Meaningful Use Diagnoses (Choose all that apply): None applicable Discharge Plan Admission Admit Date/Time: 04/15/21 13:17 Primary Reason for Your Visit: Syncope Attending Provider: Vivian Canela Primary Care Provider: Edi Steven Consulting Providers: Bud Cameron Discharge Orders/Prescriptions Prescriptions: New quetiapine 25 mg Tablet 50 mg PO QHS Qty: 0 RF: 0 quetiapine 25 mg Tablet 25 mg PO DAILY Qty: 0 RF: 0 acetaminophen [Tylenol] 325 mg Tablet 650 mg PO Q6H PRN PRN (Reason: Pain Score 1-10/Temp > 100.7 F) Qty: 0 RF: 0 albuterol sulfate 2.5 mg /3 mL (0.083 %) Solution For Nebulization 2.5 mg inhalation Q6HWA.RT Qty: 3 RF: 0 budesonide 0.5 mg/2 mL Suspension For Nebulization 0.5 mg inhalation Q12H.RT Qty: 0 RF: 0 dexamethasone sodium phosphate 4 mg/mL Solution 6 mg IV DAILY Qty: 0 RF: 0 Continued nitroglycerin 0.4 MG tablet, sublingual 0.4 mg sublingual PRN PRN (Reason: chest pain) RF: 0 Discontinued carvedilol 25 MG tablet 3.125 mg PO BID RF: 0 albuterol sulfate 1 INHALER inhaler 2 puff inhalation Q4H PRN PRN (Reason: Bronchodialation) RF: 0 budesonide-formoterol 10.2 GM HFA aerosol inhaler 2 puff INHALATION BID PRN PRN (Reason: SOB/wheezing) RF: 0 cyanocobalamin (vitamin B-12) 1,000 mcg Tablet 1,000 mcg PO DAILY RF: 0 Cholestyramine Light 4 gram Powder 4 g PO TIDCM RF: 0 Referrals / Follow Up: Edi Steven PA [Primary Care Provider] - Disposition Disposition (needs filled in before D/C Order can be placed): Hospice in Medical Facility Charges/Coding Visit Charges Inpatient E&M: 83341 [facility] H[facility]
--- NOTE | 2021-04-24 13:43 | CASEMGMT ---
RIP received a call from Freda with Hospice. 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 SW notified RN, psychiatric secretary, and patient's daughter, Stefanie. SW did try to call patient's , but she did not answer and does not have a voice mail. Per Stefanie patient's is likely finally getting some sleep. Plan: d/c to [facility]. Hospice had their mobile unit transport patient. Kerri ROMERO
--- NOTE | 2021-04-24 14:04 | NURSING ---
Addendum entered by Naima Haq 04/24/21 14:05: iv x 2 left in per hospice request Original Note: report called to inpatient hospice [facility] [phone]
== END 2021-04-24 14:37 | disposition hospice, inpatient (51) | DRG 177 ==
LOC: ED 13:30 → PCU 13:38
PROVIDERS: Internal Medicine; Internal Medicine Infectious Disease; Admitting Provider Internal Medicine; Emergency Provider Emergency Medicine; PCP Physician Assistant; Visit Provider Internal Medicine
DX: U07.1 COVID-19 (principal); J12.82 Pneumonia due to coronavirus disease 2019; J96.01 Acute respiratory failure with hypoxia; I21.4 Non-ST elevation (NSTEMI) myocardial infarction; G93.41 Metabolic encephalopathy; J15.9 Unspecified bacterial pneumonia; A04.72 Enterocolitis due to Clostridium difficile, not specified as recurrent; N17.9 Acute kidney failure, unspecified; N18.4 Chronic kidney disease, stage 4 (severe); S02.40DA Maxillary fracture, left side, initial encounter for closed fracture; J44.0 Chronic obstructive pulmonary disease with (acute) lower respiratory infection; F02.80 Dementia in other diseases classified elsewhere, unspecified severity, without behavioral disturbance, psychotic disturbance, mood disturbance, and anxiety; G30.9 Alzheimer's disease, unspecified; E86.0 Dehydration; H11.32 Conjunctival hemorrhage, left eye; E78.5 Hyperlipidemia, unspecified; W19.XXXA Unspecified fall, initial encounter; I12.9 Hypertensive chronic kidney disease with stage 1 through stage 4 chronic kidney disease, or unspecified chronic kidney disease; I25.10 Atherosclerotic heart disease of native coronary artery without angina pectoris; E05.90 Thyrotoxicosis, unspecified without thyrotoxic crisis or storm; G47.30 Sleep apnea, unspecified; Z87.891 Personal history of nicotine dependence; R29.6 Repeated falls; Y93.9 Activity, unspecified; Y92.9 Unspecified place or not applicable; Z79.899 Other long term (current) drug therapy; Z86.73 Personal history of transient ischemic attack (TIA), and cerebral infarction without residual deficits; Z95.5 Presence of coronary angioplasty implant and graft; Z23 Encounter for immunization
CPT/HCPCS: 36415; 70450; 71045; 73502; 80048; 80053; 80076; 81001; 82274; 82728; 82962; 83605; 83630; 83735; 83880; 84100; 84145; 84484; 85025; 85379; 85610; 85730; 86140; 87040; 87426; 87449; 87493; 87506; 92526; 92611; 93005; 93970; 94640; 95819; 97110; 97116; 97162; 97166; 97530; 97535; 99285; 99406; G0008; J7030; J7040; J7120; 90686; A4216